=== PATIENT | female | born 1965 | race Caucasian/White ===

== ENCOUNTER 2018-02-28 08:43 | Observation (INO) | payer OTHER, MEDICAID, SELFPAY ==
[2018-02-28] VITALS (19 sets, daily range): BP systolic 86–137; BP diastolic 50–89; PULSE 59–81; RESP 13–24; TEMP 36.2–37.2; O2SAT 94–100; BMI 29.5
--- NOTE | 2018-02-28 | PATH_ITS ---
[facility] Accession Number: [id number] . 01 Material submitted: . BILATERAL FALLOPIAN TUBES AND OVARIES . 02 Diagnosis: Bilateral Fallopian Tubes And Ovaries: Cellular fibrothecoma involving one ovary, benign. Multiple serous cysts involving opposite ovary. Fallopian tubes unremarkable. I/03/07/2018 . 02 Comment: This case is reviewed by Drs. Danielle and Antonino, who agree with the diagnosis. . 02 Electronically signed: . Colin Pozo MD, Pathologist NPI- [id number] . 01 Gross description: . Received in formalin, labeled bilateral fallopian tubes + ovaries, are multiple pieces of apparent ovarian tissue (11.2 x 7.5 x 2.0 cm in aggregate) and two fimbriae (fimbria #1-1.3 x 1.2 x 0.3 cm; fimbria #2-2.5 x 1.5 x 0.4 cm). The ovarian tissue has denny-yellow shiny bosselated and focally flat and cystic (0.1 cm-1.0 cm) serosa. The parenchyma is denny-yellow and red-brown solid and firm. The fimbriae are denny and unremarkable. Double [employer]er ovarian tissue is submitted in cassettes A1 and A2. The fimbriae are bisected and entirely submitted in cassettes A3 and A4. ([id number]) /[facility] . 02 Microscopic: . Sections of the ovarian tissue reveal a tumor which apparently is involving one of the ovaries. The tumor is characterized by a solid proliferation of spindle-shaped cells consistent with ovarian stroma. The cells are arranged in a fascicular and somewhat storiform pattern, and there are nests of small lut einized cells scattered throughout. Mitotic figures are present and are enumerated to be as many as 4 per 10 high-powered field. There is no evidence of necrosis. There is no cellular atypia. The histology is felt to be quite consistent with a cellular fibrothecoma, and in spite of the mitotic activity is considered to be clinically benign. In order to confirm this impression, immunohistochemistry is performed. . IMMUNOHISTOCHEMISTRY RESULTS: Inhibin: Cells negative Calretinin: Scattered positive tumor cells EMILIO: Tumor cells negative Smooth muscle actin: Tumor cells negative, blood vessels stain positive Desmin: Tumor cells negative WT-1: Tumor cells strongly positive CD56: Tumor cells strongly positive Ki-67: Less than 5% cells stain positive . INTERPRETATION: This immunophenotype appears to support the light microscopic impression of a cellular fibrothecoma. The sections apparently from the other opposite ovary reveal multiple benign serous cysts, but negative for any evidence of the stromal tumor previously described. The fallopian tubes are essentially unremarkable. . 02 Pathologist provided ICD-10: D27.9 . 02 CPT . 798320, [id number], [id number] Performed at: 01 [facility] [address] [id number] MD Barron Snell MD Phone: [phone] Performed at: 02 [facility] [place] [address] [place], [place] [id number] MD Jaxon Panda MD Phone: [phone]
--- NOTE | 2018-02-28 09:50 | DI.CT.S_ITS ---
PROCEDURE: CT ABDOMEN PELVIS W CON INDICATIONS: severe abdominal pain, N/V TECHNIQUE: After the administration of intravenous contrast, 5 mm thick sections acquired from the diaphragm to the symphysis. 5 mm coronal and sagittal reformats were acquired. For radiation dose reduction, the following was used: automated exposure control, adjustment of mA and/or kV according to patient size. COMPARISON: None. FINDINGS: Image quality: Excellent. ABDOMEN: Lung bases: Lung bases are clear. Heart size is normal. Solid organs: Liver is normal in size and enhancement. Gallbladder appears normal. Biliary system is non dilated. Pancreas enhances normally. Spleen is normal in size and enhancement. No adrenal nodules. Kidneys demonstrate normal size and enhancement, without hydronephrosis. Peritoneum and bowel: Bowel loops demonstrate normal wall thickness and caliber. No free fluid or air. Nodes and vessels: No retroperitoneal or mesenteric adenopathy by size criteria. Aorta and inferior vena cava are normal in size. Miscellaneous: No ventral hernias. At the right lower quadrant contiguous with small bowel loops there is a small amount of free fluid near the expected position of the appendix. A rounded calcification measuring approximately 4 mm in this area also is present posteriorly, and the finding was discussed with the emergency room physician. Reportedly the patient has had their appendix removed previously. There also is adjacent sigmoid diverticulosis and the appearance might represent acute sigmoid diverticulitis similar to the right of midline. PELVIS: Genitourinary: Bladder wall thickness is normal. At the superior left adnexal area there is a solid-appearing masslike structure, measuring up to 6.5 cm AP, 5.7 cm transverse and 5.2 cm craniocaudad. The etiology is uncertain, but there is a potential of both left ovarian torsion or a left ovarian malignancy as cause of this appearance. At the upper border of this structure is a rounded cysts, measuring up to 3.4 cm. Miscellaneous: No inguinal hernias or adenopathy. Sigmoid diverticulosis is present, the sigmoid colon swings rightward within the lower pelvis. Bones: No suspicious bony lesions. No vertebral body compression fractures. IMPRESSION: 1. There is a complex constellation of findings and the exact etiology for the reported severe recurrent abdominal pain is not definitively established by this CT scanning. The left adnexal masslike structure is considered more likely malignancy than ovarian torsion, by appearance. Torsion remains a potential cause of this appearance. This structure at the left adnexa is shifted cephalad away from the usual position of the left ovary, and it may not be effectively assessed by transvaginal pelvic ultrasound. Pelvic ultrasound may be warranted, however, to provide additional assessment of vascularity and appearance of the left adnexal mass utilizing both transabdominal and transvaginal scanning. 2. At the right lower quadrant in the expected region of the appendix there is what appears to be inflammatory free fluid. However, on discussing this case with the emergency room physician the appendix has reportedly been removed and the fluid is not directly contiguous with the inferior tip of the cecum. It is, however, contiguous with a rightward extension of the sigmoid colon where significant diverticulosis is present. Acute diverticulitis may explain this finding. Note: The findings were discussed in detail with the emergency room physician caring for the patient. Surgical consultation is anticipated. Dictated by: Mikey Nath M.D. on 02/28/2018 at 11:24 Approved by: Mikey Nath M.D. on 02/28/2018 at 11:39
--- NOTE | 2018-02-28 09:54 | ED.ABDPAIN ---
HPI - Abdominal Pain General Chief Complaint: Abdominal Pain Stated Complaint: SEVERE ABD PAIN LEFT SIDE Time Seen by Provider: 02/28/18 08:54 Source: patient and family Mode of arrival: ambulatory Limitations: no limitations History of Present Illness HPI narrative: 52-year-old female presents with her in the chief complaint of severe abdominal pain. She states her symptoms have been worsening for the past 10 days and initiated on the right side of her lower abdomen event since spread throughout her belly though it seems to be most focused in her left lower quadrant right now. She has a terrible appetite and lost 7 lb. She admits to nausea but denies vomiting. Her pain is worse with any motion. She denies any radiation of her symptoms. She has improvement with rest. She denies fever or chills. MD complaint: abdominal pain Onset (ago): day(s) Pain Consistency: constant Location: diffuse Severity: severe Severity scale (1-10): 10 Quality: cramping Radiation: none Migration to: no migration Relieving factors: rest Exacerbating factors: movement Associated symptoms: nausea Related Data Home Medications Medication Instructions Recorded Confirmed No Known Home Medications 02/28/18 02/28/18 Allergies Allergy/AdvReac Type Severity Reaction Status Date / Time No Known Drug Allergies Allergy Verified 02/28/18 09:54 Review of Systems Review of Systems All systems reviewed & are unremarkable except as noted in HPI and below Constitutional Denies chills, Denies fever(s), Denies lethargy and Denies weakness Eyes Denies change in vision, Denies eye discharge, Denies irritation and Denies loss of vision ENT Ears, Nose, Mouth, and Throat: Denies change in voice, Denies neck pain and Denies sore throat Cardiovascular Denies chest pain, Denies irregular heart rhythm, Denies lightheadedness, Denies palpitations, Denies dyspnea, Denies dyspnea on exertion and Denies orthopnea Respiratory Denies cough, Denies dyspnea, Denies dyspnea on exertion and Denies wheezing Gastrointestinal Gastrointestinal: Reports abdominal pain, Denies change in bowel habits, Denies diarrhea, Reports nausea and Denies vomiting Genitourinary Denies hematuria, Denies flank pain, Denies urinary incontinence and Denies urinary urgency Musculoskeletal Denies neck pain Integumentary/Breasts Denies pruritus, Denies erythema, Denies rash and Denies wounds Neurologic Denies confusion, Denies loss of vision and Denies weakness Psychiatric Denies anxiety, Denies confusion, Denies depression, Denies homicidal ideation and Denies suicidal ideation Endocrine Denies palpitations Hematologic/Lymphatic Denies easy bruising Allergic/Immunologic Denies wheezing [facility] Surgical History Hx of appendectomy (Acute) Hx of tubal ligation (Acute) Previous section (Acute) Social History household members: spouse Smoking Status: Never smoker Exam Narrative Exam Narrative: 52-year-old female in obvious distress, in tears, clutching her lower abdomen Initial Vital Signs Initial Vital Signs: Vital Signs Temperature 98.4 F 02/28/18 09:16 Pulse Rate 70 02/28/18 09:16 Respiratory Rate 18 02/28/18 09:16 Blood Pressure 113/60 02/28/18 09:16 Pulse Oximetry 100 02/28/18 09:16 Const General: cooperative, well developed and acute distress Nutritional Appearance: well nourished Orientation: alert, awake, oriented x3 and not confused HENUT Head: normocephalic and atraumatic Ears: external ears normal and TM's normal bilaterally Nose: external nose normal and No nasal discharge Face and sinus: sinuses nontender, face symmetric, no sinus tenderness and No dry mucous membranes Mouth: oral mucosae normal and moist mucous membranes Teeth and gingiva: dentition normal Throat: tonsils normal and uvula midline Chest Chest: normal inspection of the chest Resp Effort & Inspection: normal respiratory effort, able to speak in complete sentences, no respiratory distress and no use of accessory muscles Auscultation: clear to auscultation bilaterally, no rales, no rhonchi and no wheezes GI Inspection: distended Palpation: firm, guarding and tender (Severe tenderness throughout, positive heel tap and so as) Auscultation: normal bowel sounds Course Orders Ordered: Lactated Ringer's (Lactated Ringers) 1,000 mls @ 100 mls/hr IV CONT BRANDEE Stop: 03/01/18 04:38 Last Admin: 02/28/18 18:51 Dose: 100 mls/hr Ketorolac Tromethamine (Toradol) 30 mg IV Q6HR PRN PRN Reason: Pain, Moderate (4-6) Stop: 03/05/18 18:07 Ondansetron HCl (Zofran) 4 mg IV Q6HR PRN PRN Reason: Nausea And Vomiting Oxycodone/Acetaminophen (Percocet 5/325) 2 tab PO Q4HR PRN PRN Reason: Pain, Severe (7-10) Discontinued Medications Benzocaine (Cepacol Lozenge) 1 each PO PRN PRN PRN Reason: Sore Throat Bupivacaine HCl/Epinephrine Bitart (Sensorcaine 0.5% W/ Epi (Pf)) 30 ml INJ NOW ONE Stop: 02/28/18 17:28 Last Admin: 02/28/18 17:27 Dose: 13 ml Fentanyl (Sublimaze) 100 mcg IV Q5MIN PRN PRN Reason: Pain, Severe (7-10) Hydromorphone HCl (Dilaudid) 1 mg IV Q15M BRANDEE Stop: 02/28/18 10:01 Last Admin: 02/28/18 12:04 Dose: 1 mg Admin: 02/28/18 10:17 Dose: 1 mg Sodium Chloride (Normal Saline 0.9%) 1,000 mls @ 150 mls/hr IV CONT BRANDEE Last Infusion: 02/28/18 12:05 Dose: 0 mls/hr Admin: 02/28/18 10:16 Dose: 150 mls/hr Cefazolin Sodium/Dextrose (Ancef) 2 gm in 100 mls @ 200 mls/hr IV NOW ONE Stop: 02/28/18 16:42 Last Infusion: 02/28/18 16:59 Dose: 0 mls/hr Admin: 02/28/18 16:50 Dose: 200 mls/hr Lactated Ringer's (Lactated Ringers) 1,000 mls @ 100 mls/hr IV CONT BRANDEE Last Infusion: 02/28/18 16:12 Dose: 100 mls/hr Admin: 02/28/18 15:55 Dose: 100 mls/hr Lactated Ringer's (Lactated Ringers) 1,000 mls @ 42 mls/hr IV CONT BRANDEE Last Infusion: 02/28/18 18:47 Dose: 0 mls/hr Admin: 02/28/18 16:15 Dose: 42 mls/hr Meperidine HCl (Demerol) 25 mg IV Q5MIN PRN PRN Reason: Pain or shivering Morphine Sulfate (Morphine) 2 mg IV Q5M PRN PRN Reason: Pain, Moderate (4-6) Morphine Sulfate (Morphine) 1 mg IV Q5M PRN PRN Reason: Pain, Mild (1-3) Ondansetron HCl (Zofran) 4 mg IV NOW ONE Stop: 02/28/18 09:41 Last Admin: 02/28/18 10:16 Dose: 4 mg Ondansetron HCl (Zofran) 4 mg IV NOW PRN PRN Reason: Nausea And Vomiting Consultations Consultation #1: Has her abdominal exam was considered quite impressive and concerning I called Dr. Monzon from General surgery nearly immediately upon completion of my exam. He has evaluated the patient at the bedside and requests abdominal CT before further recommendations can be made Consultation #2: Upon receipt of CT scan, and notice of ovarian involvement I placed a call to Dr. Morris who was happy see the patient at the bedside. She decides to take patient to OR Vital Signs - 8 hr 02/28/18 12:13 02/28/18 13:10 02/28/18 14:07 Temperature 99.0 F Pulse Rate 81 76 73 Respiratory Rate 17 24 16 Blood Pressure 126/89 H Blood Pressure [Left Arm] 107/60 132/74 H Pulse Oximetry 98 96 02/28/18 15:30 02/28/18 16:09 02/28/18 18:01 Temperature 97.1 F L 97.5 F L 97.1 F L Pulse Rate 66 72 60 Respiratory Rate 17 20 17 Blood Pressure 125/78 H 135/79 H 86/50 L Blood Pressure [Left Arm] Pulse Oximetry 96 94 02/28/18 18:06 02/28/18 18:11 02/28/18 18:16 Temperature Pulse Rate 60 59 L 71 Respiratory Rate 13 13 19 Blood Pressure 89/51 L 94/54 L 101/58 L Blood Pressure [Left Arm] Pulse Oximetry 94 94 96 02/28/18 18:22 02/28/18 18:31 02/28/18 18:35 Temperature 97.3 F L Pulse Rate 70 67 62 Respiratory Rate 16 18 16 Blood Pressure 110/67 113/67 108/71 Blood Pressure [Left Arm] Pulse Oximetry 95 96 02/28/18 19:05 Temperature 97.9 F Pulse Rate 67 Respiratory Rate 16 Blood Pressure 123/72 H Blood Pressure [Left Arm] Pulse Oximetry 94 MDM - Abdominal Pain Lab Data Result diagrams: 02/28/18 10:12 02/28/18 10:12 Lab Results 02/28/18 02/28/18 02/28/18 Range/Units 10:12 10:12 10:12 WBC 7.7 (4.5-11.0) X10^3/uL RBC 4.53 (4.0-5.2) X10^6/uL Hgb 13.6 (12.0-16.0) g/dL Hct 39.8 (36-46) % MCV 87.7 (80-100) fL MCH 30.1 (26-34) PG MCHC 34.3 (30-36) % RDW 12.9 (11.6-14.8) % Plt Count 239 (150-400) X10^3/uL Neut % (Auto) 67.5 (50-75) % Lymph % (Auto) 18.1 L (25-40) % [place] % (Auto) 13.6 (3-14) % Eos % (Auto) 0.4 L (2-4) % Baso % (Auto) 0.4 (0-2) % Neut # (Auto) 5200 (5839-0675) /uL Sodium 141 (137-145) mmol/L Potassium 3.9 (3.4-5.1) mmol/L Chloride 102 (98-107) mmol/L Carbon Dioxide 25 (22-32) mmol/L BUN 11 (7-17) mg/dL Creatinine 0.60 (0.52-1.04) mg/dL Estimated GFR > 60.0 (>60) mL/min BUN/Creatinine Ratio 18.3 (6-22) Glucose 103 H (70-100) mg/dL Lactate 1.3 (0.7-2.1) mmol/L Calcium 9.5 (8.4-10.2) mg/dL Total Bilirubin 0.8 (0.2-1.3) mg/dL AST 26 (14-36) IU/L ALT 34 (9-52) IU/L Alkaline Phosphatase 68 (38-126) U/L Total Protein 8.0 (6.3-8.2) g/dL Albumin 4.6 (3.5-5.0) g/dL Globulin 3.4 (1.7-4.1) g/dL Albumin/Globulin Ratio 1.4 (1.0-2.8) Lipase 148 (23-300) U/L Discharge Plan Departure Patient Disposition: Admitted As Inpatient Clinical Impression: Mass of left ovary, Pelvic pain Discharge Date/Time: 02/28/18 13:37 Interventions: ED Discharge Assessment Last Done: 02/28/18 13:26 Admit Date/Time: 02/28/18 13:12 Admit Provider: Lisa Morris
[2018-02-28] MEDS: ONDANSETRON 4 MG/2 ML INJ IV (10:16)
[2018-02-28] MEDS: SODIUM CHLORIDE 0.9% 1,000 ML 150 ML IV (10:16)
[2018-02-28] MEDS: HYDROMORPHONE 1 MG INJ IV ×2 (10:17→12:04)
[2018-02-28 10:26] LABS: Add Manual Diff / Slide Review NO; Basophils Percent Auto 0.4 % (0-2); Eosinophils Percent Auto 0.4 % (2-4); Hematocrit 39.8 % (36-46); Hemoglobin 13.6 g/dL (12.0-16.0); Lymphocytes Percent Auto 18.1 % (25-40); Mean Corpuscular HGB Conc 34.3 % (30-36); Mean Corpuscular Hemoglobin 30.1 PG (26-34); Mean Corpuscular Volume 87.7 fL (80-100); Monocytes Percent Auto 13.6 % (3-14); Neutrophils Absolute Auto 5200 /uL (3000-5900); Neutrophils Percent Auto 67.5 % (50-75); Platelet Count 239 X10^3/uL (150-400); Red Blood Cell Count 4.53 X10^6/uL (4.0-5.2); Red Cell Distribution Width 12.9 % (11.6-14.8); White Blood Cell Count 7.7 X10^3/uL (4.5-11.0)
[2018-02-28 10:33] LABS: Lactate (Lactic Acid) 1.3 mmol/L (0.7-2.1)
[2018-02-28 10:34] LABS: Alanine Aminotransferase 34 IU/L (9-52); Albumin 4.6 g/dL (3.5-5.0); Albumin Globulin Ratio 1.4 (1.0-2.8); Alkaline Phosphatase 68 U/L (38-126); Aspartate Aminotransferase 26 IU/L (14-36); BUN Creatinine Ratio 18.3 (6-22); Bilirubin Total 0.8 mg/dL (0.2-1.3); Blood Urea Nitrogen 11 mg/dL (7-17); Calcium 9.5 mg/dL (8.4-10.2); Carbon Dioxide 25 mmol/L (22-32); Chloride 102 mmol/L (98-107); Estimated Glomerular Filt Rate > 60.0 mL/min (>60); Globulin 3.4 g/dL (1.7-4.1); Glucose 103 mg/dL (70-100); HEMOLYSIS 23 (0-50); Lipase 148 U/L (23-300); Potassium 3.9 mmol/L (3.4-5.1); Sodium 141 mmol/L (137-145)
--- NOTE | 2018-02-28 14:12 | P.HPOB_ITS ---
History of Present Illness Reason for admission: pelvic mass Narrative: ENDER HERNANDEZ is a 52 year old female who presented to the emergency room with severe lower quadrant pain. Patient states she has been having intermittent lower quadrant pain for months. The pain would last for about 3 days. This time the pain came and did not resolve and has been over 10 days. She feels like she can't eat very much. She denies any diarrhea or constipation. Pain originally started a right lower quadrant now is centered more in the left lower quadrant. She states she feels very bloated. She denies any fevers. She denies any urinary tract infection symptoms. She denies any vaginal bleeding. She is postmenopausal. Patient has a 6.5 x 5.7 x 5.2 cm mass in the left adnexal area with some free fluid. Probability ovarian nature per the radiologist. [facility] Surgical History Hx of appendectomy (Acute) Hx of tubal ligation (Acute) Previous section (Acute) Social History household members: spouse Smoking Status: Never smoker Meds Home Medications Medication Instructions Recorded Confirmed Type No Known Home Medications 02/28/18 02/28/18 History Allergies Allergy/AdvReac Type Severity Reaction Status Date / Time No Known Drug Allergies Allergy Verified 02/28/18 09:54 Review of Systems Review of Systems All systems reviewed & are unremarkable except as noted in HPI and below Exam Vital Signs (past 8 hours): - 02/28/18 09:16 02/28/18 10:15 02/28/18 11:15 Temperature 98.4 F Pulse Rate 70 71 72 Respiratory Rate 18 19 15 Blood Pressure 113/60 Blood Pressure [Left Arm] 111/65 103/62 Pulse Oximetry 100 100 100 02/28/18 12:13 02/28/18 13:10 02/28/18 14:07 Temperature 99.0 F Pulse Rate 81 76 73 Respiratory Rate 17 24 16 Blood Pressure 126/89 H Blood Pressure [Left Arm] 107/60 132/74 H Pulse Oximetry 98 96 Oxygen Delivery Method Room Air Narrative Exam Narrative: HEENT exam within normal limits. No thyromegaly. Lungs are clear to auscultation percussion. Heart is regular rate and rhythm no S3-S4 or murmurs. Abdomen is distended with tenderness throughout. Difficult to determine if she has rebound. Pelvic exam was not performed. Extremities without edema and nontender Objective Labs Result Diagrams: 02/28/18 10:12 02/28/18 10:12 Labs: Laboratory Results - last 24 hr 02/28/18 02/28/18 02/28/18 10:12 10:12 10:12 WBC 7.7 RBC 4.53 Hgb 13.6 Hct 39.8 MCV 87.7 MCH 30.1 MCHC 34.3 RDW 12.9 Plt Count 239 Neut % (Auto) 67.5 Lymph % (Auto) 18.1 L [place] % (Auto) 13.6 Eos % (Auto) 0.4 L Baso % (Auto) 0.4 Neut # (Auto) 5200 Sodium 141 Potassium 3.9 Chloride 102 Carbon Dioxide 25 BUN 11 Creatinine 0.60 Estimated GFR > 60.0 BUN/Creatinine Ratio 18.3 Glucose 103 H Lactate 1.3 Calcium 9.5 Total Bilirubin 0.8 AST 26 ALT 34 Alkaline Phosphatase 68 Total Protein 8.0 Albumin 4.6 Globulin 3.4 Albumin/Globulin Ratio 1.4 Lipase 148 Assessment & Plan (1) Mass of left ovary: Current visit: Yes Status: Acute (2) Pelvic pain: Current visit: Yes Status: Acute Plan: Assessment/Plan Narrative: Discussed with the patient possible diagnosis of this mass. It could be a ovarian tumor either benign or malignant. Could be a pedunculated myoma. Unclear if this is the cause of her pain or not. Certainly if she has torsion of the mass that could be causing her intermittent pain. Discussed if this is ovarian cancer that she would need a staging laparotomy. She would probably be best served by having this performed by a [employer] oncologist. If this is a benign process just removal of this mass is appropriate. At the time of surgery other signs of cause of the pain could be undertaken. Patient was offered to be discharged and follow up with a [employer] oncologist versus with proceeding with a laparoscopy with a possible need for a 2nd procedure. Patient wishes to proceed with laparoscopy here. Consent form was reviewed with the patient. Risk of damage to internal organs such as bowel, bladder, and ureters were discussed with the patient. Small risk of bleeding or complication from anesthesia. Discussed the small risk of infection and she will be given IV antibiotics at the time of procedure. She is agreeable to have the pathologist look at the tissue. She understands if there is something that it involving her intestines I will be asking the general surgeon to come in and look at her. She is aware she might end up with a larger abdominal incision.
--- NOTE | 2018-02-28 14:23 | PC.NURSE ---
Patient arrived to room 201, oriented to room and call light. Patient notified that UA is needed, she states she just went. specimen collection cup placed in bathroom for next void. Patient reports continuous aching to abdomen with intermittent stabbing pains to LLQ, tolerating pain at this time, as she reports pain medication given downstairs made her feel kind of spacey. Bert at bedside. Patient NPO for anticipated surgery today with Dr. Morris.
[2018-02-28] MEDS: LACTATED RINGERS 1,000 ML 100 ML IV ×2 (15:55→18:51)
[2018-02-28] MEDS: LACTATED RINGERS 1,000 ML 42 ML IV (16:15)
--- NOTE | 2018-02-28 16:22 | PC.NURSE ---
Jaquelin shift note: Patient transported to OR with Ray RN and second RN accompanied by . Patient awake and alert, calm, and pleasant. NPO x 24 hours, initiated IVF.
--- NOTE | 2018-02-28 16:45 | PM.PREOP ---
Pre-operative Note Interval Note Pre-op Check: Yes History & Physical exam performed today by Physician Changes: No
[2018-02-28] MEDS: CEFAZOLIN 2 GM/100 ML FROZ.PIGGY IV (16:50)
--- NOTE | 2018-02-28 17:14 | SUR.OPER ---
Lithotomy on padded OR bed, head on pillow, arms secured on padded arm boards at <90 degrees abduction. Legs secured in padded yellow fins stirrups.
[2018-02-28] MEDS: BUPIVACAINE 0.5% W/ EPI (PF) VIAL 30 ML INJ (17:27)
--- NOTE | 2018-02-28 18:23 | P.OP_ITS ---
Operative Date/Time/Diagnoses Date of procedure: 02/28/18 Time of procedure: 18:10 Pre-op diagnosis: Pelvic pain and adnexal mass Post-op diagnosis: same Procedure & Clinicians Procedure: Laparoscopic bilateral salpingo-oophorectomy Same procedure as scheduled: No (Right ovary had excrescences that warranted removed) Indications: Patient with severe abdominal pain and large adnexal mass Surgeon: Lisa Morris Click Yes if Unassisted: Yes Anesthesia Type: General Operative Notes Findings: Filmy adhesions between the liver and the anterior abdominal wall. Large likely torsed mass attached to the left ovary. Adhesions of the omentum to the uterus and the anterior abdominal wall as well as the right tube and ovary. Excrescences on the surface of the right ovary. Adhesions behind the uterus. Adhesions of small bowel to the posterior right broad ligament. Normal appearing uterus. Closure Type: primary Specimen(s): none sent (Bilateral tubes and ovaries, peritoneal fluid for cytology) Estimated Blood Loss (mL): 10 Blood products transfused: none Procedure in detail: Patient was brought to the operating room where she underwent general anesthesia. She was placed in low [facility] stirrups and prepped and draped in usual sterile fashion. Antibiotics were in prior to beginning of the case. Pulsatile stockings were in place and functional. Warming was with blankets. A single-tooth tenaculum was placed on the anterior lip of the cervix and the cervix dilated to #6 Hegar dilator. The Asha uterine manipulator was placed and balloon inflated with 3 mL of air. The area of the incisions were injected with half percent Marcaine with epinephrine. An incision was made in the umbilicus with a scalpel. The incision was carried down the fascial layer which was incised transversely and held with 0 Vicryl suture. The perineum was entered bluntly. The his son cannula was placed in the abdomen. The abdomen was insufflated with CO2. 2 5 mm trocar were placed under direct visualization in the right and left lower quadrant. There did not appear to be any damage with placement of the trocars. There was free blood stained fluid next to the uterus which was suctioned and sent for cytology. Adhesions of the omentum to the uterus were removed with the PK forceps. The left fallopian tube was grasped and the infundibulopelvic ligament was cauterized and cut. Staying close to the ovary continuing to cauterize and cut along the broad ligament until the utero-ovarian ligament and tube were cauterized and cut allowing the left tube and ovary with the mass to be freed. Additional dissection bluntly to allow visualization of the right tube and ovary. The right tube and ovary were also removed in the same fashion. Adequate hemostasis was noted. An Endo-Catch bag was placed through the umbilical incision and both tubes and ovaries were placed in the bag and brought up to the umbilical incision. The tubes and ovaries were removed without spillage. The abdomen was reinsufflated and adequate hemostasis was noted. Irrigation was performed. The CO2 was allowed to escape from the abdomen. The trochars were removed. The fascial layer of the umbilicus was closed with 0 Vicryl x2. Skin was closed with 4-0 Monosoft. The patient went to recovery room in good condition. Counts of instruments and sponges were correct. Complications: none Condition: stable Disposition: observation Plan for aftercare: Patient will be monitored for pain and nausea improvement. Likely home in less than 24 hrs.
--- NOTE | 2018-02-28 18:31 | SUR.PHASEI ---
Report called to Amelia
--- NOTE | 2018-02-28 18:47 | SUR.PHASEI ---
Patient transferred to the floor, VS stable. Drsg cdi x3. Anna-pad checked with Amelia. IV saline locked.
--- NOTE | 2018-02-28 18:57 | PC.NURSE ---
Jaquelin shift note: Patient return to AC from recovery with Kiet RN. Patient awake and alert, VSS and O2 sat 97% on RA. Incisions x 3 to left/right, mid abdomen, with bandaids, CDI. Abdomen round, hypoactive BS. Peripad in place, CDI. IVF initiated, no nausea or vomiting. at bedside providing supportive care, call light within reach.
[2018-03-01 00:50] VITALS: BP 131/74; PULSE 78; RESP 16; TEMP 36.9; O2SAT 94
--- NOTE | 2018-03-01 02:08 | PC.NURSE ---
Patient has 3 lap sites covered by bandaids. The center bandaid by umbilicus has old drainage with no new drainage.
[2018-03-01 05:00] VITALS: BP 148/76; PULSE 77; RESP 17; TEMP 36.6; O2SAT 99
--- NOTE | 2018-03-01 07:11 | PM.DS.1 ---
History of Present Illness Date Patient Seen: 03/01/18 Time Patient Seen: 07:16 Chief complaint: SEVERE ABD PAIN LEFT SIDE Narrative: Patient with severe abdominal pain for the last 11 days with intermittent pain prior to that time who came in finally to the emergency room. She was found to have a 6 cm solid appearing mass, likely ovary on CT scan. She was taken for laparoscopic removal. Discharge Providers Date of admission: 02/28/18 13:12 Discharge provider: Lisa Morris MD Summary Discharge Diagnosis: Left ovarian cyst likely torsion status post laparoscopic BSO with lysis of adhesions Hospital Course: Patient recovered from anesthesia and is feeling much better than prior to the surgery. She denies any nausea. She has minimal gassy pains in her abdomen. Patient denies any need for pain medicine. Status at Discharge Functional status at discharge: independent ambulation Overall status at discharge: patient is progressing back to baseline Time Spent with Patient Less than 30 minutes Exam Vital Signs (past 8 hours): - 03/01/18 00:50 03/01/18 05:00 Temperature 98.5 F 97.9 F Pulse Rate 78 77 Respiratory Rate 16 17 Blood Pressure 131/74 H 148/76 H Pulse Oximetry 94 99 Oxygen Delivery Method Room Air Oxygen Flow Rate 2 Narrative Exam Narrative: Abdomen is soft, minimally tender. Her in dressings are dry. Minimal vaginal bleeding. Extremities without edema and nontender. Objective Labs Result Diagrams: 02/28/18 10:12 02/28/18 10:12 Labs: Laboratory Results - last 24 hr 02/28/18 02/28/18 02/28/18 10:12 10:12 10:12 WBC 7.7 RBC 4.53 Hgb 13.6 Hct 39.8 MCV 87.7 MCH 30.1 MCHC 34.3 RDW 12.9 Plt Count 239 Neut % (Auto) 67.5 Lymph % (Auto) 18.1 L [place] % (Auto) 13.6 Eos % (Auto) 0.4 L Baso % (Auto) 0.4 Neut # (Auto) 5200 Sodium 141 Potassium 3.9 Chloride 102 Carbon Dioxide 25 BUN 11 Creatinine 0.60 Estimated GFR > 60.0 BUN/Creatinine Ratio 18.3 Glucose 103 H Lactate 1.3 Calcium 9.5 Total Bilirubin 0.8 AST 26 ALT 34 Alkaline Phosphatase 68 Total Protein 8.0 Albumin 4.6 Globulin 3.4 Albumin/Globulin Ratio 1.4 Lipase 148 Discharge Plan Discharge Plan Patient Disposition: Home Provider Discharge Instructions Diet: Regular Activity: as tolerated Skin/Wound/Dressing Care Report to your healthcare provider any signs of infection, such as:: chills, fever, increased pain and unusual drainage Dressing: can remove bandage after 24 hours and get steristrips wet pat dry remove in 1 week ok if they fall off prior Discharge Data Attending Provider: Lisa Morris Admit Date/Time: 02/28/18 13:12
[2018-03-01 07:57] VITALS: BP 125/75; PULSE 57; RESP 16; TEMP 37; O2SAT 99
--- NOTE | 2018-03-01 12:10 | PC.NURSE ---
discharge pt states pain is controlled without medication. up independently in room. d/c instructions provided to pt and . notified of f/u apt with MD and to contact MD if any additional questions or concerns. Rx for pain meds given to pt as ordered by MD. pt states she took all belongings with her. PIV removed prior to d/c. pt left in w/c with [employer] escort and to car.
--- NOTE | 2018-03-01 15:52 | CM.IDA ---
DCP Assessment Note: Home today w/spouse, no barriers to safe DC home. Discharge Planning/Care Management CM Discharge Assessment Start: 03/01/18 07:54 Freq: Status: Discharge Protocol: Document 03/01/18 07:54 BRYAN (Rec: 03/01/18 07:57 BRYAN [id number]) Discharge Planning Assessment Assigned Athletic Coordinator BRYAN DPOA/Assigned Designee Name Bert Yusuf Contact Information [phone] Advance Directives? No History Provided By Patient Prior Living Arrangements House Household Members spouse Type of transporation used prior to Drives own vehicle admit Independent with ADL's Yes Is patient alert and oriented? Yes Barriers to Discharge No Discharge Plan Home Transportation Arrangement Spouse Referrals Initiated None needed Additional Comment Close outpt follow up Whiteboard Updated in Patient Room with Yes name and ext. # of Athletic Coordinator
--- NOTE | 2018-03-04 | PATH_ITS ---
Note [facility] Accession Number: [id number] TESTS RESULT FLAG UNITS REF RANGE LAB Clinician Provided Cytology Information No. of containers..01 Other (Miscellaneous) 01 PERITONEAL FLUID DIAGNOSIS: 02 PERITONEAL FLUID NEGATIVE FOR MALIGNANT CELLS. Pathologist ICD10: 02 R18.8 02 Colin Pozo MD, Pathologist NPI- [id number] David Boone, Artist Agent ([facility]) 01 20 CC, PINK, CLOUDY /LCS FLAG LEGEND: L-Low Normal,H-High Normal,LL-Alert Low,HH-Alert High <-Panic Low,>-Panic High,A-Abnormal,AA-Critical Abnormal Performed at: 01 =Z [facility] [address] [place] [address] [address] [facility], [place] [address] Barron Snell MD, 02 LCLWA [facility] [address] [place] [id number] Jaxon Panda MD, Performed at: 01 [facility] [address], [place], [place] [id number] MD Barron Snell MD Phone: [phone]
== END 2018-03-01 11:10 | disposition home or self-care (01) ==
LOC: ED 13:11 → AC 13:33
PROVIDERS: Admitting Provider Specialist; Emergency Provider Emergency Medicine; Visit Provider Specialist
PROC: (CPT 49320; principal; 2018-02-28 14:00)
DX: N83.9 Noninflammatory disorder of ovary, fallopian tube and broad ligament, unspecified (principal); K66.0 Peritoneal adhesions (postprocedural) (postinfection); R18.8 Other ascites; D27.9 Benign neoplasm of unspecified ovary
CPT/HCPCS: 58661; 36591; 74177; 80053; 83605; 83690; 85025; 88307; 88341; 88342; 96361; 96374; 96375; 96376; 99283; 99285; G0378; J0330; J0690; J1100; J1170; J2250; J2405; J2704; J3010; Q9967

== ENCOUNTER → 2018-11-15 09:21 | Outpatient (CLI) | payer OTHER, MEDICAID, SELFPAY ==
[2018-02-28 13:39] VITALS: BMI 29.5
--- NOTE | 2018-11-15 | DI.US.S_ITS ---
PROCEDURE: US ABDOMEN LIMITED INDICATIONS: RIGHT SIDED SUBCUTANEOUS MASS TECHNIQUE: Real-time focused scanning was performed of the abdomen, with image documentation. COMPARISON: [facility], CT, CT ABDOMEN PELVIS W CON, 02/28/2018, 10:47. FINDINGS: 5.5 x 2.1 x 5.4 cm isoechoic lobulated soft tissue mass corresponding to the palpable abnormality. No vascularity. IMPRESSION: Possible lipoma corresponding to the palpable abnormality; however findings are nonspecific and differential diagnosis would include both benign and malignant etiologies. If indicated soft tissue MRI could be performed for further characterization. Dictated by: Gordy JAMESON Interpreted: Aileen White MD on 11/15/2018 at 15:54 Approved by: Aileen White M.D. on 11/18/2018 at 17:30
== END ==
PROVIDERS: Visit Provider Nurse Practitioner Family
DX: R22.2 Localized swelling, mass and lump, trunk (principal)
CPT/HCPCS: 76705

== ENCOUNTER → 2018-11-27 16:19 | Outpatient (CLI) | payer OTHER, MEDICAID, SELFPAY ==
[2018-02-28 13:39] VITALS: BMI 29.5
--- NOTE | 2018-11-27 | DI.MG.S_ITS ---
BILATERAL DIGITAL SCREENING MAMMOGRAM 3D/2D WITH CAD: 11/27/2018 CLINICAL: Routine screening. Baseline by default exam. No prior exams were available for comparison. The tissue of both breasts is heterogeneously dense. This may lower the sensitivity of mammography. Current study was also evaluated with a Computer Aided Detection (CAD) system. No significant masses, calcifications, or other findings are seen in either breast. IMPRESSION: NEGATIVE There is no mammographic evidence of malignancy. A 1 year screening mammogram is recommended. This exam was interpreted at Station ID: [id number]. NOTE: For mammograms, a report in lay terms will be sent to the patient. Approximately 15% of breast malignancies will not be visualized mammographically. In the management of a palpable breast mass, a negative mammogram must not discourage biopsy of a clinically suspicious lesion. Electronically Signed By: Aileen echevarria/myke:11/27/2018 18:46:10 letter sent: Normal Exam ACR BI-RADS Category 1: Negative [id number]
== END ==
PROVIDERS: Visit Provider Nurse Practitioner Family
DX: Z12.31 Encounter for screening mammogram for malignant neoplasm of breast (principal)
CPT/HCPCS: 77063; 77067

== ENCOUNTER 2019-01-15 09:41 | Inpatient (IN) | payer OTHER, MEDICAID, SELFPAY ==
[2018-02-28 13:39] VITALS: BMI 29.5
[2019-01-15] VITALS (23 sets, daily range): BP systolic 102–139; BP diastolic 60–77; PULSE 65–82; RESP 12–24; TEMP 36.1–37.1; O2SAT 91–100; BMI 30.2
--- NOTE | 2019-01-15 | PATH_ITS ---
[facility] Accession Number: [id number] . 01 Material submitted: . colon - PORTION OF SIGMOID COLON . 02 Diagnosis: Portion Of Sigmoid Colon, Resection: Segment of colon with diverticulosis, mural abscess, and serositis, consistent with clinical history of perforated diverticulitis. Negative for dysplasia or malignancy. [facility]/01/21/2019 . 02 Electronically signed: . Stewart Posey MD, PhD, Pathologist NPI- [id number] . 01 Gross description: . Received in formalin, labeled sigmoid colon portion, is an unoriented portion of colon (length-15.2 cm, resection margin #1 diameter-1.5 cm, resection margin #2 diameter-2.5 cm) with attached mesentery (up to 6.5 cm in depth). The resection margins are received stapled. The specimen is focally covered in tyson-white, smooth, shiny exudate. The mucosa is denny with compact distorted folds containing diffuse diverticula. No nodules or masses are identified. The resection margins are inked black. Section code: (A1) resection margin #1, longitudinal sales development representative; (A2) resection margin #2, sales development representative longitudinal section; (A3-A8) sales development representative serial sections submitted from resection margin #1 to #2. ([id number]) /FRR . 02 Pathologist provided ICD-10: K57.20, K65.0 . 02 CPT . 172341 Performed at: 01 [facility] [address] [id number] MD Barron Snell MD Phone: [phone] Performed at: 02 [facility] [address] [place], [place] [id number] MD Vickie Jimenez MD Phone: [phone]
--- NOTE | 2019-01-15 10:24 | ED_ITS ---
HPI - Abdominal Pain General Chief Complaint: Abdominal Pain Stated Complaint: lower abdominal pain/to back Time Seen by Provider: 01/15/19 10:11 Source: patient Mode of arrival: ambulatory Limitations: no limitations History of Present Illness HPI narrative: Patient is a 53-year-old female who presents with severe lower abdominal pain. She had a colonoscopy 5 days ago outpatient just routine. She said she was told she has severe diverticulosis. However she started having severe pain yesterday more in her mid right side. She also has some flank pain. She says every time she urinates she feels better but she denies any urinary frequency or dysuria. She has not had any blood. She denies any history of k idney stones. She sometimes feels nauseated but she has not been vomiting no fevers. MD complaint: abdominal pain Related Data Home Medications Medication Instructions Recorded Confirmed No Known Home Medications 02/28/18 01/15/19 Allergies Allergy/AdvReac Type Severity Reaction Status Date / Time No Known Drug Allergies Allergy Verified 01/15/19 15:39 Review of Systems Review of Systems ROS Unobtainable: All systems reviewed & are unremarkable except as noted in HPI and below Constitutional Denies chills, Denies fever(s), Denies lethargy and Denies weakness Eyes Denies change in vision, Denies eye discharge, Denies irritation and Denies loss of vision Cardiovascular Denies dyspnea and Denies dyspnea on exertion Respiratory Denies cough, Denies dyspnea, Denies dyspnea on exertion and Denies wheezing Gastrointestinal Gastrointestinal: Reports as per HPI Genitourinary Denies hematuria, Denies flank pain, Denies urinary incontinence and Denies uri nary urgency Musculoskeletal Denies back pain, Denies muscle weakness, Denies numbness and Denies tingling Integumentary/Breasts Denies pruritus, Denies erythema, Denies rash and Denies wounds Neurologic Denies loss of vision, Denies numbness, Denies tingling and Denies weakness Allergic/Immunologic Denies wheezing PFSH Medical History Heart murmur (Acute) Surgical History Hx of appendectomy (Acute) Hx of tubal ligation (Acute) Previous section (Acute) S/P laparoscopic procedure (Resolved ~02/28/18) Family History Mother Diabetes mellitus Social History marital status: household members: spouse occupational status: employed Smoking Status: Never smoker alcohol intake: current substance use type: does not use Family History Mother Diabetes mellitus Social History marital status: household members: spouse occupational status: employed Smoking Status: Never smoker alcohol intake: current substance use type: does not use Exam Initial Vital Signs Initial Vital Signs: Vital Signs Temperature 98.8 F 01/15/19 10:01 Pulse Rate 75 01/15/19 10:01 Respiratory Rate 20 01/15/19 10:01 Blood Pressure 137/71 01/15/19 10:01 Pulse Oximetry 100 01/15/19 10:01 Const General: cooperative and well developed Nutritional Appearance: well nourished Orientation: alert, awake, oriented x3 and not confused [facility] Head: normocephalic and atraumatic Nose: external nose normal Eyes General: appearance normal, both eyes and all related structures EOM: EOM intact bilaterally Neck Neck: normal visual inspection and full ROM Chest Chest: normal inspection of the chest Resp Effort & Inspection: normal respiratory effort Auscultation: clear to auscultation bilaterally, no rales, no rhonchi and no wheezes Cardio Rate: regular rate Rhythm: regular rhythm Heart Sounds: S1 normal and S2 normal GI Inspection: normal to inspection Palpation: soft, guarding and tender (Diffusely tender all over abdomen signifi cantly tender in the lower area.) Skin General: no rashes or lesions noted, No jaundice and No petechiae Neuro General: alert, oriented x3, gait normal and no focal motor deficits Speech: speech normal Extrem General: full ROM, no clubbing, cyanosis or edema, no pedal edema and no calf tenderness Course Orders Ordered: ED Orders 01/15/19 10:30 Complete Blood Count AUTO DIFF Stat Comprehensive Metabolic Panel Stat Lipase Stat 01/15/19 11:16 CT abdomen pelvis w con Stat 01/15/19 16:31 Wound Culture and Gram Stain Routine Fentanyl (Sublimaze) 50 mcg IV Q5MIN PRN PRN Reason: Pain, Moderate (4-6) Hydromorphone HCl (Dilaudid) 0.5 mg IV Q2H PRN PRN Reason: Pain, Severe (7-10) Hydromorphone HCl (Dilaudid) 0.5 mg IV Q5MIN PRN PRN Reason: Pain, Moderate (4-6) Last Admin: 01/15/19 17:55 Dose: 0.5 mg Admin: 01/15/19 17:50 Dose: 0.5 mg Admin: 01/15/19 17:45 Dose: 0.5 mg Admin: 01/15/19 17:40 Dose: 0.5 mg Hydroxyzine HCl (Vistaril) 25 mg IM NOW PRN PRN Reason: Pain, Mild (1-3) Sodium Chloride (Normal Saline 0.9%) 1,000 mls @ 150 mls/hr IV CONT BRANDEE Last Infusion: 01/15/19 15:10 Dose: 150 mls/hr Admin: 01/15/19 10:46 Dose: 150 mls/hr Sodium Chloride (Normal Saline 0.9%) 1,000 mls @ 125 mls/hr IV CONT BRANDEE Lactated Ringer's (Lactated Ringers) 1,000 mls @ 42 mls/hr IV CONT BRANDEE Last Infusion: 01/15/19 18:21 Dose: 0 mls/hr Admin: 01/15/19 17:10 Dose: 42 mls/hr Infusion: 01/15/19 17:10 Dose: 42 mls/hr Admin: 01/15/19 15:21 Dose: 42 mls/hr Lorazepam (Ativan) 0.25 mg IV NOW PRN PRN Reason: Anxiety Metoclopramide HCl (Reglan) 10 mg IV NOW PRN PRN Reason: Nausea And Vomiting Ondansetron HCl (Zofran) 4 mg IV NOW PRN PRN Reason: Nausea And Vomiting Discontinued Medications Sodium Chloride 1,000 ml/ (Bacitracin 50,000 unit) 0 ml IRR NOW ONE Stop: 01/15/19 16:40 Last Admin: 01/15/19 16:39 Dose: 50,000 irrig.soln Hydromorphone HCl (Dilaudid) 0.5 mg IV NOW ONE Stop: 01/15/19 10:24 Last Admin: 01/15/19 10:46 Dose: 0.5 mg Hydromorphone HCl (Dilaudid) 1 mg IV NOW ONE Stop: 01/15/19 12:28 Last Admin: 01/15/19 12:47 Dose: 1 mg Piperacillin/Tazobactam/Dextrose (Zosyn) 3.375 gm in 50 mls @ 100 mls/hr IV NOW ONE Stop: 01/15/19 12:56 Last Infusion: 01/15/19 13:17 Dose: 0 mls/hr Admin: 01/15/19 12:47 Dose: 100 mls/hr Ondansetron HCl (Zofran) 4 mg IV NOW ONE Stop: 01/15/19 10:24 Last Admin: 01/15/19 10:47 Dose: 4 mg Vital Signs - 8 hr 01/15/19 10:50 01/15/19 11:02 01/15/19 11:44 Temperature Pulse Rate 72 65 74 Respiratory Rate 24 17 17 Blood Pressure Blood Pressure [Right Arm] 131/68 116/71 119/61 Pulse Oximetry 100 96 93 01/15/19 12:00 01/15/19 12:34 01/15/19 13:21 Temperature Pulse Rate 77 75 80 Respiratory Rate 19 18 18 Blood Pressure Blood Pressure [Right Arm] 111/60 125/70 Pulse Oximetry 97 100 96 01/15/19 14:40 01/15/19 15:15 01/15/19 17:27 Temperature 98.4 F 97.1 F L Pulse Rate 74 72 70 Respiratory Rate 19 14 16 Blood Pressure 120/77 128/68 Blood Pressure [Right Arm] 123/68 Pulse Oximetry 96 97 96 01/15/19 17:32 01/15/19 17:37 01/15/19 17:45 Temperature 98 F 98.1 F 98 F Pulse Rate 69 68 69 Respiratory Rate 16 20 14 Blood Pressure 131/72 137/72 139/66 Blood Pressure [Right Arm] Pulse Oximetry 95 95 95 01/15/19 17:55 01/15/19 18:05 01/15/19 18:15 Temperature 98 F 98 F 98.4 F Pulse Rate 69 71 69 Respiratory Rate 14 15 14 Blood Pressure 121/63 117/63 112/64 Blood Pressure [Right Arm] Pulse Oximetry 96 94 95 01/15/19 18:25 07/03/19 18:40 Temperature 98.4 F 97.7 F Pulse Rate 70 66 Respiratory Rate 12 16 Blood Pressure 109/66 117/71 Blood Pressure [Right Arm] Pulse Oximetry 94 91 MDM - Abdominal Pain Lab Data Attestation: I reviewed the patient's lab results. Result diagrams: 01/15/19 10:30 01/15/19 10:30 Lab Results 01/15/19 01/15/19 Range/Units 10:30 10:30 WBC 8.3 (4.5-11.0) X10^3/uL RBC 5.01 (4.0-5.2) X10^6/uL Hgb 15.1 (12.0-16.0) g/dL Hct 44.3 (36-46) % MCV 88.5 (80-100) fL MCH 30.2 (26-34) PG MCHC 34.2 (30-36) % RDW 12.3 (11.6-14.8) % Plt Count 219 (150-400) X10^3/uL Neut % (Auto) 71.4 (50-75) % Lymph % (Auto) 17.6 L (25-40) % [place] % (Auto) 10.2 (3-14) % Eos % (Auto) 0.2 L (2-4) % Baso % (Auto) 0.6 (0-2) % Neut # (Auto) 5900 (6590-6877) /uL Lymph # (Auto) 1500 (8606-6397) /uL [place] # (Auto) 800 (0-900) /uL Eos # (Auto) 0 (0-450) /uL Baso # (Auto) 100 (0-100) /uL Sodium 141 (137-145) mmol/L Potassium 4.3 (3.4-5.1) mmol/L Chloride 103 (98-107) mmol/L Carbon Dioxide 25 (22-32) mmol/L BUN 10 (7-17) mg/dL Creatinine 0.60 (0.52-1.04) mg/dL Estimated GFR > 60.0 (>60) mL/min BUN/Creatinine Ratio 16.7 (6-22) Glucose 102 H (70-100) mg/dL Calcium 10.1 (8.4-10.2) mg/dL Total Bilirubin 1.0 (0.2-1.3) mg/dL AST 24 (14-36) IU/L ALT 35 (9-52) IU/L Alkaline Phosphatase 71 (38-126) U/L Total Protein 8.7 H (6.3-8.2) g/dL Albumin 4.9 (3.5-5.0) g/dL Globulin 3.8 (1.7-4.1) g/dL Albumin/Globulin Ratio 1.3 (1.0-2.8) Lipase 116 (23-300) U/L Point of care testing: Urine Dip Bedside Urine Glucose Negative Bedside Urine Bilirubin - Negative Bedside Urine Ketone - Negative Urine Specific [place] 1.010 Bedside Urine Occult Blood - Negative Bedside Urine pH 7 Bedside Urine Protein - Negative Bedside Urine Urobilinogen - Negative Bedside Urine Nitrite - Negative Bedside Urine Leukocytes - Negative Esterase Imaging Data CT scan - abdomen: Radiologist's impression: PROCEDURE: CT ABDOMEN PELVIS W CON INDICATIONS: severe ab pain mostly right sided colonoscopy 01/10 TECHNIQUE: After the administration of oral and intravenous contrast, 5 mm thick sections acquired from the diaphragms to the symphysis. 5 mm thick coronal and sagittal reformats were performed. For radiation dose reduction, the following was used: automated exposure control, adjustment of mA and/or kV according to patient size. COMPARISON: [facility] [place], CT, CT ABDOMEN PELVIS W CON, 02/28/2018, 10:47. FINDINGS: Image quality: Diagnostic. ABDOMEN: Lung bases: Lung bases are clear. Heart size is normal. Solid organs: The liver is hypodense when compared to the spleen. No definite liver lesions are evident no intrahepatic or extrahepatic biliary dilatation is evident. The gallbladder is grossly unremarkable. The spleen and pancreas appear unchanged. Prominence of the main pancreatic duct is similar to the prior study. No peripancreatic inflammation or fluid collection is identified. There is mild nodular enlargement of the left adrenal gland with a possible left adrenal nodule measuring up to 9 mm in diameter. This is not well characterized on CT. The kidneys are unremarkable. There is no hydronephrosis. Peritoneum and bowel: The stomach is unremarkable. The small bowel loops are nondilated. The appendix is not clearly seen. There is prominent thickening of the wall of the rectosigmoid colon with moderate edema identified within the adjacent soft tissues and a small amount of free fluid within the pelvis. No definite loculated fluid collection or free air is evident. Nodes and vessels: No retroperitoneal or mesenteric adenopathy. Aorta and inferior vena cava are normal in caliber. Bones: Mild degenerative changes of the mid spine are present. No suspicious osseous lesions or fractures are evident. PELVIS: Genitourinary: Bladder wall thickness is normal. The uterus is heterogeneous and not adequately evaluated. Miscellaneous: No inguinal hernias or adenopathy. Small amount of free fluid is seen within the pelvis. There may be a small developing loculated fluid collection along the posterior wall of the uterus, which does not represent a bowel loop and measures up to approximately 4.8 x 2.0 x 3.9 cm. Bones: No suspicious bony lesions. No acute pelvic fractures are identified. Degenerative changes of the sacroiliac joints are present. IMPRESSION: 1. Sigmoid diverticulitis. 2. Fluid collection containing air along the posterior wall of the uterus is suggestive of a perforated diverticulum and developing abscess. Clinical correlation is recommended. 3. Small amount of free fluid within the pelvis. 4. No bowel obstruction. The 5. Hepatic steatosis. 6. Left adrenal nodule. An MRI is recommended for better characterization. 6. Enlarged main pancreatic duct is similar to the prior study and of doubtful clinical significance. Dictated by: Guero Degroot M.D. on 01/15/2019 at 10:39 MDM Narrative Medical decision making narrative: Dr. rbiones, surgery has been consulted in regards to patient. Concern for acute abdomen with extreme tenderness. He is in the ED to see and evaluate patient agrees patient needs to go to OR. The patient is hemodynamically stable. No leukocytosis normal lactic acid. Waited in the ER until OR was ready. Discharge Plan Departure Patient Disposition: Admitted As Inpatient Clinical Impression: Diverticulitis Discharge Date/Time: 01/15/19 15:11 Interventions: ED Discharge Assessment Last Done: 01/15/19 15:11 Admit Date/Time: 01/15/19 13:21 Admit Provider: Poli Villafana
--- NOTE | 2019-01-15 10:38 | PC.NURSE ---
s/p colonoscopy 5 days ago, developed mid lower abdominal pain radiating to right flank. with burning with urinations. concern for kidney infections.
[2019-01-15 10:41] LABS: Add Manual Diff / Slide Review NO; Basophils Absolute Auto 100 /uL (0-100); Basophils Percent Auto 0.6 % (0-2); Eosinophils Absolute Auto 0 /uL (0-450); Eosinophils Percent Auto 0.2 % (2-4); Hematocrit 44.3 % (36-46); Hemoglobin 15.1 g/dL (12.0-16.0); Lymphocytes Absolute Auto 1500 /uL (1100-4500); Lymphocytes Percent Auto 17.6 % (25-40); Mean Corpuscular HGB Conc 34.2 % (30-36); Mean Corpuscular Hemoglobin 30.2 PG (26-34); Mean Corpuscular Volume 88.5 fL (80-100); Monocytes Absolute Auto 800 /uL (0-900); Monocytes Percent Auto 10.2 % (3-14); Neutrophils Absolute Auto 5900 /uL (1500-7000); Neutrophils Percent Auto 71.4 % (50-75); Platelet Count 219 X10^3/uL (150-400); Red Blood Cell Count 5.01 X10^6/uL (4.0-5.2); Red Cell Distribution Width 12.3 % (11.6-14.8); White Blood Cell Count 8.3 X10^3/uL (4.5-11.0)
[2019-01-15] MEDS: SODIUM CHLORIDE 0.9% 1,000 ML 150 ML IV (10:46)
[2019-01-15] MEDS: HYDROMORPHONE 1 MG INJ 0.5 MG IV (10:46)
[2019-01-15] MEDS: ONDANSETRON 4 MG/2 ML INJ IV (10:47)
[2019-01-15 11:01] LABS: Alanine Aminotransferase 35 IU/L (9-52); Albumin 4.9 g/dL (3.5-5.0); Albumin Globulin Ratio 1.3 (1.0-2.8); Alkaline Phosphatase 71 U/L (38-126); Aspartate Aminotransferase 24 IU/L (14-36); BUN Creatinine Ratio 16.7 (6-22); Blood Urea Nitrogen 10 mg/dL (7-17); Calcium 10.1 mg/dL (8.4-10.2); Carbon Dioxide 25 mmol/L (22-32); Chloride 103 mmol/L (98-107); Estimated Glomerular Filt Rate > 60.0 mL/min (>60); Globulin 3.8 g/dL (1.7-4.1); Glucose 102 mg/dL (70-100); HEMOLYSIS < 15 (0-50); Lipase 116 U/L (23-300); Potassium 4.3 mmol/L (3.4-5.1); Sodium 141 mmol/L (137-145); Total Protein 8.7 g/dL (6.3-8.2)
--- NOTE | 2019-01-15 11:16 | DI.CT.S_ITS ---
PROCEDURE: CT ABDOMEN PELVIS W CON INDICATIONS: severe ab pain mostly right sided colonoscopy 01/10 TECHNIQUE: After the administration of oral and intravenous contrast, 5 mm thick sections acquired from the diaphragms to the symphysis. 5 mm thick coronal and sagittal reformats were performed. For radiation dose reduction, the following was used: automated exposure control, adjustment of mA and/or kV according to patient size. COMPARISON: [facility], CT, CT ABDOMEN PELVIS W CON, 02/28/2018, 10:47. FINDINGS: Image quality: Diagnostic. ABDOMEN: Lung bases: Lung bases are clear. Heart size is normal. Solid organs: The liver is hypodense when compared to the spleen. No definite liver lesions are evident no intrahepatic or extrahepatic biliary dilatation is evident. The gallbladder is grossly unremarkable. The spleen and pancreas appear unchanged. Prominence of the main pancreatic duct is similar to the prior study. No peripancreatic inflammation or fluid collection is identified. There is mild nodular enlargement of the left adrenal gland with a possible left adrenal nodule measuring up to 9 mm in diameter. This is not well characterized on CT. The kidneys are unremarkable. There is no hydronephrosis. Peritoneum and bowel: The stomach is unremarkable. The small bowel loops are nondilated. The appendix is not clearly seen. There is prominent thickening of the wall of the rectosigmoid colon with moderate edema identified within the adjacent soft tissues and a small amount of free fluid within the pelvis. No definite loculated fluid collection or free air is evident. Nodes and vessels: No retroperitoneal or mesenteric adenopathy. Aorta and inferior vena cava are normal in caliber. Bones: Mild degenerative changes of the mid spine are present. No suspicious osseous lesions or fractures are evident. PELVIS: Genitourinary: Bladder wall thickness is normal. The uterus is heterogeneous and not adequately evaluated. Miscellaneous: No inguinal hernias or adenopathy. Small amount of free fluid is seen within the pelvis. There may be a small developing loculated fluid collection along the posterior wall of the uterus, which does not represent a bowel loop and measures up to approximately 4.8 x 2.0 x 3.9 cm. Bones: No suspicious bony lesions. No acute pelvic fractures are identified. Degenerative changes of the sacroiliac joints are present. IMPRESSION: 1. Sigmoid diverticulitis. 2. Fluid collection containing air along the posterior wall of the uterus is suggestive of a perforated diverticulum and developing abscess. Clinical correlation is recommended. 3. Small amount of free fluid within the pelvis. 4. No bowel obstruction. The 5. Hepatic steatosis. 6. Left adrenal nodule. An MRI is recommended for better characterization. 6. Enlarged main pancreatic duct is similar to the prior study and of doubtful clinical significance. Dictated by: Guero Degroot M.D. on 01/15/2019 at 10:39 Approved by: Guero Degroot M.D. on 01/15/2019 at 10:47
[2019-01-15] MEDS: HYDROMORPHONE 1 MG INJ IV (12:47)
[2019-01-15] MEDS: PIPERACILLIN-TAZO 3.375 GM/50 ML FROZ.PIGGY IV (12:47)
--- NOTE | 2019-01-15 13:31 | PM.HP.1 ---
History of Present Illness Date Patient Seen: 01/15/19 Time Patient Seen: 13:33 Chief complaint: lower abdominal pain/to back Narrative: 53-year-old white female patient had a colonoscopy elsewhere 5 days ago. She has felt normal up until a day and a half ago when she developed lower abdominal pain of a moderate nature which became severe last night. She came to the emergency room where she has a CT scan showing free air free fluid stranding of the sigmoid colon and marked diverticulosis of the sigmoid she was actually told after her colonoscopy that she had severe sigmoid diverticulosis. I have spent a good deal of time explaining this condition to the patient and her explaining that she has generalized peritoneal infection peritonitis and that she needs a resection of this perforated segment of colon. With the degree of infection in her peritoneal cavity and contamination then I have recommended a temporary colostomy. She understands and agrees to the procedure. she has received intravenous Zosyn in the emergency department. Patient History Medical History Heart murmur (Acute) Surgical History Hx of appendectomy (Acute) Hx of tubal ligation (Acute) Previous section (Acute) S/P laparoscopic procedure (Resolved ~02/28/18) Family History Mother Diabetes mellitus Social History marital status: household members: spouse occupational status: employed Smoking Status: Never smoker alcohol intake: current substance use type: does not use Family & Social History Family History Mother Diabetes mellitus Social History: household members spouse Safety & Behavioral: Feels Safe in Current Yes Environment Been Physically Hurt or No Threatened By a Person Tobacco & Substance use: Smoking Status Never smoker alcohol intake current alcohol intake frequency a few times a week Substance Use Type does not use Meds Home Medications Medication Instructions Recorded Confirmed Type No Known Home Medications 02/28/18 01/15/19 History Allergies Allergy/AdvReac Type Severity Reaction Status Date / Time No Known Drug Allergies Allergy Verified 12/17/18 09:49 Review of Systems Review of Systems All systems reviewed & are unremarkable except as noted in HPI and below Exam Vital Signs (past 8 hours): - 01/15/19 10:01 01/15/19 10:50 01/15/19 11:02 Temperature 98.8 F Pulse Rate 75 72 65 Respiratory Rate 20 24 17 Blood Pressure 137/71 Blood Pressure [Right Arm] 131/68 116/71 Pulse Oximetry 100 100 96 01/15/19 11:44 01/15/19 12:00 01/15/19 12:34 Temperature Pulse Rate 74 77 75 Respiratory Rate 17 19 18 Blood Pressure Blood Pressure [Right Arm] 119/61 111/60 125/70 Pulse Oximetry 93 97 100 01/15/19 13:21 Temperature Pulse Rate 80 Respiratory Rate 18 Blood Pressure Blood Pressure [Right Arm] Pulse Oximetry 96 Oxygen Delivery Method Room Air Narrative Exam Narrative: Patient is alert and oriented complaining of severe generalized abdominal pain. she has received several doses of Dilaudid and is still experiencing severe pain. Ears nose and throat are unremarkable Lungs are clear with no rales or wheezes Heart regular rhythm no murmur is audible. Abdomen is mildly distended with severe generalized tenderness in all 4 quadrants. There is rebound tenderness in all 4 quadrants. There is no mass palpable. Remaining physical is unremarkable. Objective Labs Result Diagrams: 01/15/19 10:30 01/15/19 10:30 Labs: Laboratory Results - last 24 hr 01/15/19 01/15/19 10:30 10:30 WBC 8.3 RBC 5.01 Hgb 15.1 Hct 44.3 MCV 88.5 MCH 30.2 MCHC 34.2 RDW 12.3 Plt Count 219 Neut % (Auto) 71.4 Lymph % (Auto) 17.6 L [place] % (Auto) 10.2 Eos % (Auto) 0.2 L Baso % (Auto) 0.6 Neut # (Auto) 5900 Lymph # (Auto) 1500 [place] # (Auto) 800 Eos # (Auto) 0 Baso # (Auto) 100 Sodium 141 Potassium 4.3 Chloride 103 Carbon Dioxide 25 BUN 10 Creatinine 0.60 Estimated GFR > 60.0 BUN/Creatinine Ratio 16.7 Glucose 102 H Calcium 10.1 Total Bilirubin 1.0 AST 24 ALT 35 Alkaline Phosphatase 71 Total Protein 8.7 H Albumin 4.9 Globulin 3.8 Albumin/Globulin Ratio 1.3 Lipase 116 Assessment & Plan Assessment & Plan narrative: Patient has perforated sigmoid diverticulitis with generalized peritonitis. There is free fluid and free air. Plan is a Jojo procedure sigmoid colectomy with colostomy. Patient understands this and agrees with no further questions. All questions were answered by bedside consultation.
--- NOTE | 2019-01-15 14:40 | PC.NURSE ---
conversing with spouse at bs. and pt has been on the cell phone, conversing appropriately. waiting for surgical crew.
[2019-01-15] MEDS: LACTATED RINGERS 1,000 ML 42 ML IV ×2 (15:21→17:10)
--- NOTE | 2019-01-15 16:14 | SUR.OPER ---
Supine on padded OR bed, head on pillow, arms secured on padded arm boards at <90 degrees abduction, legs uncrossed, safety belt at thigh, tape over blanket over lower legs.
[2019-01-15] MEDS: SODIUM CHLORIDE IRRIG SOLUTION 1,000 ML, BACITRACIN 50,000 UNIT IRR (16:39)
--- NOTE | 2019-01-15 17:37 | P.OP_ITS ---
Operative Date/Time/Diagnoses Date of procedure: 01/15/19 Time of procedure: 17:30 Pre-op diagnosis: Perforated sigmoid diverticulitis with generalized peritonitis Post-op diagnosis: same Procedure & Clinicians Procedure: Jojo procedure that is sigmoid resection and descending colostomy Same procedure as scheduled: Yes Indications: Perforated sigmoid diverticulitis with peritonitis Surgeon: Poli Villafana Click Yes if Unassisted: Yes Anesthesia Type: General Operative Notes Findings: Patient had easily identifiable perforation of the sigmoid colon secondary to diverticulitis. There was generalized peritonitis. Closure Type: primary Specimen(s): other (Sigmoid colon and peritoneal cultures) Applied: catheter Estimated Blood Loss (mL): 100 Blood products transfused: none Procedure in detail: The patient was properly identified during surgical pause. She was prepped and draped in a sterile fashion exposure the low abdomen. a low midline incision was made. the abdomen explored. Patient had generalized peritonitis with purulence noted throughout the peritoneal cavity. this was irrigated with copious sterile saline and finally with bacitracin saline. cultures were taken prior to the irrigation. The sigmoid colon was plastered against the uterus. It was mobilized with blunt dissection revealing a perforation on the lateral wall of the sigmoid colon. There was a good deal of purulence in the pelvis which was irrigated as well. the sigmoid was mobilized along the white line of [place] laterally in the medial mesenteric leaf peritoneum was divided from healthy sigmoid down to the rectosigmoid junction using the a thick tissue VERONICA stapler the proximal sigmoid was divided. I divided the mesocolon with clamps ligated the vessels with 2 0 Vicryl and there was excellent hemostasis. The rectosigmoid junction was divided with the VERONICA stapler and the sigmoid colon removed. the stump was secure with no leak in the rectosigmoid junction once the specimen was removed then I irrigated very thoroughly the entire abdominal cavity aspirating dry until the aspirate was clear. The mesocolon was intact there was no bleeding. the 10 mm Murali drain was brought in through the right lower quadrant and placed in the depths of the pelvis. This drain was sutured to the skin with fine nylon. his [place] of skin was removed from the left lower quadrant between the anterior superior iliac spine and umbilicus. dissection was carried down through the adipose tissue to the anterior fascia which was divided in a cruciate fashion 2 fingers were then able to be moved into the peritoneal cavity through this stomal site. the descending colon was then brought out through the stoma site for later maturation at the skin. this was tension-free and was very healthy with good blood supply. the wound was then closed by reapproximating the fascia with 1. Vicryl. the subcu was irrigated. the skin loosely stapled to allow for drainage of the wound. the wound was then covered and the colostomy was matured using 3 0 Vicryl interrupted sutures. the mucosa was very healthy. I could easily pass a finger down the colostomy beyond the fascia.. Stomal appliance was applied wound was dressed in sterile fashion she tolerated this procedure very well in a stable fashion. Complications: none Condition: stable Disposition: PACU
[2019-01-15] MEDS: HYDROMORPHONE 2 MG INJ 0.5 MG IV ×4 (17:40→17:55)
[2019-01-15] MEDS: SODIUM CHLORIDE 0.9% 1,000 ML 100 ML IV (19:49)
[2019-01-15] MEDS: GABAPENTIN 300 MG CAPSULE PO (21:16)
--- NOTE | 2019-01-15 22:30 | PC.NURSE ---
Evening Shift Note- Patient arrived to room from PACU at 1840 via bed. Patient drowsy but easily aroused. Patient A&Ox3. Patient able to make needs known to staff. Patient pleasent, calm, and cooperative. Admission questions completed, home medications reviewed, and physical assessment completed. Patient oriented to bed and bed controls, room, bathroom, lights, phone, menu, and call martinez/tv remote. bulky dressing to abdomin c/d/i. shannan drain compressed to suction. limon patent and set to gravity to drain. urine clear and yellow. No complaints of pain or discomfort. No complaints of N/V. Patient tolerating clear liquids without issue. safety measures in place. Bed alarm activated. Call martinez and phone within reach. will continue to monitor.
[2019-01-16] VITALS: O2SAT 98
[2019-01-16] MEDS: PIPERACILLIN-TAZO 3.375 GM/50 ML FROZ.PIGGY IV ×4 (00:47→17:36)
--- NOTE | 2019-01-16 01:37 | PC.NURSE ---
Assorter Note: 0030: Sleeping intermittently. Denies pain at this time. Assisted to turn and reposition. Dressing to abdomen is cdi, with AMMON intact and compressed; small amt serosanguinous drainage in bulb. Stoma is beefy red, and colostomy bag is intact; small amt serosanguinous fluid in bag. IVs in place in lt forearm (with NS infusing at 100cc/hr) and lt AC (sl). SCDs on; pt asking for them to be off: explained purpose of SCDs and pt agreed to keep them on. Vital signs stable.
[2019-01-16 04:00] VITALS: BP 144/81; PULSE 77; RESP 16; TEMP 36.8; O2SAT 97
[2019-01-16] MEDS: HYDROMORPHONE 0.5 MG INJ IV ×5 (04:22→21:29)
[2019-01-16] MEDS: SODIUM CHLORIDE 0.9% 1,000 ML 100 ML IV ×2 (05:42→18:17)
[2019-01-16 06:46] LABS: Add Manual Diff / Slide Review NO; Basophils Absolute Auto 0 /uL (0-100); Eosinophils Absolute Auto 0 /uL (0-450); Hematocrit 39.2 % (36-46); Hemoglobin 13.4 g/dL (12.0-16.0); Lymphocytes Absolute Auto 400 /uL (1100-4500); Lymphocytes Percent Auto 4.6 % (25-40); Mean Corpuscular Hemoglobin 30.4 PG (26-34); Mean Corpuscular Volume 89.3 fL (80-100); Monocytes Absolute Auto 600 /uL (0-900); Neutrophils Absolute Auto 8000 /uL (1500-7000); Neutrophils Percent Auto 88.4 % (50-75); Platelet Count 184 X10^3/uL (150-400); Red Cell Distribution Width 12.7 % (11.6-14.8)
[2019-01-16] MEDS: ONDANSETRON 4 MG/2 ML INJ IV ×3 (07:33→17:56)
[2019-01-16 07:47] VITALS: O2SAT 95
[2019-01-16] MEDS: GABAPENTIN 300 MG CAPSULE PO (08:52)
[2019-01-16 09:00] VITALS: BP 144/94; PULSE 87; RESP 16; TEMP 36.7; O2SAT 97
--- NOTE | 2019-01-16 11:08 | P.PN_ITS ---
Subjective Date Patient Seen: 01/16/19 Time Patient Seen: 11:04 Interval history: Recovering from surgery yesterday Significant amount of pain Has not yet mobilized No output yet an ostomy appliance Exam Vital Signs (past 8 hours): - 01/16/19 04:00 01/16/19 07:47 01/16/19 09:00 Temperature 98.2 F 98.1 F Pulse Rate 77 87 Respiratory Rate 16 16 Blood Pressure 144/81 H 144/94 H Pulse Oximetry 97 95 97 Oxygen Delivery Method Room Air Oxygen Flow Rate 0 Narrative Exam Narrative: Appears uncomfortable but well Breathing comfortably on room air Regular rate and rhythm strong radial pulse Abdomen is distended, dressings dry, ostomy dark pink -no areas black or purple, tympanic to percussion. Tender to palpation throughout Drain with mostly sanguinous output-low volume -milked not plugged. Periphery warm Gong in place draining clear yellow urine Objective Labs Result Diagrams: 01/16/19 06:15 01/15/19 10:30 Labs: Laboratory Results - last 24 hr 01/15/19 01/16/19 10:30 06:15 WBC 9.0 RBC 4.40 Hgb 13.4 Hct 39.2 MCV 89.3 MCH 30.4 MCHC 34.0 RDW 12.7 Plt Count 184 Neut % (Auto) 88.4 H Lymph % (Auto) 4.6 L Sumter % (Auto) 7.0 Eos % (Auto) 0.0 L Baso % (Auto) 0.0 Neut # (Auto) 8000 H Lymph # (Auto) 400 L Sumter # (Auto) 600 Eos # (Auto) 0 Baso # (Auto) 0 Sodium 141 Potassium 4.3 Chloride 103 Carbon Dioxide 25 BUN 10 Creatinine 0.60 Estimated GFR > 60.0 BUN/Creatinine Ratio 16.7 Glucose 102 H Calcium 10.1 Total Bilirubin 1.0 AST 24 ALT 35 Alkaline Phosphatase 71 Total Protein 8.7 H Albumin 4.9 Globulin 3.8 Albumin/Globulin Ratio 1.3 Lipase 116 Assessment & Plan Assessment & Plan narrative: 53-year-old woman postop day 1. Status post exploratory laparotomy and Jojo's colectomy for perforated diverticulitis - now doing reasonably well. White blood cell count this morning is 9. She continues to have significant tenderness Plan: Multi motile pain control with scheduled acetaminophen, gabapentin, methocarbamol, celecoxib, opiates for breakthrough pain Continue the pip/isak Starting probiotic Follow-up potassium and magnesium levels today Good urine output, decreasing IVF On enoxaparin for DVT prophylaxis Needs to mobilize Quality VTE Deep Vein Thrombosis/Pulmonary Embolism Present on Admission: No
[2019-01-16] MEDS: ACETAMINOPHEN 325 MG TABLET 650 MG PO ×2 (11:41→17:45)
[2019-01-16] MEDS: LACTOBACILLUS ACIDOPHILUS TABLET 1 EACH PO ×2 (11:42→17:46)
[2019-01-16] MEDS: METHOCARBAMOL 500 MG TABLET 750 MG PO ×2 (11:42→17:46)
[2019-01-16] MEDS: KETOROLAC 15 MG/ML VIAL IV ×2 (11:45→18:43)
[2019-01-16 12:56] LABS: Blood Urea Nitrogen 8 mg/dL (7-17); Calcium 9.2 mg/dL (8.4-10.2); Carbon Dioxide 24 mmol/L (22-32); Chloride 107 mmol/L (98-107); Estimated Glomerular Filt Rate > 60.0 mL/min (>60); Glucose 129 mg/dL (70-100); HEMOLYSIS 17 (0-50); Magnesium 2.1 mg/dL (1.6-2.3); Potassium 4.4 mmol/L (3.4-5.1); Sodium 140 mmol/L (137-145)
[2019-01-16 15:00] VITALS: O2SAT 96
--- NOTE | 2019-01-16 15:36 | CM.DANOTE ---
Discharge Planning/Care Management DCP: assessment: initiated. Case received this morning and discussed in Team Rounds. EMR is now reviewed. Pt is a 53 year old female who admitted yesterday with abdominal pain. Dx: perforated diverticulitus with peritonitis. Admitted to care of Surgeon: Dr. Villafana. Surgery: 01/15 1730: sigmoid resection with colostomy/temporary. IV antibiotics. P: check in with pt tomorrow for introduction of self and role. DCP team will be following as pt recovers for d/c issues and options. Anticipate the [facility] ostomy specialist/RN Rosemarie Henderson will be consulted when appropriate. CM Discharge Assessment Start: 01/16/19 15:34 Freq: Status: Active Protocol: Document 01/16/19 15:35 ITV (Rec: 01/16/19 15:36 ITV [id number]) Discharge Planning Assessment Advance Directives? No History Provided By Medical Record Prior Living Arrangements House Household Members spouse Independent with ADL's Yes Is patient alert and oriented? Yes Review Status In Process
[2019-01-16] MEDS: METOCLOPRAMIDE 10 MG/2 ML INJ 5 MG IV (19:11)
[2019-01-16] MEDS: SODIUM CHLORIDE 0.9% FLUSH 10 ML IV (21:42)
[2019-01-16 23:00] VITALS: BP 129/71; PULSE 76; RESP 16; TEMP 36.8; O2SAT 98
[2019-01-17] VITALS (9 sets, daily range): BP systolic 137–149; BP diastolic 79–97; PULSE 70–90; RESP 16; TEMP 36.4–37; O2SAT 96–98
[2019-01-17] MEDS: PIPERACILLIN-TAZO 3.375 GM/50 ML FROZ.PIGGY IV ×4 (00:21→17:23)
[2019-01-17] MEDS: HYDROMORPHONE 0.5 MG INJ IV ×4 (01:10→20:28)
[2019-01-17 06:44] LABS: BUN Creatinine Ratio 18.3 (6-22); Blood Urea Nitrogen 11 mg/dL (7-17); Carbon Dioxide 26 mmol/L (22-32); Chloride 104 mmol/L (98-107); Estimated Glomerular Filt Rate > 60.0 mL/min (>60); Glucose 110 mg/dL (70-100); HEMOLYSIS < 15 (0-50); Potassium 4.4 mmol/L (3.4-5.1); Sodium 140 mmol/L (137-145)
[2019-01-17] MEDS: SODIUM CHLORIDE 0.9% 1,000 ML 100 ML IV ×2 (08:07→18:59)
[2019-01-17] MEDS: ONDANSETRON 4 MG/2 ML INJ 8 MG IV ×2 (10:19→17:25)
[2019-01-17] MEDS: KETOROLAC 15 MG/ML VIAL IV (10:21)
[2019-01-17] MEDS: ENOXAPARIN 40 MG/0.4 ML SYRINGE SUBCUT (10:24)
[2019-01-17] MEDS: LACTOBACILLUS ACIDOPHILUS TABLET 1 EACH PO ×3 (10:25→17:22)
[2019-01-17] MEDS: METHOCARBAMOL 500 MG TABLET 750 MG PO ×4 (10:30→20:21)
[2019-01-17] MEDS: CELECOXIB 100 MG CAPSULE PO ×2 (10:30→20:20)
[2019-01-17] MEDS: POLYETHYLENE GLYCOL 3350 17 GM POWD.PACK PO ×2 (10:31→20:22)
[2019-01-17] MEDS: ACETAMINOPHEN 325 MG TABLET 650 MG PO ×2 (10:31→17:23)
[2019-01-17] MEDS: SODIUM CHLORIDE 0.9% FLUSH 10 ML IV (10:32)
--- NOTE | 2019-01-17 11:20 | P.PN_ITS ---
Subjective Date Patient Seen: 01/17/19 Time Patient Seen: 11:22 Interval history: Doing reasonably well after surgery Up to chair yesterday Pain significantly improved now on multi-modal therapy No ostomy output yet gas or stool burping, reports intermittent hiccups Exam Vital Signs (past 8 hours): - 01/17/19 05:38 01/17/19 08:00 01/17/19 08:44 Temperature 98.6 F 98.6 F Pulse Rate 76 75 Respiratory Rate 16 16 Blood Pressure 141/85 H 137/97 H Pulse Oximetry 96 96 97 Oxygen Delivery Method Room Air Oxygen Flow Rate 0 Narrative Exam Narrative: Well-appearing, no acute distress Generally comfortable Breathing comfortably on room air Regular rate and rhythm Abdomen distended, dressings removed, wounds clean dry and intact. Ostomy pain, no contents beyond minimal amount of sweat and back. AMMON drain now with serous output Objective Labs Result Diagrams: 01/16/19 06:15 01/17/19 06:08 Labs: Laboratory Results - last 24 hr 01/16/19 01/17/19 06:50 06:08 Sodium 140 140 Potassium 4.4 4.4 Chloride 107 104 Carbon Dioxide 24 26 BUN 8 11 Creatinine 0.50 L 0.60 Estimated GFR > 60.0 > 60.0 BUN/Creatinine Ratio 16.0 18.3 Glucose 129 H 110 H Calcium 9.2 9.0 Magnesium 2.1 2.0 Assessment & Plan Assessment & Plan narrative: 53-year-old woman postop day 2. Status post exploratory laparotomy and Jojo's colectomy for perforated diverticulitis - now some degree of ileus given intermittent hiccups, burping, absence of stomal output. She is not markedly uncomfortable and as a consequence will hold off on nasogastric tube. If patient however does develop persistent nausea not well treated or ongoing emesis NG tube needs to be placed. Plan: Multi motile pain control with scheduled acetaminophen, gabapentin, methocarbamol, celecoxib, opiates for breakthrough pain Continue the pip/isak and probiotic remove limon catheter On enoxaparin for DVT prophylaxis Needs to mobilize Electrolytes OK Quality VTE Deep Vein Thrombosis/Pulmonary Embolism Present on Admission: No
[2019-01-17] MEDS: GABAPENTIN 300 MG CAPSULE 900 MG PO (20:20)
[2019-01-17] MEDS: PROCHLORPERAZINE 10 MG/2 ML VIAL 5 MG IV (20:23)
[2019-01-18] VITALS (7 sets, daily range): BP systolic 130–144; BP diastolic 72–89; PULSE 75–93; RESP 16–20; TEMP 36.7–37; O2SAT 95–98
[2019-01-18] MEDS: PIPERACILLIN-TAZO 3.375 GM/50 ML FROZ.PIGGY IV ×4 (00:41→17:29)
[2019-01-18] MEDS: PROCHLORPERAZINE 10 MG/2 ML VIAL 5 MG IV (02:40)
[2019-01-18] MEDS: HYDROMORPHONE 0.5 MG INJ IV (02:40)
--- NOTE | 2019-01-18 05:33 | PC.NURSE ---
Patient has steffany MC. CDI. Using BSC. No nausea, pain better controlled.
[2019-01-18 05:38] LABS: Blood Urea Nitrogen 12 mg/dL (7-17); Calcium 8.4 mg/dL (8.4-10.2); Carbon Dioxide 24 mmol/L (22-32); Chloride 107 mmol/L (98-107); Estimated Glomerular Filt Rate > 60.0 mL/min (>60); Glucose 95 mg/dL (70-100); HEMOLYSIS < 15 (0-50); Magnesium 1.9 mg/dL (1.6-2.3); Potassium 4.1 mmol/L (3.4-5.1); Sodium 139 mmol/L (137-145)
[2019-01-18] MEDS: ACETAMINOPHEN 325 MG TABLET 650 MG PO ×3 (06:19→17:29)
--- NOTE | 2019-01-18 10:34 | P.PN_ITS ---
Subjective Date Patient Seen: 01/18/19 Time Patient Seen: 10:31 Interval history: Feeling well Pain control Up and ambulating now in hallway Gas output in the ostomy appliance Minimal belching, hiccups resolved Exam Vital Signs (past 8 hours): - 01/18/19 06:29 01/18/19 07:50 Temperature 98.6 F 98.1 F Pulse Rate 93 H 79 Respiratory Rate 16 16 Blood Pressure 136/81 131/76 Pulse Oximetry 95 96 Oxygen Delivery Method Room Air Oxygen Flow Rate 0 Narrative Exam Narrative: Well-appearing no acute distress Breathing comfortably on room air Regular rate and rhythm Abdomen is less distended, still tympanic, wounds are clean dry and intact. Drain with serous output. Ostomy pink. The ostomy appliance now has gas within it no significant fluid yet. Periphery warm well perfused Objective Labs Result Diagrams: 01/16/19 06:15 01/18/19 05:20 Labs: Laboratory Results - last 24 hr 01/18/19 05:20 Sodium 139 Potassium 4.1 Chloride 107 Carbon Dioxide 24 BUN 12 Creatinine 0.50 L Estimated GFR > 60.0 BUN/Creatinine Ratio 24.0 H Glucose 95 Calcium 8.4 Magnesium 1.9 Assessment & Plan Assessment & Plan narrative: 53F POD3 s/p exploratory laparotomy and Jojo's colectomy for perforated diverticulitis - ileus now resolving with early bowel function as evidence by less distention and gas in appliance. Plan: Ok for clears Multi motile pain control with scheduled acetaminophen, gabapentin, metho carbamol, celecoxib, opiates for breakthrough pain Continue the pip/isak and probiotic On enoxaparin for DVT prophylaxis continue to mobilize today Repleteing Mag Quality VTE Deep Vein Thrombosis/Pulmonary Embolism Present on Admission: No
[2019-01-18] MEDS: MAGNESIUM SULFATE 2 GM/50 ML PIGGYBACK IV (11:04)
[2019-01-18] MEDS: POLYETHYLENE GLYCOL 3350 17 GM POWD.PACK PO ×2 (11:05→20:57)
[2019-01-18] MEDS: ENOXAPARIN 40 MG/0.4 ML SYRINGE SUBCUT (11:05)
[2019-01-18] MEDS: LACTOBACILLUS ACIDOPHILUS TABLET 1 EACH PO ×3 (11:05→17:30)
[2019-01-18] MEDS: METHOCARBAMOL 500 MG TABLET 750 MG PO ×4 (11:05→20:56)
[2019-01-18] MEDS: SIMETHICONE 80 MG TABLET PO (11:08)
[2019-01-18] MEDS: CELECOXIB 100 MG CAPSULE PO ×2 (11:08→20:55)
[2019-01-18] MEDS: SODIUM CHLORIDE 0.9% FLUSH 10 ML IV (11:08)
--- NOTE | 2019-01-18 15:15 | CM.DPC ---
DCP Cont: Met with patient, introduced self and role. Patient alert, laying in bed, continuing on clear liquid diet. Placed name of this community planner and phone extension on white board in room. Let her know that care management is available to offer resources, such as home health. She was appreciative of information. Encouraged her to contact this child welfare caseworker with any questions. P: DCP to continue to follow closely and be available to help facilitate any resources that patient may need before discharge. Has supportive at home. Kyra Hale RN/Facsimile Operator
--- NOTE | 2019-01-18 16:18 | PC.NURSE ---
PATIENT IS UP AMBULATING IN HALLS WITH HER ,STEADY ON FEET.4X4 ADDED UNDER AMMON INSERT SITE FOR SMALL AMOUNT OF DRAINAGE
--- NOTE | 2019-01-18 16:27 | PC.NURSE ---
Started ostomy teaching, given printed material and went over how to open and close pouch. Pt is receptive to teaching, ostomy is temp and she will be back in 3 months to have it taken down (according to pt) She has been up several times amb in the hallway with spouse. No use of dilaudid on this shift, she thinks it maybe contributing to mckayla of the nausea she has. Shower taken. Cont w/poc.
[2019-01-18] MEDS: SODIUM CHLORIDE 0.9% 1,000 ML 100 ML IV (16:50)
[2019-01-18] MEDS: GABAPENTIN 300 MG CAPSULE 900 MG PO (20:55)
[2019-01-19] VITALS (11 sets, daily range): BP systolic 124–148; BP diastolic 75–98; PULSE 74–83; RESP 16–20; TEMP 36.5–37.3; O2SAT 96–100
[2019-01-19] MEDS: PIPERACILLIN-TAZO 3.375 GM/50 ML FROZ.PIGGY IV ×5 (00:19→23:37)
--- NOTE | 2019-01-19 01:02 | PC.NURSE ---
2300- Pt lying in bed w/ midline incision [employer]--she is POD#3 sigmoid resection and descending colostomy. Temp colostomy making output at this time; AMMON drain in place. Stoma looks appropriate. Pt denies pain, stable on RA, NS running as ordered. Passing flatus, on a clear diet, moving SBA to bathroom and hallway. 0000- IV Abx hung as ordered. Pt is refusing to wear her SED's through the night. 0445- Entered pt's room for check and she stated her colostomy felt full. When assessed it was too full and the adhesive aspect was coming undone. Pt was covered in 'stool' on her stomach. Colostomy bag changed, site assessed, and she is asking to shower. 0515- Pt in shower w/ nurse present in room. States she feels stable, IV covered and saline locked at this time.
[2019-01-19] MEDS: ACETAMINOPHEN 325 MG TABLET 650 MG PO ×4 (05:59→23:36)
[2019-01-19] MEDS: SODIUM CHLORIDE 0.9% 1,000 ML 100 ML IV (06:04)
[2019-01-19] MEDS: METHOCARBAMOL 500 MG TABLET 750 MG PO ×4 (10:04→22:20)
[2019-01-19] MEDS: ENOXAPARIN 40 MG/0.4 ML SYRINGE SUBCUT (10:04)
[2019-01-19] MEDS: POLYETHYLENE GLYCOL 3350 17 GM POWD.PACK PO ×2 (10:05→22:22)
[2019-01-19] MEDS: CELECOXIB 100 MG CAPSULE PO ×2 (10:05→22:21)
[2019-01-19] MEDS: LACTOBACILLUS ACIDOPHILUS TABLET 1 EACH PO ×3 (10:07→17:30)
--- NOTE | 2019-01-19 10:20 | PM.PN.1 ---
Subjective Date Patient Seen: 01/19/19 Time Patient Seen: 10:20 Interval history: well this am now with output from colostomy Feeling well with minimal pain Showering, ambulating. Exam Vital Signs (past 8 hours): - 01/19/19 05:00 01/19/19 08:00 Temperature 99.2 F 99.2 F Pulse Rate 83 75 Respiratory Rate 16 16 Blood Pressure 138/81 124/77 Pulse Oximetry 97 98 Oxygen Delivery Method Room Air Oxygen Flow Rate 0 Narrative Exam Narrative: well appering On RA breathing comfortably RRR abd with reduced distention wound CDI Drain serrous Ostomy pink with stool and gas in appliance Objective Labs Result Diagrams: 01/16/19 06:15 01/18/19 05:20 Assessment & Plan Assessment & Plan narrative: 53F POD4 s/p exploratory laparotomy and Jojo's colectomy for perforated diverticulitis - now with good bowel function, good pain control, nearing discharge. Plan: Advance to low res diet Multi motile pain control with scheduled acetaminophen, gabapentin, methocarbamol, celecoxib, opiates for breakthrough pain Continue the pip/isak and probiotic On enoxaparin for DVT prophylaxis continue to mobilize today Needs ostomy consult sunday Likely discharge home sunday Quality VTE Deep Vein Thrombosis/Pulmonary Embolism Present on Admission: No
[2019-01-19] MEDS: SODIUM CHLORIDE 0.9% FLUSH 10 ML IV ×2 (10:24→22:20)
--- NOTE | 2019-01-19 15:29 | PC.NURSE ---
MOLDER HAND/OSTOMY NOTE: THIS RN WAS ASKED TO COME ASSESS PATIENT'S OSTOMY APPLIANCE, WHICH WAS LEAKING DISTALLY. PATIENT HAS DARK BROWN EFFLUENT TO COLLECTION BAG, AND THE DISTAL END IS WET AND NO LONGER ADHERED PROPERLY. REMOVED OLD APPLIANCE WITH UNISOLVE, CLEANSED THOROUGHLY WITH WATER AND WASHCLOTH. STOMA IS BEEFY RED, SUTURES INTACT. NO ERYTHEMA OR SKIN BREAKDOWN. ABD DISTENDED. APPLIED SKIN PREP, ALLOWED TO DRY. APPLIED STOMA PASTE TO WAFER DISTAL EDGE. APPLIED WAFER AND TEACHING ABOUT MOLD AND HOLD TECHNIQUE FOR AT LEAST 5-10 MIN. PATIENT ABLE TO DO THIS. AND NEW APPLIANCE IS CDI.
[2019-01-19] MEDS: GABAPENTIN 300 MG CAPSULE 900 MG PO (22:21)
[2019-01-20 04:30] VITALS: BP 131/77; PULSE 77; RESP 16; TEMP 37; O2SAT 98
[2019-01-20] MEDS: ACETAMINOPHEN 325 MG TABLET 650 MG PO ×3 (06:15→16:39)
[2019-01-20] MEDS: PIPERACILLIN-TAZO 3.375 GM/50 ML FROZ.PIGGY IV ×2 (06:15→11:24)
[2019-01-20 07:25] VITALS: BP 140/76; PULSE 70; RESP 15; TEMP 37.1; O2SAT 98
[2019-01-20 08:03] VITALS: O2SAT 97
[2019-01-20] MEDS: LACTOBACILLUS ACIDOPHILUS TABLET 1 EACH PO ×3 (08:59→16:39)
[2019-01-20] MEDS: CELECOXIB 100 MG CAPSULE PO (09:01)
[2019-01-20] MEDS: POLYETHYLENE GLYCOL 3350 17 GM POWD.PACK PO (09:01)
[2019-01-20] MEDS: METHOCARBAMOL 500 MG TABLET 750 MG PO ×3 (09:01→16:38)
[2019-01-20] MEDS: SODIUM CHLORIDE 0.9% FLUSH 10 ML IV (09:07)
[2019-01-20 11:05] VITALS: BP 124/71; PULSE 79; RESP 16; TEMP 37.2; O2SAT 97
--- NOTE | 2019-01-20 13:48 | PM.DS.1 ---
History of Present Illness Date Patient Seen: 01/20/19 Time Patient Seen: 13:48 Chief complaint: lower abdominal pain/to back Narrative: 53-year-old white female patient had a colonoscopy elsewhere 5 days ago. She has felt normal up until a day and a half ago when she developed lower abdominal pain of a moderate nature which became severe last night. She came to the emergency room where she has a CT scan showing free air free fluid stranding of the sigmoid colon and marked diverticulosis of the sigmoid she was actually told after her colonoscopy that she had severe sigmoid diverticulosis. I have spent a good deal of time explaining this condition to the patient and her explaining that she has generalized peritoneal infection peritonitis and that she needs a resection of this perforated segment of colon. With the degree of infection in her peritoneal cavity and contamination then I have recommended a temporary colostomy. She understands and agrees to the procedure. she has received intravenous Zosyn in the emergency department. Discharge Providers Date of admission: 01/15/19 13:21 Discharge Date: 01/20/19 Primary care physician: CRISTIANE Reyna Consults: 01/15/19 18:50 Consult to Discharge Planning Routine Comment: colostomy care and teaching 01/19/19 10:24 Consult to Ostomy Specialist Routine Comment: New temporary end colostomy after hartmans Consulting Provider: Discharge provider: Jared Carolina Summary Discharge Diagnosis: Perforated diverticulitis with purulent peritonitis Ileus after surgery Hospital Course: 53-year-old female presents with perforated diverticulitis and generalized peritonitis she was taken to the operating room and underwent emergent Jojo's colectomy with temporary end colostomy on the left side. Postoperatively she did reasonably well. She developed a postoperative ileus but did not require NG tube placement -she was managed by NPO an antiemetics. She slowly regained bowel function on multimodal therapy for pain control and overall did well. Her ostomy had no resume all output. Her AMMON drain turned serous without any purulence. By postoperative day 5 she was ambulating independently without difficulty, her pain was well managed without IV medications, she was tolerating a general diet though eating small portion, there is plan is for later today to work with ostomy to connector with supplies and further education. She can discharge after this occurs Status at Discharge Cognitive/behavioral status at discharge: oriented Functional status at discharge: independent ambulation Overall status at discharge: patient is progressing back to baseline Time Spent with Patient Less than 30 minutes Exam Vital Signs (past 8 hours): - 01/20/19 07:25 01/20/19 08:03 01/20/19 11:05 Temperature 98.8 F 98.9 F Pulse Rate 70 79 Respiratory Rate 15 16 Blood Pressure 140/76 124/71 Pulse Oximetry 98 97 97 Oxygen Delivery Method Room Air Oxygen Flow Rate 0 Objective Labs Result Diagrams: 01/16/19 06:15 01/18/19 05:20 Discharge Plan Discharge Plan Patient Disposition: Home Discharge Med Rec/Prescriptions Prescriptions: New methocarbamol 500 mg Tablet 750 mg PO QID Qty: 20 RF: 0 acetaminophen 325 mg Tablet 650 mg PO Q6HR Qty: 35 RF: 0 polyethylene glycol 3350 17 gram Powder In Packet 17 gm PO DAILY Qty: 20 RF: 0 gabapentin [Neurontin] 300 mg Capsule 900 mg PO BEDTIME Qty: 10 RF: 0 Bacid (L. acidophilus) 1 billion cell- 250 mg Tablet 1 ea PO TIDWM Qty: 60 RF: 0 amoxicillin-pot clavulanate 500-125 mg tablet 1 tab PO TID Qty: 6 RF: 0 oxycodone 5 mg tablet 5 mg PO Q4-6H PRN (Reason: pain) Qty: 7 RF: 0 Follow up/Referrals: Ophelia Mckee ARNP [Primary Care Provider] - Jared Carolina MD [Physician] - (call for follow up appt in about 10 days) Provider Discharge Instructions Diet: Diet as Tolerated Activity: General activity Okay, okay to shower tomorrow morning. No lifting over 15 lb for 6 weeks. No bathing -i.e. putting her wound underwater for an additional 10 days Skin/Wound/Dressing Care Report to your healthcare provider any signs of infection, such as:: chills, fever and increased pain Visit Report/Discharge Packet Instructions: Colectomy -- Open Surgery, DI for Colectomy, Colostomy / Ileostomy Discharge Data Primary Care Provider: Ophelia Mckee Attending Provider: Poli Villafana Admit Date/Time: 01/15/19 13:21 Quality VTE Deep Vein Thrombosis/Pulmonary Embolism Present on Admission: No
--- NOTE | 2019-01-20 14:45 | CM.DPC ---
Addendum entered by Asia Koch LPN 01/21/19 14:41: Followed up as planned with pt this morning after review of Rosemarie Henderson' Nurse Note: 01/21 1832 which outlines plan for pt to follow at the wound clinic and with Rosemarie to discuss need for referral to the wound care center. Pt noted that she was having some trouble with the ostomy appliance leaking and she was expecting a call from Rosemarie today to let her know the plan for followup. Left message at Wound Care clinic with Olimpia re this and she planned to alert Rosemarie to same. Original Note: DCP: continued: case received and discussed in Team Rounds. RN coordinator Roro Nassar noted that the ostomy nurse Rosemarie Gaffneyas from Wound Care clinic was expected to see pt sometime today. EMR review of Pt Notes showed that Rosemarie had not yet seen pt during her stay thus far. Called the [facility]ound Care Clinic and spoke with Olimpia. She stated that Dr. Carolina had just called the clinic about 20 minutes ago to request the consultation and that Rosemarie had a full caseload at clinic today but would be over later after clinic hours. She agreed to let Rosemarie know that this DCPlanner would look at her notes tomorrow and would followup on anything pt might need for followup. Met then with pt to discuss the d/c order and plan. Pt noted that she knew that the surgeon had ok'd her for home today and wondered when to expect Rosemarie. She stated that she can hardly see the ostomy as her abdomen is still so swollen and my will no be of help. He has to leave the room everytime the nurse takes care of the ostomy. She says I have had a couple of huge blowouts as the covering does not seem to fit very well yet. She does say she is eager to meet with Rosemarie. She has no idea what supplies will be needed, how to get them and how to use them at this point. Explained that sometimes Rosemarie has HH RN partner with pt and with her on the teaching and the supplies, other times she advises that the patient follow up directly with the wound care center. Agreed to check in tomorrow morning and follow up with her after review of Rosemarie's plan. If pt does go home this evening will plan to call her tomorrow to follow up. Discussed all this with TO Nassar and then with TO Yu. Stanislaw notes that if pt is not ready to d/c home after this initial teach the rocio RN can followup to get the d/c cancelled. P: follow up as per above. Pt to go home when a safe and appropriate d/c plan is in place which will include her ability to manage her new ostomy care.
[2019-01-20 16:00] VITALS: BP 143/79; PULSE 69; RESP 18; TEMP 37.3; O2SAT 99
--- NOTE | 2019-01-20 16:48 | PC.NURSE ---
Addendum entered by Carmina Singh R.N. 01/20/19 19:07: Rosemarie labor crew supervisor in room to do ostomy teaching. In room for approx 1 hour, patient reports that she is ready to go home. She emptied own colostomy bag independently, then got dressed. All belongings and DC paperwork gathered, she got into wheelchair, I then wheeled her down to ER entrance where her S.O. met us, patient left hospital in private van, all belongings & DC paperwork sent with her. Original Note: DC note: Berta dozing, arouses to voice, Ox3 and situation. Appears in good spirits. All DC paperwork, instructions & RX's reviewed with her. All RX hard copies given to patient, patient given rx list with last doses written on form. Nurse DC teaching complete, we are now waiting for Nurse from [facility] to see patient and do further ostomy teaching, bring supplies for home, etc. Patient has no IV access as they were DC'd previously today. Berta denies any pain, abdomen soft. Ostomy/colostomy site CDI, passing liquid stool.
--- NOTE | 2019-01-20 18:32 | PC.NURSE ---
Wound Ostomy Nurse Consult Note Berta in bed with her at her side. She is ready to go home. I gave her the [facility] New Patient Guide and [facility] appliance guide which we reviewed. I changed her appliance. Her stoma is beefy red, moist and measures 38mm oval with sutures present. It is budded about .5cm above her abdomen. There is a slight cease on the right side and the previous appliance leaked but did not damage her skin. Berta and her watched me change the appliance and asked appropriate questions as I explained everything I was doing. I then had Berta practice applying an appliance to the model which she did well. I reviewed the crusting technique with then as well as the accessory products. I would like to have Berta come to the W[facility] Care Center for further teaching and observation of her stoma as I feel her stoma may end up retracting a bit and I want to make sure we prevent effluent leakage. I will speak to the surgical team for a referral.
== END 2019-01-20 19:00 | disposition home or self-care (01) | DRG 221 ==
LOC: ED 12:36 → AC 13:22
PROVIDERS: Surgery; Admitting Provider Surgery; Emergency Provider Emergency Medicine; PCP Nurse Practitioner Family; Visit Provider Surgery
PROC: 0DTN0ZZ Resection of Sigmoid Colon, Open Approach (ICD-10-PCS; CPT 44140; principal; 2019-01-15 15:45)
DX: K57.20 Diverticulitis of large intestine with perforation and abscess without bleeding (principal); K56.7 Ileus, unspecified
CPT/HCPCS: 36415; 36591; 44143; 74177; 80048; 80053; 81003; 82962; 83690; 83735; 85025; 87070; 87075; 87077; 87186; 87205; 94762; 96361; 96365; 96375; 96376; 99222; 99284; 99285; J0330; J0780; J1100; J1170; J1650; J1885; J2250; J2405; J2543; J2704; J2765; J3010; Q9967

== ENCOUNTER → 2019-02-07 11:57 | Outpatient (CLI) | payer OTHER, MEDICAID, SELFPAY ==
[2019-01-15 13:32] VITALS: BMI 30.2
== END ==
PROVIDERS: PCP Nurse Practitioner Family; Visit Provider Family Medicine
DX: Z46.89 Encounter for fitting and adjustment of other specified devices (principal)
CPT/HCPCS: 99213

== ENCOUNTER → 2019-02-20 13:05 | Outpatient (CLI) | payer OTHER, MEDICAID, SELFPAY ==
[2019-01-15 13:32] VITALS: BMI 30.2
== END ==
PROVIDERS: PCP Nurse Practitioner Family; Visit Provider Family Medicine
DX: Z43.4 Encounter for attention to other artificial openings of digestive tract (principal)
CPT/HCPCS: 99212

== ENCOUNTER → 2019-03-06 15:02 | Outpatient (CLI) | payer OTHER, MEDICAID, SELFPAY ==
[2019-01-15 13:32] VITALS: BMI 30.2
== END ==
PROVIDERS: PCP Nurse Practitioner Family; Visit Provider Family Medicine
DX: Z43.3 Encounter for attention to colostomy (principal)
CPT/HCPCS: 99212

== ENCOUNTER → 2019-03-27 15:12 | Outpatient (CLI) | payer OTHER, MEDICAID, SELFPAY ==
[2019-01-15 13:32] VITALS: BMI 30.2
== END ==
PROVIDERS: PCP Nurse Practitioner Family; Visit Provider Family Medicine
DX: Z43.4 Encounter for attention to other artificial openings of digestive tract (principal)
CPT/HCPCS: 99212

== ENCOUNTER 2019-04-23 08:07 | Inpatient (IN) | payer OTHER, MEDICAID, SELFPAY ==
[2019-01-15 13:32] VITALS: BMI 30.2
[2019-04-09 09:57] VITALS: BMI 28.3
[2019-04-23] VITALS (24 sets, daily range): BP systolic 100–164; BP diastolic 42–88; PULSE 67–91; RESP 11–18; TEMP 36.1–37.4; O2SAT 91–99; BMI 28.3
--- NOTE | 2019-04-23 | PATH_ITS ---
[facility] Accession Number: [id number] . 01 Material submitted: . colon - LEFT DESCENDING SIGMOID COLON . 02 Diagnosis: Left Descending Sigmoid Colon, Colostomy Closure with Colorectal Anastomosis: Consistent with stoma. No evidence of neoplasm. MRV 04/28/2019 1326 Local . 02 Electronically signed: . Stewart Posey MD, PhD, Pathologist NPI- [id number] . 01 Gross description: . Received in formalin, labeled left descending sigmoid colon, is an unoriented segment of colon (length-2.0 cm, distal diameter-2.2 cm) connected to a stoma with a tyson-denny smooth shiny rim of skin (up to 1.3 cm in depth). The proximal resection margin is received stapled. The mucosa is denny smooth shiny with normal folds. No nodules, masses or lesions are identified. The resection margins are inked black. Soccer Referee longitudinal sections with margins are submitted in cassettes A1-A3. ([id number]) /MRV 04/25/2019 1438 Local . 02 Pathologist provided ICD-10: Z43.3, Z93.3 . 02 CPT . 753391 Performed at: 01 [facility] [address], [place], [place] [id number] MD Barron Snell MD Phone: [phone] Performed at: [address] [facility] [address] [place], [place] [id number] MD Vickie Jimenez MD Phone: [phone]
[2019-04-23] MEDS: LACTATED RINGERS 1,000 ML 42 ML IV (08:59)
--- NOTE | 2019-04-23 09:00 | PM.HP.1 ---
History of Present Illness History of Present Illness Date Patient Seen: 04/23/19 Time Patient Seen: 09:01 Chief complaint: [id number] Narrative: 53-year-old white female patient who I 1st met on January 15, 2019. At that time she was in the emergency room with a perforated sigmoid colon secondary to acute diverticulitis. She had generalized peritonitis. She was taken to the operating room underwent sigmoid resection Jojo procedure with an end descending colostomy. She has done well. She is now in for takedown of the colostomy with a colo colonic anastomosis or colorectal anastomosis. She understands the nature of the procedure very well. She is not had any abdominal pain or signs of sepsis since January. She has had a bowel prep including erythromycin neomycin with some rectal enemas as well. Prior abdominal surgery includes a section and appendectomy. Patient History Medical History Colostomy in place (Acute 01/15/19) Diverticulosis (Acute) Heart murmur (Acute) Surgical History Hx of appendectomy (Acute ~1979) Hx of tubal ligation (Acute ~2002) Previous section (Acute ~1982) S/P laparoscopic procedure (Resolved ~02/28/18) Family History Mother Diabetes mellitus Social History marital status: household members: spouse occupational status: employed Smoking Status: Never smoker alcohol intake: current substance use type: does not use Family & Social History Family History Mother Diabetes mellitus Social History: household members spouse Prior Living Arrangements House Safety & Behavioral: Feels Safe in Current Yes Environment Been Physically Hurt or No Threatened By a Person Suicidal Ideation Description None Suicide Plan Description No Plan Tobacco & Substance use: Smoking Status Never smoker alcohol intake current alcohol intake frequency holiday/special occasion Substance Use Type does not use Meds Home Medications and Allergies Home Medications Medication Instructions Recorded Confirmed Type L.acidoph-L.bulg-B.bif-S.therm 1 ea PO TIDWM #60 tab 01/20/19 04/09/19 Rx [Bacid (L. acidophilus)] multivitamin 1 cap PO DAILY 04/09/19 04/09/19 History Allergies Allergy/AdvReac Type Severity Reaction Status Date / Time No Known Drug Allergies Allergy Verified 02/04/19 11:02 Review of Systems Review of Systems ROS Unobtainable: All systems reviewed & are unremarkable except as noted in HPI and below Exam Vital Signs (past 8 hours): - 04/23/19 08:20 Temperature 98.4 F Pulse Rate 90 Respiratory Rate 18 Blood Pressure 132/83 Pulse Oximetry 99 Oxygen Delivery Method Room Air Narrative Exam Narrative: Patient is alert and oriented has no complaints. Ears nose and throat are normal. Neck no adenopathy. Lungs are clear with no rales or wheezes Heart regular rhythm patient has a history of murmur I do not hear a murmur. Abdomen is soft nontender left lower quadrant and descending colostomy is healthy. Lower extremities reveal numerous flea bites which are not infected. Neurologic is normal. Remaining physical unremarkable. Assessment & Plan Assessment & Plan narrative: Patient is here for takedown of her colostomy which was done for perforated sigmoid diverticulitis 3 months ago. She understands the nature of the procedure agrees and has no unanswered questions.
[2019-04-23] MEDS: CEFTRIAXONE 2 GM/50 ML FROZ.PIGGY IV (10:35)
--- NOTE | 2019-04-23 10:54 | SUR.OPER ---
Supine on padded OR bed, head on pillow, arms secured on padded arm boards at <90 degrees abduction, legs uncrossed, safety belt at thigh, tape over blanket over lower legs.
[2019-04-23] MEDS: SODIUM CHLORIDE IRRIG SOLUTION 1,000 ML, BACITRACIN 50,000 UNIT IRR (11:18)
--- NOTE | 2019-04-23 12:29 | SUR.OPER ---
antibiotic ointment used in dressing
[2019-04-23] MEDS: HYDROMORPHONE 2 MG INJ 0.5 MG IV ×8 (12:41→13:50)
--- NOTE | 2019-04-23 12:44 | PM.OP.1 ---
Operative Date/Time/Diagnoses Date of procedure: 04/23/19 Time of procedure: 12:44
--- NOTE | 2019-04-23 12:46 | PM.OP.1 ---
Operative Date/Time/Diagnoses Date of procedure: 04/23/19 Time of procedure: 12:46 Pre-op diagnosis: History of perforated sigmoid diverticulitis status post Jojo procedure. Post-op diagnosis: same Procedure & Clinicians Procedure: Exploratory laparotomy closure of colostomy with a colorectal anastomosis Same procedure as scheduled: Yes Indications: History of Jojo procedure closure of colostomy Surgeon: Poli Muñoz Yes if Unassisted: Yes Anesthesia Type: General Operative Notes Closure Type: primary Specimen(s): other (Segment of sigmoid colon) Applied: catheter Estimated Blood Loss (mL): 100 Blood products transfused: none Procedure in detail: The patient was properly identified during surgical pause. She was given a general endotracheal anesthetic prepped and draped in a sterile fashion exposure of the abdomen. the colostomy itself was covered with Vi-Drape. Midline incision was made excising with that the cutaneous scar from prior laparotomy. Abdomen explored. There were only moderate pelvic adhesions which were easily lysed. This exposed the rectum at the pelvic brim. I mobilized the rectum incising the peritoneum and then bluntly elevating the rectum to facilitate the anastomosis. using an elliptical incision I incised the skin around the colostomy and using sharp and blunt dissection delivered the colostomy stoma into the peritoneal cavity. the distal few inches of sigmoid colon were resected over a VERONICA staple line. there was good hemostasis. gentle mobilization of the descending colon then allowed for a tension-free pelvic anastomosis to be created. this was a side to side functional end to end colorectal anastomosis. the colon and rectum were joined with several silk sutures side to side and then enterotomies made in the rectum and side of the colon and using a VERONICA stapler a [id number] anastomosis was created. this is a Lovell anastomosis. the anastomosis was reinforced with several interrupted silks at either end. The enterotomies required for the insertion of the stapler were closed with a TA 60 staple line which was also reinforced with interrupted silks. This was a patulous anastomosis and there was no sign of bleeding. pelvis is irrigated with 2 L of bacitracin containing saline aspirated dry. There was no sign of any bleeding. the stoma site fascia was closed from the inside with running 1. Vicryl. then the anterior abdominal wall was closed at the stoma site with 0 Vicryl in subcu find Vicryl and finally stapled the stoma site was irrigated with copious saline prior to closure. the midline fascia was closed with 1. PDS. The subcu was irrigated the skin was stapled. Procedures very well tolerated.
--- NOTE | 2019-04-23 12:56 | SUR.PHASEI ---
Report given to Caryn ARIZA
[2019-04-23] MEDS: LORazepam 2 MG/ML INJ 0.25 MG IV ×2 (13:05→13:23)
--- NOTE | 2019-04-23 13:08 | SUR.PHASEI ---
IV meds given. Pt rated pain 8/10, resting quietly w/griimace and hands clenched. Abd dressing remains CDI.
[2019-04-23] MEDS: hydrOXYzine 50 MG/ML INJ 25 MG IM (13:32)
--- NOTE | 2019-04-23 13:33 | SUR.PHASEI ---
Hand off to Alyssa Nath RN
--- NOTE | 2019-04-23 14:13 | SUR.PHASEI ---
patient states she feels much better and resting comfortable. States her pain is about a 3. pt in SR and blood pressure is stable. dressing to abdomen is dry and intact.
[2019-04-23] MEDS: SODIUM CHLORIDE 0.9% 1,000 ML 100 ML IV (14:43)
[2019-04-23] MEDS: KETOROLAC 30 MG/ML VIAL IV ×2 (15:33→21:59)
--- NOTE | 2019-04-23 15:35 | PC.NURSE ---
Day Shift- Report rec'd from TO Mccloud in PACU at 1319. Pt had just rec'd pain meds again and plan on bringing pt up to unit around 1400. Pt arrived on unit into room 227 at 1426 via bed. VSS, afenrile, O2 sat 98% on 2L NC. Pt drowsy and arousable with verbal and light touch. Pt's Bert at bedside. Oriented to call light, post op routines. Pt reports 1/10 dull aching to abd, abd bulky gauze dressing CDI. BT are hypoactive X4 quadrants. Denies nausea. Pt given ice chips, instructed to intake slowly. HOB elevated.
--- NOTE | 2019-04-23 22:04 | PC.NURSE ---
A&OX3. 94%RA. pt tolerated clear liquid diet. denied n/v. pt got out bed once, 1PA. BTX4 hypo. abdominal dressing cdi. low urine output 175cc, cloudy meghna color. call light in reach. bed alarm active.
--- NOTE | 2019-04-23 22:13 | PC.NURSE ---
A&OX3. 94%RA. pt tolerated liquid diet. btx4 hypo. pt got out bed once, 1PA. abdominal dressing cdi. limon 300cc out, cloudy and meghan color. call light in reach. bed alarm active.
[2019-04-24] VITALS (8 sets, daily range): BP systolic 94–124; BP diastolic 46–72; PULSE 63–75; RESP 16; TEMP 36.6–37.7; O2SAT 98–100
[2019-04-24] MEDS: SODIUM CHLORIDE 0.9% 1,000 ML 100 ML IV (00:31)
--- NOTE | 2019-04-24 00:39 | PC.NURSE ---
Addendum entered by Sandra Pascual R.N. 04/24/19 06:06: Slept most of shift. States pain this morning is 5/10 and feels like a pressure. Medicated with scheduled Toradol and reinforced that also has Dilaudid ordered if Toradol not effective. UOP 750cc. BP low at 94/46 but is asymptomatic. Original Note: Patient is alert and oriented. Breath sounds CTA with RA sat of 98%. HRR. Denies nausea. BT present but patient denies flatus as yet. Abdomen mildly distended and tender. Indwelling catheter is patent; urine is clear meghan. Able to turn self in bed. Denies pain. Dangled on evening shift but has not yet been up walking. Wearing bilateral calf SCD's. Low grade temp at 99.8; discussed importance of CDB. Fall risk score is low.
[2019-04-24] MEDS: KETOROLAC 30 MG/ML VIAL IV ×3 (05:26→21:33)
[2019-04-24] MEDS: ENOXAPARIN 40 MG/0.4 ML SYRINGE SUBCUT (08:49)
--- NOTE | 2019-04-24 09:09 | PM.PN.1 ---
Subjective Subjective Date Patient Seen: 04/24/19 Time Patient Seen: 09:11 Interval history: Patient is 1 day postop colo rectal anastomosis for revision of a Jojo procedure. Subjectively she has minimal discomfort no nausea vomiting. She is tolerating a clear liquid diet. Exam Vital Signs (past 8 hours): - 04/24/19 05:37 04/24/19 07:30 04/24/19 08:00 Temperature 98.5 F 98.3 F Pulse Rate 71 63 Respiratory Rate 16 16 Blood Pressure 94/46 L 105/58 L Pulse Oximetry 98 98 98 Oxygen Delivery Method Room Air Oxygen Flow Rate 0 Narrative Exam Narrative: Patient is afebrile with minimal discomfort sitting up in bed. Abdomen is not distended is fairly soft with expected amount of incisional discomfort. Dressings are dry and intact. Assessment & Plan Assessment & Plan narrative: Plan is discontinue her Gong catheter today. Advance her diet to full liquids. She is ambulating. She is on Lovenox for DVT prophylaxis. Changed her IV from saline to dextrose half-normal saline with small amount of potassium. Started Zantac simethicone Neurontin. Quality VTE Deep Vein Thrombosis/Pulmonary Embolism Present on Admission: No
[2019-04-24] MEDS: DEXTROSE 5%-0.45NS W/KCL 20MEQ 1,000 ML 84 MEQ IV ×2 (09:49→21:50)
[2019-04-24] MEDS: GABAPENTIN 300 MG CAPSULE PO ×2 (09:53→21:33)
[2019-04-24] MEDS: SIMETHICONE 80 MG TABLET PO ×2 (12:37→21:32)
--- NOTE | 2019-04-24 14:08 | CM.DANOTE ---
Discharge Planning/Care Management DCP: assessment: case received, EMR reviewed. Met now with pt and introduced self and role. Am familiar with pt from her last admission to January 2019. Pt is a 53 year old female who admitted yesterday for a planned surgical procedure that included a take-down of the colostomy that was part of the operation pt had in January. Surgeon: Dr. Villafana. Payer: [facility]/Medicaid PCP: Ophelia Mckee Pt is found in bed, groggy on post op day one. She has orders to advance today from clears to full liquids and is encouraged to ambulate. P: at this point anticipate pt will d/c to home setting when stable for same and with return of her GI function. DCP team will be following prn for any d/c needs that may arise. CM Discharge Assessment Start: 04/24/19 14:06 Freq: Status: Active Protocol: Document 04/24/19 14:07 ITV (Rec: 04/24/19 14:08 ITV [id number]) Discharge Planning Assessment Advance Directives? No History Provided By Patient,Medical Record Has Patient been admitted in last 30 No days? Prior Living Arrangements House Household Members spouse Independent with ADL's Yes Is patient alert and oriented? Yes Whiteboard Updated in Patient Room with Yes name and ext. # of Pipe Cleaner Review Status In Process Pre-Anesthesia Assessment Start: 04/09/19 09:57 Freq: Status: Complete Protocol: Document 04/09/19 09:57 CAB (Rec: 04/09/19 10:12 CAB [id number]) Pre-Anesthesia Assessment Patient Also Known As [place] (AKA) Patient Information Reviewed Via Phone Assessment Assessment Completed With Patient Primary Care Provider Ophelia Mckee Seen Specialist in Last 12 Months Yes Specialist Seen Emergency,General surgeon Primary Language Singaporean Preferred Language Singaporean Director Of Parks And Recreation Required No Height 152.4 cm Weight 65.771 kg Body Mass Index (BMI) 28.3 Hearing Ability Normal Visual Impairment No Limitations Visual Assist None Dentition Type Teeth, Natural Present Other Aids No Hx Anesthesia Reactions No Hx Family Anesthesia Reaction No Hx Malignant Hyperthermia No Hx Blood Transfusions No Hx Blood Transfusion Reaction No Anesthesia Review Requested No Regrinder Operator No alcohol intake current alcohol intake frequency holidays/special occasions only Smoking Status Never smoker Substance Use Type does not use Pain Present Pain Reported Musculoskeletal Symptoms Joint Pain History of Falling (Recent or History of No ) Patient is completely paralyzed or No completely immobile Mental Status Oriented to own ability Is patient on oxygen? No Does patient have DESHPANDE/SOB No Hx Sleep Apnea No CPAP/BIPAP use not prescribed Currently Taking a Beta Divya No Can You Climb a Flight of Stairs Without Yes SOB Hx Chest Pain No Hx SOB No Hx Syncope or Dizziness No Anti-Coagulant Therapy No Has a Signal Maintenance Technician No Cardiac Testing No Hx Pacemaker/ICD No Pacemaker Rep Required? No Cardiac Clearance Received Not Applicable Diet Type At Home Regular,Other dysphagia No Comment Avoiding skins, seeds Urinary Catheter Present No Hx Urinary Self Catheterization No Diabetes No Patient No Lactating No Hx Drug Resistant Organism No Presence of External or Internal Medical No Devices Have you traveled outside the [facility] in the last 30 days? Marital Status Lives With spouse Prior Living Arrangements House Number of Floors (Floors) One Floor Support System Spouse Does the Patient Have Assistance After Yes Surgery Patient Discharge Plan Description Return Home Comment Pt advised 3 day length of stay per surgeon Feels Safe in Current Environment Yes Been Physically Hurt or Threatened By a No Person in Current Environment Do you have thoughts of harming yourself None or others? Are you currently considering suicide? No Do you have a plan to hurt yourself or No Plan others? Do You Have Any Spiritual Beliefs That No May Affect Your HC Choices? Do You Have Any Cultural Practices That No May Affect Your HC Choices? Spiritual Referral Orthodoxy clergy/[employer] support employee visit Comment Orthodoxy Who Can We Speak to About Patient's Care Family, friends Identifying Code for Release of Patient Declines to issue Information Health Care Proxy/Next of Kin Bert () Health Care Proxy Emergency Contact Name Bert () Emergency Contact Advance Directives? No: Declines further information Power of Electrologist No PAC Instructions Medications to take/avoid,No ETOH/petroleum product on skin DOS,NPO,Post-op transportation,Pre-surgical wash,Sturdy shoes/comfortable clothes,Do not bring valuables and remove jewelry Comment Bowel prep per Surgeon
--- NOTE | 2019-04-24 15:24 | PC.NURSE ---
Day Shift- Pt ambulated OOB X2 with SBA, pt using walker. Pt ambulated for 1 lap then 2nd time walking was 2 laps around [facility], [place], operated by [facility]. Pt passed 1 small amount of flatus this afternoon. Abd slightly distended and pt states feeling slightly bloated, Abd tender at times. BSX4, denies nausea.
[2019-04-25] VITALS (9 sets, daily range): BP systolic 118–156; BP diastolic 69–82; PULSE 67–77; RESP 16–19; TEMP 36.2–37.4; O2SAT 96–100
--- NOTE | 2019-04-25 00:47 | PC.NURSE ---
Addendum entered by Sandra Pascual R.N. 04/25/19 05:47: Up to bathroom this morning and used walker with SBA. Had 250cc brown liquid stool; guaiac negative. Afebrile this morning. States pain minimal at 2/10; medicated with scheduled Toradol. Original Note: Patient is alert and oriented. Breath sounds diminished but CTA with RA sat of 97% and temp is 99.4. Discussed importance of CDB and use of incentive spirometry to prevent post op complications; verbalizes understanding and is using pillow to splint with coughing. Denies nausea. BT present and states she is passing flatus; reportedly had loose, bloody stools on previous shift. Denies dysuria, frequency or urgency with urination since catheter removed yesterday. Noted to have pinpoint scabbed spots bilateral LE; patient states they are flea bites. Had SCD's off but now agreeable to having them put back on. Denies pain at present time. Fall risk score is low.
[2019-04-25] MEDS: KETOROLAC 30 MG/ML VIAL IV ×3 (05:40→21:12)
--- NOTE | 2019-04-25 08:09 | PC.NURSE ---
Addendum entered by Jovita Carrero R.N. 04/25/19 11:42: Pt tolerating full liquid diet for breakfast. Changed to general diet starting at lunch. Encouraged to go slowly with intake. Flame Hardener in to see pt around 1140. Pt had soft loose BM around 1130, voiding qs. Original Note: Day Shift- Pt states 1/10 soreness across abd, bloating, tender intermittently, reminded of abd splinting with DB&C. IS use volume to 1000, enc frequent use and plan to ambulate in halls goal of 4 times today. AE diminished to bases bilaterally, denies shortness of breath. Abd bulky gauze dressing CDI. BSX4, passing flatus, pt had small loose brown BM this AM at shift change. Pt refused calf SCD's, reminded of ankle pump exercises and ambulation to prevent blood clots. Pt also refused daily Enoxaparin injection, also explained importance of medication, encouraged above also. Pt ambulating in room indep without issue, low fall risk, may ambulate in halls with her .
[2019-04-25 08:14] LABS: Add Manual Diff / Slide Review NO; Basophils Absolute Auto 0 /uL (0-100); Basophils Percent Auto 0.6 % (0-2); Eosinophils Absolute Auto 100 /uL (0-450); Eosinophils Percent Auto 1.6 % (2-4); Hematocrit 33.6 % (36-46); Hemoglobin 11.3 g/dL (12.0-16.0); Lymphocytes Absolute Auto 1500 /uL (1100-4500); Lymphocytes Percent Auto 23.2 % (25-40); Mean Corpuscular HGB Conc 33.4 % (30-36); Mean Corpuscular Hemoglobin 30.1 PG (26-34); Mean Corpuscular Volume 89.9 fL (80-100); Monocytes Absolute Auto 700 /uL (0-900); Monocytes Percent Auto 10.2 % (3-14); Neutrophils Absolute Auto 4200 /uL (1500-7000); Neutrophils Percent Auto 64.4 % (50-75); Platelet Count 142 X10^3/uL (150-400); Red Blood Cell Count 3.74 X10^6/uL (4.0-5.2); Red Cell Distribution Width 13.6 % (11.6-14.8); White Blood Cell Count 6.5 X10^3/uL (4.5-11.0)
[2019-04-25 08:31] LABS: Blood Urea Nitrogen 6 mg/dL (7-17); Calcium 8.6 mg/dL (8.4-10.2); Carbon Dioxide 26 mmol/L (22-32); Chloride 110 mmol/L (98-107); Estimated Glomerular Filt Rate > 60.0 mL/min (>60); Glucose 95 mg/dL (70-100); HEMOLYSIS < 15 (0-50); Potassium 3.9 mmol/L (3.4-5.1); Sodium 140 mmol/L (137-145)
[2019-04-25] MEDS: GABAPENTIN 300 MG CAPSULE PO ×2 (08:37→21:11)
[2019-04-25] MEDS: SIMETHICONE 80 MG TABLET PO ×4 (08:38→21:11)
--- NOTE | 2019-04-25 09:47 | P.PN_ITS ---
Subjective Subjective Date Patient Seen: 04/25/19 Time Patient Seen: 09:47 Interval history: Patient is now 2 days postop colorectal anastomosis closure of a colostomy done for a Jojo procedure reversal. Subjectively she feels very well with minimal abdominal pain no nausea vomiting she has had 3 bowel movements and is passing flatus. Exam Vital Signs (past 8 hours): - 04/25/19 05:00 04/25/19 08:00 04/25/19 08:37 Temperature 97.2 F L 97.3 F L Pulse Rate 76 67 Respiratory Rate 16 16 Blood Pressure 147/80 H 130/74 Pulse Oximetry 96 100 100 Oxygen Delivery Method Room Air Oxygen Flow Rate 0 Narrative Exam Narrative: Patient is afebrile abdomen mildly distended incision is healing well with no sign of infection in either the stoma site or midline incision. M inimal abdominal tenderness. Objective Labs Result Diagrams: 04/25/19 07:50 04/25/19 07:50 Labs: Laboratory Results - last 24 hr 04/25/19 04/25/19 07:50 07:50 WBC 6.5 RBC 3.74 L Hgb 11.3 L Hct 33.6 L MCV 89.9 MCH 30.1 MCHC 33.4 RDW 13.6 Plt Count 142 L Neut % (Auto) 64.4 Lymph % (Auto) 23.2 L [place] % (Auto) 10.2 Eos % (Auto) 1.6 L Baso % (Auto) 0.6 Neut # (Auto) 4200 Lymph # (Auto) 1500 [place] # (Auto) 700 Eos # (Auto) 100 Baso # (Auto) 0 Sodium 140 Potassium 3.9 Chloride 110 H Carbon Dioxide 26 BUN 6 L Creatinine 0.50 L Estimated GFR > 60.0 BUN/Creatinine Ratio 12.0 Glucose 95 Calcium 8.6 Assessment & Plan Assessment & Plan narrative: Patient is recovering very well following a colorectal anastomosis takedown of her colostomy. She I will advance her diet to solid food today since she is having bowel movements and passing flatus and tolerating a full liquid diet with no nausea or vomiting. She is out of bed walking she will shower today she is still getting Lovenox for DVT prophylaxis. Quality VTE Deep Vein Thrombosis/Pulmonary Embolism Present on Admission: No
--- NOTE | 2019-04-25 11:59 | DIET.PN ---
Dietary Progress Note Assessment: 53y F s/p colostomy reversal 3mo after perforated sigmoid colon secondary to acute diverticulitis. HT: 152.4cm WT: 69.4kg BMI: 29.[address] met c pt and spouse to answer any questions on nutrition per d/c. Pt has made positive diet changes since January, learned spouse at risk for DM2 so reducing amount of processed foods, reducing total CHO, sugar, heavy foods, and drinking more water. Pt likes to cook Ecuadorean food. Pt was up, ambulating and looked well. Reinforced pt to go slow c food intake, lilia fiber for the next week or so, advancing as tolerated.
[2019-04-25] MEDS: SODIUM CHLORIDE 0.9% FLUSH 10 ML IV ×2 (13:13→21:12)
[2019-04-26] VITALS (9 sets, daily range): BP systolic 112–137; BP diastolic 63–83; PULSE 67–75; RESP 16–20; TEMP 36.4–37.4; O2SAT 95–100
[2019-04-26] MEDS: GABAPENTIN 300 MG CAPSULE PO ×2 (09:05→20:29)
[2019-04-26] MEDS: SIMETHICONE 80 MG TABLET PO ×4 (09:06→20:29)
[2019-04-26] MEDS: SODIUM CHLORIDE 0.9% FLUSH 10 ML IV ×2 (09:06→20:29)
--- NOTE | 2019-04-26 09:48 | PC.NURSE ---
Addendum entered by Ella Dozier R.N. 04/26/19 13:25: PAIN/MS - after ambul hallway, states pain 4 on scale 0/10, did sanjana lunch, soup, crackers, yogurt, given 600mg po ibuprofen. Addendum entered by Ella Dozier R.N. 04/26/19 12:37: PAIN - discussed pain mgt and given 650mg po tylenol for abd discomfort 4 on scale 0/10. Original Note: AM NOTE - pt is up to chair prior to breakfast, states abd discomfort, tenderness 3-4/10, declined earlier toradol and declines narcotic at this time, bt are active, passing flatus and has had a bm, abd slightly distended, barrier dsg cdi, declines lovenox, rationale explained, pt states she is freq mobilizing, using IS to 1500.
--- NOTE | 2019-04-26 10:22 | PM.PN.1 ---
Subjective Subjective Date Patient Seen: 04/26/19 Time Patient Seen: 10:22 Interval history: Day 3 postop colorectal anastomosis for takedown of a Jojo procedure. Patient is experiencing liquid stools and flatus. No nausea vomiting. Tolerating a solid diet. Ambulating well. Exam Vital Signs (past 8 hours): - 04/26/19 05:30 04/26/19 08:00 04/26/19 09:00 Temperature 98.1 F 97.5 F L Pulse Rate 69 69 Respiratory Rate 18 16 Blood Pressure 136/83 131/78 Pulse Oximetry 100 95 99 Oxygen Delivery Method Room Air Oxygen Flow Rate 0 Narrative Exam Narrative: Abdomen is less distended. Minimal abdominal tenderness. She has remained afebrile. Incisions are healing without sign of infection. Objective Labs Result Diagrams: 04/25/19 07:50 04/25/19 07:50 Assessment & Plan Assessment & Plan narrative: Patient is recovering nicely following and colorectal anastomosis takedown of her colostomy. She has return of GI function. I will observe for 1 more day planned discharge tomorrow. Quality VTE Deep Vein Thrombosis/Pulmonary Embolism Present on Admission: No
[2019-04-26] MEDS: ACETAMINOPHEN 325 MG TABLET 650 MG PO (11:40)
--- NOTE | 2019-04-26 12:20 | CM.DPC ---
DCP Cont: Met with patient and spouse in room. Introduced self and role. Patient was sitting up in bed, had just eaten. Confirmed that she resides here in [place] with her , Bert. She is anxious to go home. Patient is to be here another day to ensure that she can tolerate food before discharge. P: DCP to continue to follow. She could be discharged home tomorrow if deemed medically stable. Kyra Hale RN/Foamite Mixer
[2019-04-26] MEDS: IBUPROFEN 600 MG TABLET PO (13:23)
[2019-04-27 00:19] VITALS: BP 136/76; PULSE 70; RESP 16; TEMP 36.4; O2SAT 99
[2019-04-27] MEDS: ACETAMINOPHEN 325 MG TABLET 650 MG PO (07:42)
[2019-04-27] MEDS: SIMETHICONE 80 MG TABLET PO (07:43)
[2019-04-27] MEDS: GABAPENTIN 300 MG CAPSULE PO (07:43)
[2019-04-27] MEDS: SODIUM CHLORIDE 0.9% FLUSH 10 ML IV (07:44)
--- NOTE | 2019-04-27 07:49 | PM.DS.1 ---
History of Present Illness History of Present Illness Chief complaint: [id number] Narrative: 53-year-old white female patient who I 1st met on January 15, 2019. At that time she was in the emergency room with a perforated sigmoid colon secondary to acute diverticulitis. She had generalized peritonitis. She was taken to the operating room underwent sigmoid resection Jojo procedure with an end descending colostomy. She has done well. She is now in for takedown of the colostomy with a colo colonic anastomosis or colorectal anastomosis. She understands the nature of the procedure very well. She is not had any abdominal pain or signs of sepsis since January. She has had a bowel prep including erythromycin neomycin with some rectal enemas as well. Prior abdominal surgery includes a section and appendectomy. Discharge Providers Provider Date of admission: 04/23/19 08:07 Discharge Date: 04/27/19 Primary care physician: CRISTIANE Reyna Discharge provider: Poli Villafana MD Summary Hospital Course Discharge Diagnosis: Status post Jojo procedure closure of colostomy with a colorectal anastomosis Hospital Course: Patient is entering postop day 4 following takedown of her colostomy 3 months ago. She underwent segmental resection of just the stoma and a colorectal anastomosis on this admission 4 days ago. She feels well is requiring no narcotics no nausea vomiting is having normal bowel movements incisions are healing beautifully with no sign of infection. She is discharged on a regular diet she will return next week in the clinic for staple removal. No heavy lifting 6 weeks normal bathing. Status at Discharge Cognitive/behavioral status at discharge: oriented Functional status at discharge: independent ambulation Overall status at discharge: patient is back to baseline Time Spent with Patient Time spent: Less than 30 minutes Exam Vital Signs (past 8 hours): - 04/26/19 23:50 04/27/19 00:19 Temperature 97.5 F L Pulse Rate 70 Respiratory Rate 16 Blood Pressure 136/76 Pulse Oximetry 99 99 Oxygen Delivery Method Room Air Oxygen Flow Rate 0 Objective Labs Result Diagrams: 04/25/19 07:50 04/25/19 07:50 Discharge Plan Discharge Plan Patient Disposition: Home Discharge Med Rec/Prescriptions Prescriptions: Continued Bacid 1 billion cell- 250 mg Tablet 1 ea PO TIDWM Qty: 60 RF: 0 multivitamin Capsule 1 cap PO DAILY RF: 0 Follow up/Referrals: Ophelia Mckee ARNP [Primary Care Provider] - Provider Discharge Instructions Diet: Diet as Tolerated Activity: no heavy lifting 6 weeks Skin/Wound/Dressing Care Skin care: bathe normally Report to your healthcare provider any signs of infection, such as:: chills, fever, night sweats, increased pain, unusual drainage and unusual redness Dressing: as needed Visit Report/Discharge Packet Instructions: How to Prevent Falls, DI for Postoperative Pain, DI for Colostomy or Ileostomy Reversal, [facility]: Wound Care Discharge Data Primary Care Provider: Ophelia Mckee VTE Deep Vein Thrombosis/Pulmonary Embolism Present on Admission: No
[2019-04-27 08:00] VITALS: BP 134/74; PULSE 65; RESP 16; TEMP 36.5; O2SAT 100; O2SAT 95
[2019-04-27] MEDS: IBUPROFEN 600 MG TABLET PO (08:43)
--- NOTE | 2019-04-27 09:54 | PC.NURSE ---
Addendum entered by Ella Dozier R.N. 04/27/19 11:11: DC - when spouse arrived, reviewed dc instructions, no scripts, saline lock dc'd, belongings gathered, including cell phone, head charger, glasses, clothing, black bag, given telfa and paper tape to change dsg prn. Tsf to wc and escorted to car by campaign coordinator. Original Note: AM NOTE - pt is alert, states abd incisional discomfort 4 on scale 0/10, given 650mg po tylenol before breakfast and after sanjana meal, given 400mg po ibuprofen, Dr. Villafana in this am and barrier dsg was removed, midline stapled incision intact, l mid quadrant steffany intact, no redness or drainage, replaced with telfa, pt will dc home today, after medication, ambulation hallway independently, gait steady.
== END 2019-04-27 11:21 | disposition home or self-care (01) | DRG 221 ==
PROVIDERS: Admitting Provider Surgery; PCP Nurse Practitioner Family; Visit Provider Surgery
PROC: 0DBN0ZZ Excision of Sigmoid Colon, Open Approach (ICD-10-PCS; CPT 44140; principal; 2019-04-23 09:45)
DX: Z43.3 Encounter for attention to colostomy (principal); K57.32 Diverticulitis of large intestine without perforation or abscess without bleeding
CPT/HCPCS: 36415; 80048; 85025; 94762; J0696; J1100; J1170; J1650; J1885; J2060; J2250; J2405; J2704; J3010; J3410

== ENCOUNTER → 2019-09-24 10:39 | Outpatient (ROUT) | payer OTHER, MEDICAID, SELFPAY ==
[2019-04-23 14:44] VITALS: BMI 28.3
[2019-09-24 11:12] LABS: Influenza A - CEPHEID Flu A POSITIVE (NEGATIVE); Influenza B - CEPHEID Flu B NEGATIVE (NEGATIVE)
== END ==
PROVIDERS: PCP Nurse Practitioner Family; Visit Provider Internal Medicine
DX: R05 Cough (principal)
CPT/HCPCS: 87502

== ENCOUNTER → 2019-12-26 09:59 | Outpatient (CLI) | payer OTHER, MEDICAID, SELFPAY ==
[2019-04-23 14:44] VITALS: BMI 28.3
[2019-12-26 11:09] LABS: Alanine Aminotransferase 96 IU/L (<35); Albumin 4.6 g/dL (3.5-5.0); Albumin Globulin Ratio 1.3 (1.0-2.8); Alkaline Phosphatase 58 U/L (38-126); Aspartate Aminotransferase 73 IU/L (14-36); BUN Creatinine Ratio 22.6 (6-22); Bilirubin Total 0.5 mg/dL (0.2-1.3); Blood Urea Nitrogen 12 mg/dL (7-17); Calcium 9.5 mg/dL (8.4-10.2); Carbon Dioxide 27 mmol/L (22-32); Chloride 106 mmol/L (98-107); Cholesterol 253 mg/dL (140-199); Estimated Glomerular Filt Rate > 60.0 mL/min (>60); Globulin 3.5 g/dL (1.7-4.1); Glucose 102 mg/dL (70-100); HDL Cholesterol 43 mg/dL (40-60); HEMOLYSIS < 15 (0-50); LDL Cholesterol Calculated 168 mg/dL (<100); Potassium 4.3 mmol/L (3.4-5.1); Sodium 141 mmol/L (137-145); Total Protein 8.1 g/dL (6.3-8.2); Triglycerides 210 mg/dL (35-150)
== END ==
PROVIDERS: PCP Nurse Practitioner Family; Referring Provider Internal Medicine; Visit Provider Internal Medicine
DX: E78.2 Mixed hyperlipidemia (principal)
CPT/HCPCS: 36415; 80053; 80061

== ENCOUNTER → 2020-03-26 08:35 | Outpatient (CLI) | payer OTHER, MEDICAID, SELFPAY ==
[2019-04-23 14:44] VITALS: BMI 28.3
--- NOTE | 2020-03-26 08:38 | DI.CT.S_ITS ---
PROCEDURE: CT ABDOMEN PELVIS WO CON INDICATIONS: complex ventral hernia; need for surgical planning TECHNIQUE: Noncontrast 5 mm thick sections acquired from the diaphragms to the symphysis. 5 mm coronal and sagittal reformats were then performed. For radiation dose reduction, the following was used: automated exposure control, adjustment of mA and/or kV according to patient size. COMPARISON: [facility], US, US ABDOMEN LIMITED, 11/15/2018, 10:09. [facility], CT, CT ABDOMEN PELVIS W CON, 02/28/2018, 10:47. [facility], CT, CT ABDOMEN PELVIS W CON, 01/15/2019, 11:19. FINDINGS: Image quality: Excellent. ABDOMEN: Lung bases: Lung bases are clear. Heart size is normal. Solid organs: Liver is normal in size. Focal fatty infiltration involves the left attic lobe, both the medial and lateral segments Gallbladder appears normal. Pancreas is normal in contours. Spleen is normal in size. No adrenal nodules. Kidneys are normal in size, without hydronephrosis or nephrolithiasis. Peritoneum and bowel: Unenhanced bowel loops demonstrate normal wall thickness and caliber. No free fluid or air. Nodes and vessels: No retroperitoneal or mesenteric adenopathy by size criteria. Aorta and inferior vena cava are normal in caliber. Miscellaneous: Note is made of a ventral hernia located j immediately adjacent to the umbilicus, containing colon. There is no sign of incarceration or strangulation. This is best seen centered on series 2, image 44. . PELVIS: Genitourinary: Bladder wall thickness is normal. Miscellaneous: No inguinal hernias or adenopathy. Prior partial sigmoid colectomy. This was performed in the area of prior acute diverticulitis. No operative complication seen at the operative bed. Bones: No suspicious bony lesions. No vertebral body compression fractures. IMPRESSION: Colon containing ventral periumbilical hernia, without evidence of incarceration or strangulation. Expected postsurgical change at the operative bed after partial sigmoidectomy in this patient with prior acute sigmoid diverticulitis. Dictated by: Mikey Nath M.D. on 03/26/2020 at 10:42 Approved by: Mikey Nath M.D. on 03/26/2020 at 10:51
== END ==
PROVIDERS: PCP Internal Medicine; Referring Provider Internal Medicine; Visit Provider Surgery
DX: K43.9 Ventral hernia without obstruction or gangrene (principal); Z90.49 Acquired absence of other specified parts of digestive tract
CPT/HCPCS: 74176

== ENCOUNTER → 2020-04-02 15:44 | Outpatient (CLI) | payer OTHER, MEDICAID, SELFPAY ==
[2019-04-23 14:44] VITALS: BMI 28.3
--- NOTE | 2020-04-02 | DI.MG.S_ITS ---
BILATERAL DIGITAL SCREENING MAMMOGRAM 3D/2D WITH CAD: 04/02/2020 CLINICAL: Routine screening. Comparison is made to exam dated: 11/27/2018 [facility]. The tissue of both breasts is heterogeneously dense. This may lower the sensitivity of mammography. Current study was also evaluated with a Computer Aided Detection (CAD) system. No significant masses, calcifications, or other findings are seen in either breast. There has been no significant interval change. IMPRESSION: NEGATIVE There is no mammographic evidence of malignancy. A 1 year screening mammogram is recommended. This exam was interpreted at Station ID: [id number]. NOTE: For mammograms, a report in lay terms will be sent to the patient. Approximately 15% of breast malignancies will not be visualized mammographically. In the management of a palpable breast mass, a negative mammogram must not discourage biopsy of a clinically suspicious lesion. Electronically Signed By: Aileen echevarria/myke:04/02/2020 17:04:23 letter sent: Normal Exam ACR BI-RADS Category 1: Negative 3341F
== END ==
PROVIDERS: PCP Internal Medicine; Referring Provider Internal Medicine; Visit Provider Internal Medicine
DX: Z12.31 Encounter for screening mammogram for malignant neoplasm of breast (principal)
CPT/HCPCS: 77063; 77067

== ENCOUNTER → 2020-04-04 09:15 | Outpatient (CLI) | payer OTHER, MEDICAID, SELFPAY ==
[2019-04-23 14:44] VITALS: BMI 28.3
[2020-04-05 14:20] LABS: COVID19 Sendout Not Detected (Not Detect)
== END ==
PROVIDERS: PCP Internal Medicine; Visit Provider Physician Assistant
DX: Z11.59 Encounter for screening for other viral diseases (principal)
CPT/HCPCS: 87635

== ENCOUNTER 2020-04-07 06:25 | Day surgery (SDC) | payer OTHER, MEDICAID, SELFPAY ==
[2019-04-23 14:44] VITALS: BMI 28.3
[2020-04-06 09:03] VITALS: BMI 30.2
[2020-04-07] VITALS (8 sets, daily range): BP systolic 109–131; BP diastolic 7–75; PULSE 74–92; RESP 12–20; TEMP 36.6–37.6; O2SAT 89–98; BMI 30.2
[2020-04-07] MEDS: LACTATED RINGERS 1,000 ML 100 ML IV ×2 (07:16→10:25)
--- NOTE | 2020-04-07 07:42 | PM.PREOP ---
Pre-operative Note COVID-19 COVID-19 status: Negative Result date/Date tested (Pos, Neg/Pending): 04/04/20 Interval Note History & Physical reviewed/Exam performed by Physician: Yes Changes to H&P: No
[2020-04-07] MEDS: CEFAZOLIN 2 GM/100 ML FROZ.PIGGY IV (07:45)
--- NOTE | 2020-04-07 08:09 | SUR.OPER ---
Supine on padded OR bed, head on pillow, arms secured on padded arm boards at <90 degrees abduction, legs uncrossed, safety belt at thigh, tape over blanket over lower legs.
[2020-04-07] MEDS: BUPIVACAINE 0.25% W/ EPI 30 ML VIAL INJ (08:15)
[2020-04-07] MEDS: BUPIVACAINE LIPOSOME 266 MG/20 ML VIAL INJ (08:16)
--- NOTE | 2020-04-07 10:57 | P.OP_ITS ---
Operative Date/Time/Diagnoses Date of procedure: 04/07/20 Time of procedure: 10:57 Pre-op diagnosis: ventral hernia Post-op diagnosis: other (ventral hernia with three defects) Procedure & Clinicians Procedure: Repair of incarcerated ventral hernia with retro rectus placement of mesh Same procedure as scheduled: Yes Indications: Ventral hernia with incarcerated colon Surgeon: Kalpana Romeo Click Yes if Unassisted: Yes Anesthesia Type: General Operative Notes Findings: 3 x 5cm defect with three additional defects (cuban cheese defect) superior to the main defect Specimen(s): none sent Prosthetic devices, grafts, tissues, transplants, or devices: BARD soft mesh 10 x 15cm Estimated Blood Loss (mL): 1 Procedure in detail: The patient was brought into the OR, placed supine on the OR table, and appropriate preoperative antibiotics were given. Sequential compression devices were placed on both legs and turned on. General anesthesia was induced and the patient was intubated with an LMA by the anesthesiologist. The abdomen was prepped and draped in sterile fashion. A surgical time out was conducted. Local anesthetic was infiltrated into the skin and a 15 blade was used to make a 15cm vertical midline incision. Dissection was carried down t hrough the dermis and subcutaneous fat using cautery. A large hernia sac and fascial defect was found in the supra umbilical midline, with three additional smaller 1cm defects superior to it along the midline. The fascial bands between the defects were taken down, creating one central hernia defect of 5cm x 7cm. The posterior fascia was opened and dissected free from the rectus muscle bilaterally to the semilunar line. I pulled together the posterior fascia at midline and it was under tension at the upper aspect of the incision. I made 2cm relaxing incisions bilaterally about 20cm lateral to the midline incision. I was then able to closed the midline fascia without tension, using 3-0 Vicryl suture taking 5mm bites. Local anesthetic was injected into the posterior and anterior fascia using 45mL of 0.25% Marcaine with epi as well as 20 mL of Exparel. The relaxing incisions were patched and reinforced with 4.3cm Ventralex patches, secured in four corners with 2-0 PDS. A 10cm x 15cm polypropelene macroporous mesh was then placed and secured with 2-0 PDS. The rectus muscles and anterior fascia were then closed over the mesh using 0 Vicryl in the anterior fascia with good approximation of the rectus muscles. The subcutaneous fat and fascia were approximated with 3-0 Vicryl after injection of local anesthetic. A total of 60mL of 0.25% Marcaine with Epi, as well as 20mL E xparel was used for the case. The skin was closed with 4-0 Monocryl and the skin edges were sealed with Dermabond. A stack of gauze as a pressure dressing was placed over the surgical site and secured with an abdominal binder. The patient was awakened from anesthesia and extubated. She tolerated the procedure well. Needle, sponge and instrument counts were correct x 2. The patient was transferred to PACU in stable condition. Complications: none Post-operative Condition: stable Disposition: PACU
[2020-04-07] MEDS: ONDANSETRON 4 MG/2 ML INJ IV (11:23)
== END 2020-04-07 12:00 | disposition home or self-care (01) ==
PROVIDERS: PCP Internal Medicine; Referring Provider Internal Medicine; Visit Provider Surgery
PROC: (CPT 49561; principal; 2020-04-07 07:45)
DX: K43.0 Incisional hernia with obstruction, without gangrene (principal); Z98.890 Other specified postprocedural states
CPT/HCPCS: 49561; 49568; C1781; C9290; J0690; J1100; J1885; J2250; J2405; J2704; J3010

== ENCOUNTER → 2020-11-18 10:41 | Outpatient (CLI) | payer OTHER, MEDICAID, SELFPAY ==
[2019-04-23 14:44] VITALS: BMI 28.3
[2020-11-18] MEDS: COVID-19 VACC #1, MRNA(MOD) 100 MCG/0.5 ML VIAL IM (10:51)
== END ==
PROVIDERS: PCP Internal Medicine; Visit Provider Internal Medicine
DX: Z23 Encounter for immunization (principal)
CPT/HCPCS: 0011A; 91301

== ENCOUNTER → 2021-04-19 16:31 | Outpatient (CLI) | payer OTHER, MEDICAID, SELFPAY ==
[2019-04-23 14:44] VITALS: BMI 28.3
--- NOTE | 2021-04-19 | DI.MG.S_ITS ---
BILATERAL DIGITAL SCREENING MAMMOGRAM 3D/2D WITH CAD: 04/19/2021 CLINICAL: Routine screening. Comparison is made to exams dated: 04/02/2020 mammogram and 11/27/2018 mammogram - [facility]. The tissue of both breasts is heterogeneously dense. This may lower the sensitivity of mammography. Current study was also evaluated with a Computer Aided Detection (CAD) system. No significant masses, calcifications, or other findings are seen in either breast. There has been no significant interval change. IMPRESSION: NEGATIVE There is no mammographic evidence of malignancy. A 1 year screening mammogram is recommended. This exam was interpreted at Station ID: [id number]. NOTE: For mammograms, a report in lay terms will be sent to the patient. Approximately 15% of breast malignancies will not be visualized mammographically. In the management of a palpable breast mass, a negative mammogram must not discourage biopsy of a clinically suspicious lesion. Electronically Signed By: Barron bustos/myke:04/20/2021 08:31:05 letter sent: Normal Exam ACR BI-RADS Category 1: Negative 3341F
== END ==
PROVIDERS: PCP Internal Medicine; Referring Provider Internal Medicine; Visit Provider Internal Medicine
DX: Z12.31 Encounter for screening mammogram for malignant neoplasm of breast (principal)
CPT/HCPCS: 77063; 77067

== ENCOUNTER 2021-10-07 09:05 | Emergency (ER) | payer OTHER, MEDICAID, SELFPAY ==
[2019-04-23 14:44] VITALS: BMI 28.3
[2021-10-07 09:20] VITALS: BP 160/73; PULSE 74; RESP 17; TEMP 36.6; O2SAT 99; BMI 30.8
--- NOTE | 2021-10-07 09:53 | ED_ITS ---
HPI - Wound/Laceration General Chief Complaint: Wound/Laceration Stated Complaint: dog bite left hand last night Time Seen by Provider: 10/07/21 09:40 Source: patient and family Mode of arrival: Ambulatory History of Present Illness HPI narrative: The patient's dog is a Siberian Husky. The dog has skin issues. She was sending to her dog last night, the dog snapped and bit her left thumb. She has lacerations to the volar and dorsal left thumb. There is no active bleeding. The thumb is stiff, with limited range of motion. She has no numbness in thumb. She is right-hand dominant. There are no other injuries. Her last tetanus is unknown. Related Data Home Medications Medication Instructions Recorded Confirmed multivitamin 1 cap PO DAILY 04/09/19 04/22/20 Previous Rx's Medication Instructions Recorded L.acidophilus-L.bulgar-B.bifid-S.thermoph 1 ea PO TIDWM #60 tab 01/20/19 1 billion cell-250 mg tablet (Bacid) docusate sodium 100 mg capsule 100 mg PO BID #20 cap 04/05/20 oxycodone 5 mg tablet 5 mg PO Q4-6H PRN #30 tab 04/05/20 amoxicillin 875 mg-potassium 1 tab PO BID #14 tab 10/07/21 clavulanate 125 mg tablet Allergies Allergy/AdvReac Type Severity Reaction Status Date / Time No Known Drug Allergies Allergy Verified 04/22/20 13:20 Review of Systems Constitutional Constitutional: Denies chills, Denies fever(s) and Denies weakness Integumentary/Breasts Comments: Left thumb/left hand injuries as noted HPI. Neurologic Neurologic: Denies sensory deficit and Denies weakness Hematologic/Lymphatic On Anticoagulants: No Patient History Medical History (Updated 10/07/21 @ 11:05 by Rufus Arevalo MD) Colostomy in place (01/15/19) Diverticulosis Heart murmur Surgical History Hx of appendectomy (~1979) Hx of tubal ligation (~2002) Previous section (~1982) S/P colostomy takedown (04/23/19) S/P laparoscopic procedure (~02/28/18) Family History Mother Diabetes mellitus Social History marital status: household members: spouse occupational status: employed Smoking Status: Never smoker alcohol intake: current substance use type: does not use Smoking Status: Never smoker alcohol intake frequency: holidays/special occasions only Substance Use Type: does not use Exam Initial Vital Signs Initial Vital Signs: Vital Signs Temperature 98 F 10/07/21 09:20 Pulse Rate 74 10/07/21 09:20 Respiratory Rate 17 10/07/21 09:20 Blood Pressure 160/73 H 10/07/21 09:20 Pulse Oximetry 99 10/07/21 09:20 Const General: cooperative and healthy appearing Skin Other: Left thumb lacerations. Details to follow-up Neuro General: patient alert, patient oriented x3 and no focal motor deficits Sensory Exam: no sensory deficits noted Extrem Other: 2 cm laceration on the proximal volar left thumb, 2 cm laceration on the dorsal left thumb. There is no active bleeding. There is no foreign body. Eschar formation is underway. There is a superficial abrasion extending from the dorsal left thumb, up to the proximal metacarpal region. She has decreased ra nge of motion at the MCP and IP joints. There is no laxity. Tendons are intact. Capillary refill to the left thumb is normal there is edema and erythema around the wound sites. Course Course Course Narrative: The wound was soaked and cleansed by the patient's nurse. The Steri-Strips were loosely applied. A nonadhesive bandage was applied. The patient was given an initial dose of Augmentin. Orders Ordered: Discontinued Medications Amoxicillin/Clavulanate Potassium (Amoxicillin/Clav 875/125 Mg) 1 tab PO NOW ONE Stop: 10/07/21 10:32 Last Admin: 10/07/21 10:46 Dose: 1 tab Documented by: ELIOT Diphtheria/Tetanus/Acell Pertussis (Tet,Diph,Pertuss(Acell),Vac/Pf 0.5 Ml Syringe) 0.5 ml IM .ONCE ONE Stop: 10/07/21 09:55 Last Admin: 10/07/21 10:45 Dose: 0.5 ml Documented by: ELIOT Ibuprofen (Ibuprofen 400 Mg Tablet) 800 mg PO NOW ONE Stop: 10/07/21 10:55 Last Admin: 10/07/21 10:56 Dose: 800 mg Documented by: ELIOT Vital Signs Vital signs: Vital Signs - 8 hr 10/07/21 09:20 Temperature 98 F Pulse Rate 74 Respiratory Rate 17 Blood Pressure 160/73 H Pulse Oximetry 99 MDM - Wound/Laceration Imaging Data Left hand x-ray:: Radiologist's Impression: No acute bony injury. Discharge Plan Departure Patient Disposition: Home Clinical Impression: Dog bite of left thumb Instructions: DI for Puncture Wound Activity Restrictions/Additional Instructions: Keep the bandage in place for 48 hours. Augmentin 2 times daily as prescribed. After 24 hours, remove the bandage. Clean the site with soap and water. Cover the site if physically active, leave the site uncovered if at rest. The Steri-Strips will peel off in about 1 week. Return here as needed. Prescriptions: New amoxicillin-pot clavulanate 875-125 mg tablet 1 tab PO BID Qty: 14 0RF No Action oxycodone 5 mg tablet 5 mg PO Q4-6H PRN (Reason: post operative pain) Qty: 30 0RF docusate sodium 100 mg capsule 100 mg PO BID Qty: 20 0RF Bacid 1 billion cell- 250 mg Tablet 1 ea PO TIDWM Qty: 60 0RF multivitamin Capsule 1 cap PO DAILY 0RF Referrals: Taya Ribeiro ARNP [Primary Care Provider] -
--- NOTE | 2021-10-07 09:54 | DI.RAD.S_ITS ---
PROCEDURE: XR FINGER LT MIN 2V INDICATIONS: Left thumb dog bite TECHNIQUE: AP hand, 2 views of the 1st finger(s) acquired. COMPARISON: None. FINDINGS: Bones: No fractures or dislocations. No suspicious bony lesions. Soft tissues: No suspicious soft tissue calcifications. Soft tissue swelling noted in the thenar. IMPRESSION: No acute osseous abnormalities. Dictated by: Liz Fiore M.D. on 10/07/2021 at 10:14 Approved by: Liz Fiore M.D. on 10/07/2021 at 10:15
[2021-10-07] MEDS: TET,DIPH,PERTUSS(ACELL),VAC/PF 0.5 ML SYRINGE IM (10:45)
[2021-10-07] MEDS: AMOXICILLIN/CLAV 875/125 MG 1 TAB PO (10:46)
[2021-10-07] MEDS: IBUPROFEN 400 MG TABLET 800 MG PO (10:56)
[2021-10-07 11:00] VITALS: BP 150/60; PULSE 80; RESP 18; O2SAT 98
--- NOTE | 2021-10-07 11:05 | PC.NURSE ---
wound cleansed by irrigating with sterile ns. irrigated with 200 ml saline. wound dsg 2 steristrips to thumb, then xeroform abx gauze x 1 strip and [address] secured dsg with roll gauze and tape. md and rn reviewed instructions. regarding wound care. keeping clean and dry with dsg in place x 2 days. clean with gentle soap and water only, do not use any peroxide in wound. after 2 days keep open to air unless needing to do chores or other things and keep coverd to keep cleand and dry. allow scab to form and do not pick off scab.
== END 2021-10-07 11:18 | disposition home or self-care (01) ==
PROVIDERS: Emergency Provider Emergency Medicine; PCP Internal Medicine
DX: S61.052A Open bite of left thumb without damage to nail, initial encounter (principal); W54.0XXA Bitten by dog, initial encounter; Z23 Encounter for immunization
CPT/HCPCS: 73140; 90471; 99283; 99284; 90715

== ENCOUNTER → 2022-04-24 16:25 | Outpatient (CLI) | payer OTHER, MEDICAID, SELFPAY ==
[2019-04-23 14:44] VITALS: BMI 28.3
--- NOTE | 2022-04-24 16:26 | DI.MG.S_ITS ---
BILATERAL DIGITAL SCREENING MAMMOGRAM 3D/2D WITH CAD: 04/24/2022 CLINICAL: Routine screening. Comparison is made to exams dated: 04/19/2021 mammogram, 04/02/2020 mammogram, and 11/27/2018 mammogram - [facility]. Both breasts are heterogeneously dense, which may obscure small masses (category c / 51-75% glandular tissue). Current study was also evaluated with a Computer Aided Detection (CAD) system. No significant masses, calcifications, or other findings are seen in either breast. There has been no significant interval change. IMPRESSION: NEGATIVE There is no mammographic evidence of malignancy. A 1 year screening mammogram is recommended. Based on the Tyrer Cuzick model (a risk assessment model) the patient's lifetime risk is 8.0% and her 10 year risk is 2.9%. According to the ACR, ACS, and NCCN guidelines, an annual breast MRI exam along with mammogram is recommended if the patient's lifetime risk is 20% or greater. This exam was interpreted at Station ID: [id number]. NOTE: For mammograms, a report in lay terms will be sent to the patient. Approximately 15% of breast malignancies will not be visualized mammographically. In the management of a palpable breast mass, a negative mammogram must not discourage biopsy of a clinically suspicious lesion. Electronically Signed By: Brennen renteria/myke:04/25/2022 08:10:15 letter sent: Normal Exam ACR BI-RADS Category 1: Negative 3341F
== END ==
PROVIDERS: PCP Internal Medicine; Referring Provider Internal Medicine; Visit Provider Internal Medicine
DX: Z12.31 Encounter for screening mammogram for malignant neoplasm of breast (principal)
CPT/HCPCS: 77063; 77067

== ENCOUNTER → 2022-05-23 14:15 | Outpatient (CLI) | payer OTHER, MEDICAID, SELFPAY ==
[2019-04-23 14:44] VITALS: BMI 28.3
--- NOTE | 2022-05-23 14:17 | DI.RAD.S_ITS ---
PROCEDURE: XR KNEE RT 3V INDICATIONS: BILATERAL KNEE PAIN TECHNIQUE: 3 views of the right knee were acquired. COMPARISON: None. FINDINGS: Bones: No fractures or dislocations. No suspicious bony lesions. Moderate medial and patellofemoral compartment right knee osteoarthritis. Mild lateral compartment right knee osteoarthritis. Soft tissues: No joint effusion. No suspicious soft tissue calcifications. IMPRESSION: Right knee tricompartmental osteoarthritis as described above. Dictated by: Althea Santos MD, PhD on 05/23/2022 at 15:33 Approved by: Althea Santos MD, PhD on 05/23/2022 at 15:33
--- NOTE | 2022-05-23 14:17 | DI.RAD.S_ITS ---
PROCEDURE: XR KNEE LT 3V INDICATIONS: BILATERAL KNEE PAIN TECHNIQUE: 3 views of the left knee were acquired. COMPARISON: None. FINDINGS: Bones: No fractures or dislocations. No suspicious bony lesions. Moderate left knee medial and patellofemoral compartment osteoarthritis. Mild left knee lateral compartment osteoarthritis. Soft tissues: No joint effusion. No suspicious soft tissue calcifications. IMPRESSION: Left knee tricompartmental osteoarthritis as described above. Dictated by: Althea Santos MD, PhD on 05/23/2022 at 15:34 Approved by: Althea Santos MD, PhD on 05/23/2022 at 15:34
== END ==
PROVIDERS: PCP Internal Medicine; Referring Provider Internal Medicine; Visit Provider Internal Medicine
DX: M25.561 Pain in right knee (principal); M25.562 Pain in left knee; M17.0 Bilateral primary osteoarthritis of knee
CPT/HCPCS: 73562

== ENCOUNTER 2022-05-25 18:30 | Observation (INO) | payer OTHER, MEDICAID, SELFPAY ==
[2019-04-23 14:44] VITALS: BMI 28.3
[2022-05-25 18:41] VITALS: BP 224/98; PULSE 78; RESP 20; TEMP 36; O2SAT 98; BMI 30.7
--- NOTE | 2022-05-25 18:45 | DI.CT.S_ITS ---
PROCEDURE: CT HEAD/BRAIN WO CON INDICATIONS: sudden headache TECHNIQUE: Noncontrast 4.5 mm thick angled axial sections acquired from the foramen magnum to the vertex, with coronal and sagittal reformats. For radiation dose reduction, the following was used: automated exposure control, adjustment of mA and/or kV according to patient size. COMPARISON: None. FINDINGS: Image quality: Excellent. CSF spaces: Basal cisterns are patent. No extra-axial fluid collections. The ventricles are symmetric in size and shape. Brain: No acute intracranial hemorrhage or mass effect. There is mild cerebral volume loss for age, with resultant ventricular and sulcal prominence. There are mild periventricular and deep white matter chronic small vessel ischemic changes. There is intracranial internal carotid artery atherosclerosis. Skull and face: Calvarium and visualized facial bones appear intact, without suspicious lesions. Sinuses: Visualized sinuses and mastoids are clear. IMPRESSION: No acute intracranial abnormality. Approved by: Rey Khoury M.D. on 05/25/2022 at 19:43
[2022-05-25 20:15] VITALS: BP 178/77
--- NOTE | 2022-05-25 23:41 | DI.RAD.S_ITS ---
PROCEDURE: XR CHEST 1V INDICATIONS: chest pain TECHNIQUE: One view of the chest was acquired. COMPARISON: None. FINDINGS: Surgical changes and devices: None. Lungs and pleura: Lungs are clear. No pleural effusions or pneumothorax. Mediastinum: Mediastinal contours appear normal. Heart size is normal. Bones and chest wall: No suspicious bony lesions. Overlying soft tissues appear unremarkable. IMPRESSION: 1. No acute cardiopulmonary disease. Dictated by: Barron Inman M.D. on 05/26/2022 at 1:12 Approved by: Barron Inman M.D. on 05/26/2022 at 1:13
[2022-05-25 23:53] LABS: Add Manual Diff / Slide Review NO; Basophils Absolute Auto 0 /uL (0-100); Basophils Percent Auto 0.6 % (0-2); Eosinophils Absolute Auto 0 /uL (0-450); Eosinophils Percent Auto 0.4 % (2-4); Hematocrit 44.8 % (36-46); Lymphocytes Absolute Auto 1100 /uL (1100-4500); Lymphocytes Percent Auto 14.8 % (25-40); Mean Corpuscular HGB Conc 33.6 % (30-36); Mean Corpuscular Hemoglobin 30.2 PG (26-34); Mean Corpuscular Volume 89.8 fL (80-100); Monocytes Absolute Auto 500 /uL (0-900); Monocytes Percent Auto 7.4 % (3-14); Neutrophils Absolute Auto 5600 /uL (1500-7000); Neutrophils Percent Auto 76.8 % (50-75); Platelet Count 209 X10^3/uL (150-400); Red Blood Cell Count 4.99 X10^6/uL (4.0-5.2); Red Cell Distribution Width 13.2 % (11.6-14.8); White Blood Cell Count 7.3 X10^3/uL (4.5-11.0)
[2022-05-26] VITALS (15 sets, daily range): BP systolic 109–187; BP diastolic 64–97; PULSE 60–77; RESP 14–18; TEMP 36.3–36.8; O2SAT 95–98; BMI 30.7
[2022-05-26 00:13] LABS: Alanine Aminotransferase 107 IU/L (<35); Albumin 5.1 g/dL (3.5-5.0); Albumin Globulin Ratio 1.3 (1.0-2.8); Alkaline Phosphatase 64 U/L (38-126); Aspartate Aminotransferase 64 IU/L (14-36); BUN Creatinine Ratio 21.1 (6-22); Bilirubin Total 0.5 mg/dL (0.2-1.3); Blood Urea Nitrogen 12 mg/dL (7-17); Carbon Dioxide 26 mmol/L (22-32); Chloride 100 mmol/L (98-107); Creatine Kinase 97 U/L (30-135); Estimated Glomerular Filt Rate > 60 mL/min (>60); Globulin 3.9 g/dL (1.7-4.1); Glucose 119 mg/dL (70-100); HEMOLYSIS < 15 (0-50); Lipase 155 U/L (23-300); Magnesium 1.9 mg/dL (1.6-2.3); Potassium 4.3 mmol/L (3.4-5.1); Sodium 138 mmol/L (137-145)
[2022-05-26 00:24] LABS: Troponin I 0.026 ng/mL (0.01-0.034)
[2022-05-26 00:44] LABS: Troponin I 0.057 ng/mL (0.01-0.034)
--- NOTE | 2022-05-26 01:02 | ED_ITS ---
HPI - Headache General Chief Complaint: Headache Stated Complaint: 203/117 BP, Headache Time Seen by Provider: 05/26/22 00:50 Mode of arrival: Ambulatory History of Present Illness HPI Narrative: Patient here with . Complains of headache and elevated blood pressure. Denies any chest pain no syncope. No slurred speech or facial droop or numbness tingling or weakness or dizziness. Patient seen by her primary care office a couple weeks ago and blood pressure was 140/80. Today she had her 1st appointment for physical therapy for knees. While on the cycling bike, she felt headache but no chest pain or dyspnea or syncope. Related Data Home Medications Medication Instructions Recorded Confirmed multivitamin 1 cap PO DAILY 04/09/19 04/22/20 Previous Rx's Medication Instructions Recorded L.acidophilus-L.bulgar-B.bifid-S.thermoph 1 ea PO TIDWM #60 tabs 01/20/19 1 billion cell-250 mg tablet (Bacid) docusate sodium 100 mg capsule 100 mg PO BID prevent constipation 04/05/20 from pain meds #20 caps oxycodone 5 mg tablet 5 mg PO Q4-6H PRN post operative 04/05/20 pain #30 tabs amoxicillin 875 mg-potassium 1 tab PO BID #14 tabs 10/07/21 clavulanate 125 mg tablet Allergies Allergy/AdvReac Type Severity Reaction Status Date / Time No Known Drug Allergies Allergy Verified 04/22/20 13:20 Review of Systems Review of Systems Narrative: GENERAL: Denies chills, fatigue, malaise, fever, sweats. 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) Diverticulosis Heart murmur Surgical History Hx of appendectomy (~1979) Hx of tubal ligation (~2002) Previous section (~1982) S/P colostomy takedown (04/23/19) S/P laparoscopic procedure (~02/28/18) Family History Mother Diabetes mellitus Social History marital status: household members: spouse occupational status: employed Smoking Status: Never smoker alcohol intake: current substance use type: does not use Smoking Status: Never smoker alcohol intake frequency: holidays/special occasions only Substance Use Type: does not use Exam Narrative Exam Narrative: GENERAL: in no distress, not toxic not dyspneic HEAD: Normocephalic. EYES: Pupils equal round No scleral icterus. ENT: Mucous membranes moist. NECK: Trachea midline. CARDIOVASCULAR: Regular rate and rhythm without murmurs RESPIRATORY: Clear to auscultation. Breath sounds equal bilaterally. No wheezes, rales, or rhonchi. GASTROINTESTINAL: Abdomen soft, non-tender EXTREMITIES: No gross deformities. BACK: No flank tenderness. NEURO: AOx4. 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 Negative pronator drift SKIN: Warm and dry PSYCH: Not anxious, is cooperative Initial Vital Signs Initial Vital Signs: Vital Signs Temperature 96.8 F L 05/25/22 18:41 Pulse Rate 78 05/25/22 18:41 Respiratory Rate 20 05/25/22 18:41 Blood Pressure 224/98 H 05/25/22 18:41 Pulse Oximetry 98 05/25/22 18:41 Oxygen Delivery Method 05/25/22 18:41 Course Course Course Narrative: No new issues during course of stay Decision to Admit Date: 05/26/22 Decision to Admit time: 01:06 Orders Ordered: ED Orders 05/25/22 23:41 XR chest 1V Stat 05/26/22 00:15 Lipid Panel Urgent NT-proBNP (BNP-Adult 18+) Urgent 05/26/22 00:22 Troponin I Stat 05/26/22 01:24 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) Stat 05/26/22 01:26 COVID19 -Nasal RAPID/Pre-Proc Stat 05/26/22 01:59 Education, smoking cessation ONGOING 05/26/22 02:10 Consult to Dietitian, Adult Routine 05/26/22 02:11 EC echo doppler complete Urgent 05/26/22 04:55 Partial Thromboplastin Time Routine Prothrombin Time INR Routine TSH w/ Reflex to FT4 Stat Troponin I Routine Acetaminophen (Acetaminophen 325 Mg Tablet) 650 mg PO Q6H PRN PRN Reason: Fever/Mild Pain (1-3) Last Admin: 05/26/22 04:26 Dose: 650 mg Documented By: Hydrocodone Bitart/Acetaminophen (Hydrocodone/Acet 5/325 Tablet) 1 tab PO Q4H PRN PRN Reason: Pain, Moderate (4-10) Enoxaparin Sodium (Enoxaparin 40 Mg/0.4 Ml Syringe) 40 mg SUBCUT DAILY [facility] Metoprolol Succinate (Metoprolol Er 25 Mg Tablet) 25 mg PO NOW ONE Stop: 05/26/22 09:01 Morphine Sulfate (Morphine 2 Mg/Ml Inj) 2 mg IV Q5MIN PRN PRN Reason: Chest Pain Naloxone HCl (Naloxone 0.4 Mg/Ml Vial) 0.2 mg IV Q2MIN PRN PRN Reason: Opiate Reversal Nitroglycerin (Nitroglycerin 0.4 Mg Sl Tab) 0.4 mg SL [id number] PRN PRN Reason: Chest Pain Ondansetron HCl (Ondansetron 4 Mg/2 Ml Inj) 4 mg IV Q8HR PRN PRN Reason: Nausea And Vomiting Sodium Chloride (Sodium Chloride 0.9% Flush) 10 ml IV BID BRANDEE Discontinued Medications Hydrocodone Bitart/Acetaminophen (Hydrocodone/Acet 5/325 Tablet) 1 tab PO NOW ONE Stop: 05/26/22 01:02 Last Admin: 05/26/22 01:10 Dose: 1 tab Documented By: ZEYAD Metoprolol Succinate (Metoprolol Er 25 Mg Tablet) 25 mg PO NOW ONE Stop: 05/26/22 01:02 Last Admin: 05/26/22 01:10 Dose: 25 mg Documented By: ZEYAD Morphine Sulfate (Morphine 4 Mg/Ml Inj) 4 mg IV NOW ONE Stop: 05/26/22 02:15 Last Admin: 05/26/22 02:18 Dose: 4 mg Documented By: MAXIMUS Ondansetron HCl (Ondansetron 4 Mg/2 Ml Inj) 4 mg IV NOW ONE Stop: 05/26/22 01:02 Last Admin: 05/26/22 01:10 Dose: 4 mg Documented By: RL Reevaluation(s) Reevaluation #1: Reviewed results with patient. She understands may need admission for blood pressure control. Time: 01:08 Consultations Consultation #1: s/w cardiology, dr gardner, troponin likely due cardiac demand from high blood pressure. Do not start heparin or Plavix or aspirin. We continued to do serial enzymes and possible echocardiogram in the morning Time: 01:05 Consultation #2: Spoke with hospitalist, Cony Jordan, will admit Time: 01:47 Vital Signs Vital signs: Vital Signs - 8 hr 05/26/22 00:14 05/26/22 00:14 05/26/22 00:16 Pulse Rate 77 77 Respiratory Rate Blood Pressure 181/97 H Pulse Oximetry 98 98 05/26/22 00:16 05/26/22 00:30 05/26/22 00:30 Pulse Rate 76 Respiratory Rate Blood Pressure 187/88 H 173/79 H Pulse Oximetry 95 05/26/22 00:45 05/26/22 00:45 05/26/22 01:00 Pulse Rate 74 Respiratory Rate Blood Pressure 158/79 H 179/84 H Pulse Oximetry 97 05/26/22 01:00 05/26/22 01:15 05/26/22 01:15 Pulse Rate 72 73 Respiratory Rate Blood Pressure 182/90 H Pulse Oximetry 98 97 05/26/22 01:27 05/26/22 01:27 05/26/22 01:30 Pulse Rate 71 Respiratory Rate 15 Blood Pressure 165/79 H 171/83 H Pulse Oximetry 95 05/26/22 01:30 05/26/22 01:45 05/26/22 01:45 Pulse Rate 64 66 Respiratory Rate 17 18 Blood Pressure 163/74 H Pulse Oximetry 98 97 05/26/22 02:00 05/26/22 02:00 05/26/22 03:14 Pulse Rate 70 68 Respiratory Rate 17 Blood Pressure 167/81 H 131/75 Pulse Oximetry 96 MDM - Headache Differential Diagnosis Differential diagnosis: Likely migraine, tension headache, subarachnoid hemorrhage, headache and other (Hypertensive urgency) Lab Data Result diagrams: 05/25/22 20:00 05/25/22 20:00 Labs: Lab Results 05/25/22 05/25/22 05/26/22 Range/Units 20:00 20:00 00:15 WBC 7.3 (4.5-11.0) X10^3/uL RBC 4.99 (4.0-5.2) X10^6/uL Hgb 15.0 (12.0-16.0) g/dL Hct 44.8 (36-46) % MCV 89.8 (80-100) fL MCH 30.2 (26-34) PG MCHC 33.6 (30-36) % RDW 13.2 (11.6-14.8) % Plt Count 209 (150-400) X10^3/uL Neut % (Auto) 76.8 H (50-75) % Lymph % (Auto) 14.8 L (25-40) % [place] % (Auto) 7.4 (3-14) % Eos % (Auto) 0.4 L (2-4) % Baso % (Auto) 0.6 (0-2) % Neut # (Auto) 5600 (9179-4557) /uL Lymph # (Auto) 1100 (2445-5062) /uL [place] # (Auto) 500 (0-900) /uL Eos # (Auto) 0 (0-450) /uL Baso # (Auto) 0 (0-100) /uL Sodium 138 (137-145) mmol/L Potassium 4.3 (3.4-5.1) mmol/L Chloride 100 (98-107) mmol/L Carbon Dioxide 26 (22-32) mmol/L BUN 12 (7-17) mg/dL Creatinine 0.57 (0.52-1.04) mg/dL Estimated GFR > 60 (>60) mL/min BUN/Creatinine Ratio 21.1 (6-22) Glucose 119 H (70-100) mg/dL Calcium 10.0 (8.4-10.2) mg/dL Magnesium 1.9 (1.6-2.3) mg/dL Total Bilirubin 0.5 (0.2-1.3) mg/dL AST 64 H (14-36) IU/L ALT 107 H (<35) IU/L Alkaline Phosphatase 64 (38-126) U/L Total Creatine Kinase 97 (30-135) U/L CK-MB (CK-2) TNP CK-MB (CK-2) Rel Index TNP Troponin I 0.026 (0.01-0.034) ng/mL NT-Pro-B Natriuret Pep 130 H (<125) pg/mL Total Protein 9.0 H (6.3-8.2) g/dL Albumin 5.1 H (3.5-5.0) g/dL Globulin 3.9 (1.7-4.1) g/dL Albumin/Globulin Ratio 1.3 (1.0-2.8) Triglycerides (35-150) mg/dL Cholesterol (140-199) mg/dL LDL Cholesterol, Calc (<100) mg/dL HDL Cholesterol (40-60) mg/dL Lipase 155 (23-300) U/L SARS-CoV-2 (PCR) (Negative) 05/26/22 05/26/22 05/26/22 Range/Units 00:15 00:22 01:26 WBC (4.5-11.0) X10^3/uL RBC (4.0-5.2) X10^6/uL Hgb (12.0-16.0) g/dL Hct (36-46) % MCV (80-100) fL MCH (26-34) PG MCHC (30-36) % RDW (11.6-14.8) % Plt Count (150-400) X10^3/uL Neut % (Auto) (50-75) % Lymph % (Auto) (25-40) % [place] % (Auto) (3-14) % Eos % (Auto) (2-4) % Baso % (Auto) (0-2) % Neut # (Auto) (2790-4040) /uL Lymph # (Auto) (1356-5358) /uL [place] # (Auto) (0-900) /uL Eos # (Auto) (0-450) /uL Baso # (Auto) (0-100) /uL Sodium (137-145) mmol/L Potassium (3.4-5.1) mmol/L Chloride (98-107) mmol/L Carbon Dioxide (22-32) mmol/L BUN (7-17) mg/dL Creatinine (0.52-1.04) mg/dL Estimated GFR (>60) mL/min BUN/Creatinine Ratio (6-22) Glucose (70-100) mg/dL Calcium (8.4-10.2) mg/dL Magnesium (1.6-2.3) mg/dL Total Bilirubin (0.2-1.3) mg/dL AST (14-36) IU/L ALT (<35) IU/L Alkaline Phosphatase (38-126) U/L Total Creatine Kinase (30-135) U/L CK-MB (CK-2) CK-MB (CK-2) Rel Index Troponin I 0.057 H (0.01-0.034) ng/mL NT-Pro-B Natriuret Pep (<125) pg/mL Total Protein (6.3-8.2) g/dL Albumin (3.5-5.0) g/dL Globulin (1.7-4.1) g/dL Albumin/Globulin Ratio (1.0-2.8) Triglycerides 111 (35-150) mg/dL Cholesterol 269 H (140-199) mg/dL LDL Cholesterol, Calc 185 H (<100) mg/dL HDL Cholesterol 62 H (40-60) mg/dL Lipase (23-300) U/L SARS-CoV-2 (PCR) Negative (Negative) Imaging Data CT scan - head: Radiologist's Impression: [place] [address] CT Scan Report Signed Patient: Berta Yusuf MR#: [id number] : 1965 Acct:[id number] Age/Sex: 56 / F Date of Service: 05/25/22 Loc: ED Accession Number: [id number] ?? Procedure: CT head/brain wo con Ordering Provider: Bert Oakley MD PROCEDURE:? CT HEAD/BRAIN WO CON ? INDICATIONS:? sudden headache ? TECHNIQUE:? Noncontrast 4.5 mm thick angled axial sections acquired from the foramen magnum to the vertex, with coronal and sagittal reformats.? For radiation dose reduction, the following was used:? automated exposure control, adjustment of mA and/or kV according to patient size.? ? COMPARISON:? None. ? FINDINGS:? Image quality:? Excellent.? ? CSF spaces:? Basal cisterns are patent.? No extra-axial fluid collections.? The ventricles are symmetric in size and shape.? ? Brain:? No acute intracranial hemorrhage or mass effect.? There is mild cerebral volume loss for age, with resultant ventricular and sulcal prominence.? There are mild periventricular and deep white matter chronic small vessel ischemic changes.? There is intracranial internal carotid artery atherosclerosis.? ? Skull and face:? Calvarium and visualized facial bones appear intact, without suspicious lesions.? ? Sinuses:? Visualized sinuses and mastoids are clear.? ? IMPRESSION:? No acute intracranial abnormality. ? ? ? Approved by: Rey Khoury M.D. on 05/25/2022 at 19:43? Chest x-ray: Radiologist's Impression: [address] [address] XRay Report Signed Patient: Berta Yusuf MR#: [id number] : 1965 Acct:[id number] Age/Sex: 56 / F Date of Service: 05/25/22 Loc: ED Accession Number: [id number] ?? Procedure: XR chest 1V Ordering Provider: Bert Oakley MD PROCEDURE:? XR CHEST 1V ? INDICATIONS:? chest pain ? TECHNIQUE:? One view of the chest was acquired.? ? COMPARISON:? None. ? FINDINGS:? ? Surgical changes and devices:? None.? ? Lungs and pleura:? Lungs are clear.? No pleural effusions or pneumothorax.? ? Mediastinum:? Mediastinal contours appear normal.? Heart size is normal.? ? Bones and chest wall:? No suspicious bony lesions.? Overlying soft tissues appear unremarkable.? ? IMPRESSION:? ? 1.? No acute cardiopulmonary disease. ? ? ? Dictated by: Barron Inman M.D. on 05/26/2022 at 1:12 ? ? Approved by: Barron Inman M.D. on 05/26/2022 at 1:13 ? ECG Data Interpretation: Normal sinus rhythm normal EKG rate [address] elevation or depression MDM Narrative Medical decision making narrative: Appropriate for admission for hypertensive urgency and needing echocardiogram. Troponin likely due to blood pressure such cardiac demand, I did review with athletic scout. Patient agrees for admission. Spoke with hospitalist and agrees for admit Discharge Plan Departure Patient Disposition: Admitted as Observation Clinical Impression: Hypertensive urgency Admit Date/Time: 05/26/22 03:22 Admit Provider: Cony Jordan
[2022-05-26] MEDS: METOPROLOL ER 25 MG TABLET PO (01:10)
[2022-05-26] MEDS: HYDROCODONE/ACET 5/325 TABLET 1 TAB PO (01:10)
[2022-05-26] MEDS: ONDANSETRON 4 MG/2 ML INJ IV (01:10)
[2022-05-26 02:00] LABS: COVID19 -Nasal RAPID Negative (Negative)
--- NOTE | 2022-05-26 02:11 | DI.ECHO.S_ITS ---
[place] [facility]---------+ [facility] +---------+ : : [address] : : : : [id number] : : : : Phone: [phone] Echocardiogram Report + + :Name: ENDER HERNANDEZ Study Date: 05/26/2022 Height: 60 in : :[facility] ReadingLocation: Weight: 157 lb : : Gender: Female BSA: 1.7 m2 : :: 1965 Age: 56 yrs BP: 109/65 mmHg: :Reason For Study: Hypertension : :Ordering Physician: SANDRO, : :JOAQUINA Performed By: Arthur Baez : :Referring: JOAQUINA JO : + + Interpretation Summary Normal sinus rhythm. Normal LV size, wall thickness, wall motion and LV systolic function. EF is 65-70% Normal chamber sizes. No valvular abnormalities. No prior study available for comparison. Procedure: A two-dimensional transthoracic echocardiogram with color flow and Doppler was performed. The study quality was technically adequate. There is no prior echocardiogram noted for this patient. The patient was in normal sinus rhythm during the exam. Left Ventricle: The left ventricle is normal in size and wall thickness. Left ventricular systolic function is normal. The ejection fraction is estimated to be 65-70%. There are no focal wall motion abnormalities. Diastolic function could not be accurately assessed due to unobtainable data. Right Ventricle: The right ventricle is normal in size and function. Atria: Both atria are normal in size. The interatrial septum grossly appears intact with no obvious evidence for an atrial septal defect. Mitral Valve: The mitral valve is normal in structure and function. There is mild mitral regurgitation. Aortic Valve: The aortic valve is normal in structure and function. No aortic regurgitation is present. Tricuspid Valve: The tricuspid valve is normal in structure and function. There is a trace or physiologic amount of tricuspid regurgitation. Pulmonary artery pressures cannot be estimated because of the lack of a measurable TR jet velocity. Pulmonic Valve: The pulmonic valve is normal in structure and function. There is a trace or physiologic amount of pulmonic regurgitation. Great Vessels: The aortic root is normal size. The dimensions of the ascending aorta are normal. The IVC is of normal diameter and collapses greater than 50% with a sniff. This suggests a low right atrial pressure of 3 mm Hg. Pericardium/ Pleura There is no pericardial effusion. There is no pleural effusion. MMode/2D Measurements & Calculations LVIDd: 4.3 cm LVOT diam: 2.0 cm LVIDs: 2.7 cm Ao root diam: 2.9 cm FS: 37.6 % asc Aorta Diam: 3.1 cm IVSd: 0.90 cm LVPWd: 0.69 cm LV paz. diameter/BSA (cm/m^2): 2.6 LV sys. diameter/BSA (cm/m^2): 1.6 LA A2 area: 14.1 cm2 RA long axis: 4.8 cm LA A4 area: 16.8 cm2 RA area: 13.8 cm2 LA length (vol): 6.0 cm RA vol: 33.9 ml LA vol: 33.4 ml RA : 20.1 ml/m2 LA vol index: 19.8 ml/m2 TAPSE: 1.8 cm Doppler Measurements & Calculations Ao V2 max: 134.0 cm/sec LVOT Max Diallo: 110.9 cm/sec Ao V2 mean: 92.8 cm/sec LV V1 max P.9 mmHg Ao max P.2 mmHg LV V1 VTI: 22.5 cm Ao mean P.8 mmHg GUTIERREZ(I,D): 2.5 cm2 Ao V2 VTI: 27.4 cm GUTIERREZ(V,D): 2.5 cm2 sev ratio: 0.82 GUTIERREZ indexed to BSA (cm^2/m^2): 1.5 MV E max diallo: 89.5 cm/sec SV(LVOT): 68.3 ml MV A max diallo: 82.9 cm/sec MV E/A: 1.1 Med Peak E' Diallo: 6.9 cm/sec E/E' med: 13.0 Lat Peak E' Diallo: 9.2 cm/sec E/E' lat: 9.7 E/e' average: 11.3 MV dec time: 0.27 sec Electronically signed by: Iram Cochran M.D. on Reading Physician:05/26/2022 11:29 AM
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
[2022-05-26] MEDS: MORPHINE 4 MG/ML INJ IV (02:18)
[2022-05-26 02:30] LABS: Cholesterol 269 mg/dL (140-199); HDL Cholesterol 62 mg/dL (40-60); LDL Cholesterol Calculated 185 mg/dL (<100); Triglycerides 111 mg/dL (35-150)
[2022-05-26 02:38] LABS: NT-proBNP (BNP-Adult 18+) 130 pg/mL (<125)
[2022-05-26] MEDS: ACETAMINOPHEN 325 MG TABLET 650 MG PO ×2 (04:26→10:10)
[2022-05-26 05:20] LABS: INR 1.1 (0.9-1.3); Prothrombin Time 12.7 SECONDS (10.1-12.7)
[2022-05-26 05:23] LABS: PTT Partial Thromboplastin Tim 28 SECONDS (26-36)
[2022-05-26 05:37] LABS: Troponin I 0.065 ng/mL (0.01-0.034)
[2022-05-26 05:55] LABS: TSH w/ Reflex to FT4 0.76 uIU/mL (0.47-4.68)
--- NOTE | 2022-05-26 06:35 | DI.CT.S_ITS ---
PROCEDURE: CT ABDOMEN PELVIS WO CON INDICATIONS: abd pain , acute HTN urgency without HTN, hx abd surgw/mesh TECHNIQUE: Noncontrast 5 mm thick sections acquired from the diaphragms to the symphysis. 5 mm coronal and sagittal reformats were then performed. For radiation dose reduction, the following was used: automated exposure control, adjustment of mA and/or kV according to patient size. COMPARISON: [facility], CT, CT ABDOMEN PELVIS WO CON, 03/26/2020, 8:37. FINDINGS: Image quality: Excellent. ABDOMEN: Lung bases: Lung bases are clear. Heart size is normal. Solid organs: Diffusely hypodense liver with relative sparing in the periphery and in the gallbladder fossa. No discrete lesions. Normal gallbladder without calcified stones. Biliary system is nondilated. Calcifications in the pancreatic tail appear to be vascular. Pancreas is otherwise normal. Spleen is normal size. Kidneys are unremarkable. No stones or hydronephrosis no perinephric inflammation. Ureters are normal caliber. No ureteral stone. Peritoneum and bowel: Unenhanced bowel loops demonstrate normal wall thickness and caliber. There is an intact colorectal anastomosis. No free fluid or air. Nodes and vessels: No retroperitoneal or mesenteric adenopathy by size criteria. Aorta and inferior vena cava are normal in caliber. Miscellaneous: No ventral hernias. PELVIS: Genitourinary: Bladder wall thickness is normal. Uterus and residual ovarian tissue is normal. Miscellaneous: No inguinal hernias or adenopathy. Bones: No suspicious bony lesions. No vertebral body compression fractures. IMPRESSION: 1. No acute process. 2. Moderate hepatic steatosis. 3. No evidence of ventral abdominal hernia. Dictated by: Aileen White M.D. on 05/26/2022 at 11:03 Approved by: Aileen White M.D. on 05/26/2022 at 11:08
--- NOTE | 2022-05-26 08:48 | P.DS_ITS ---
History of Present Illness History of Present Illness Chief complaint: 203/117 BP, Headache Narrative: Berta Yusuf is a 56-year-old female with a medical history of Jojo's procedure for perforated diverticula following colonoscopy, diverticulosis, and heart murmur, who takes no medications.? Who presented to the ED this evening after attending physical therapy during the day was exercising on the bike for approximately 5 minutes when she developed an acute significant headache without neurological symptoms and was found to have elevated blood pressure without the diagnosis of hypertension.? Patient was then advised to come to the ED. patient's blood pressures in ED 203/117, 179/79, 173/79.? Patient does advise that she has been having increasing abdominal firmness and discomfort that has impaired her movement inability on and, it is noted that she has had significant amount of abdominal surgery and has mesh in place.? She had been scheduled to get an abdominal CT for evaluation, due to concerns of issues regarding mesh or scar tissue.? Patient denies chest pain, shortness of breath, changes in vision, numbness, tingling, weakness, difficulty with ambulation, fever, body aches, chills, cough, sore throat, nasal congestion, ear or eye discomfort, nausea, vomiting, diarrhea, constipation, urinary increased frequency, urgency, dysuria, skin wounds or infection, exposure to illness, recreational substances, daily alcohol intake, recent illness injury or trauma.? Patient was given 25 mg me toprolol extended-release p.o. in ED. Upon admit temp 96.8?, BP 167/81, HR 70, RR 17, O2 saturation 96% on room air, BMI 30.7.? Patient's hematology and chemistry panels are unremarkable, only noted AST 64 ALT of 107, total protein 9.0.? Patient does have a slightly elevating troponin 0.026, 0.057.? EKG NSR at a rate of [address] or T-wave changes. Ed Dr. Oakley Consult:s/w cardiology, dr gardner, troponin likely due cardiac demand from high blood pressure.? Do not start heparin or Plavix or aspirin.?Continue to do serial enzymes and echocardiogram in the morning chest x-ray is negative for any acute cardiopulmonary process, head CT is negative for any acute intracranial process.? Patient is admitted for hypertensive urgency without the prior diagnosis of hypertension. Discharge Providers Provider Date of admission: 05/26/22 03:22 Discharge Date: 05/26/22 Primary care physician: CRISTIANE Sterling Consults: 05/26/22 02:10 Consult to Dietitian, Adult Routine Comment: Reason For Exam: HTN, BMI 30.7 Discharge provider: Stewart Thornton DO Summary Hospital Course Discharge Diagnosis: 1. Hypertensive urgency without the diagnosis of hypertension, acute, present admission 2. Elevated troponins x2, myocardial injury, acute, present on admission 3. Overweight, acute on chronic, present on admission -dietary consult ordered regarding nutritional education and information for dietary, lifestyle, exercise, and weight changes. -the patient is at much higher risk for medical and surgical complications due to being overweight as it increases the risk of developing chronic illnesses:, and adversely affecting acute illness/HTN urgency.? The patient being over weight increases the difficulty and complexity of medical and/or surgical interventions, management and increases the chances of poor outcome such as morbidity and mortality. 4. History of perforated diverticula following colonoscopy/diverticulosis resulting in colostomy (temporary), chronic, abdominal pain, acute, present on admission -newer onset diffuse abdominal discomfort firmness and impaired mobility, mesh in place in abd. -abdominal CT ordered and was negative Hospital Course: Admitted for headache and severe elevated BP of 203/117. No known history of HTN. Patient was working out and suddenly developed a headache and flushing associated with the high BP. Diagnosed with hypertensive urgency/emergency as elevated troponin present. BP quickly improved with metoprolol XL to 170's systolic then to 132/64 the next day. Recommended she start a daily BP medicati ons but patient not interested. Spoke about other potential causes of HTN urg to include pheochromocytoma, however quite unlikely given rarity of this. She will f/u with her PCP to have her BP monitored. Echo came back completely normal. Head CT showed no ICH. Patient also had some abd pain but CT abd showed only fatty liver and no source of the pain. Pain was mainly positional and sounded more like abd muscle cramps so patient was reassured of this. Time Spent with Patient Time spent: Greater than 30 minutes Exam Vital Signs (past 8 hours): - 05/26/22 01:00 05/26/22 01:00 05/26/22 01:15 Temperature Pulse Rate 72 Respiratory Rate Blood Pressure 179/84 H 182/90 H Pulse Oximetry 98 Oxygen Flow Rate 05/26/22 01:15 05/26/22 01:27 05/26/22 01:27 Temperature Pulse Rate 73 71 Respiratory Rate 15 Blood Pressure 165/79 H Pulse Oximetry 97 95 Oxygen Flow Rate 05/26/22 01:30 05/26/22 01:30 05/26/22 01:45 Temperature Pulse Rate 64 Respiratory Rate 17 Blood Pressure 171/83 H 163/74 H Pulse Oximetry 98 Oxygen Flow Rate 05/26/22 01:45 05/26/22 02:00 05/26/22 02:00 Temperature Pulse Rate 66 70 Respiratory Rate 18 17 Blood Pressure 167/81 H Pulse Oximetry 97 96 Oxygen Flow Rate 05/26/22 03:14 05/26/22 03:25 05/26/22 06:00 Temperature 97.3 F L 97.6 F Pulse Rate 68 71 60 Respiratory Rate 18 14 Blood Pressure 131/75 146/83 H 109/65 Pulse Oximetry 98 96 Oxygen Flow Rate 0 0 Oxygen Delivery Method Room Air Oxygen Flow Rate 0 Narrative Exam Narrative: General: Patient is a well-developed, well-nourished female in no distress at this time. HEENT: Normocephalic, atraumatic, extraocular muscles intact, oral pharynx is clear and mucous membranes are moist. Neck is supple and symmetric, trachea is midline, no adenopathy, no thyroid enlargement, nontender, no masses palpated. Negative for JVD Chest: Normal AP diameter and contour without kyphoscoliosis, no nasal flaring, retractions, or tachypneic labored Lungs: Auscultation of all lung kumar are clear without adventitious sounds, wheezes, rhonchi, or rales. Cardio: regular rate and rhythm without, rubs, or gallops, no carotid bruit, no cardiac pulsations present. murmur Abdomen: Soft nontender, negative for organomegaly, or masses. Bowel sounds are present in all 4 quadrants without guarding or rebound, no CVA tenderness. Musculoskeletal: Muscle strength and tone are equal within normal limits, no deformity, crepitus, effusions, cyanosis, clubbing or edema present. Full range of motion intact radial and pedal pulses are normal. Skin: Warm dry and intact without rashes, ulcerations or petechiae. Neuro: Alert and orientated x3, strength is +5/5 in all extremities, sensation to touch intact, no gross deficits noted of cranial nerves. Psych: Patient has a well-kept appearance, appropriate affect, mental status attitude thought context and judgment are appropriate for age. Objective Labs Result Diagrams: 05/25/22 20:00 05/25/22 20:00 Labs: Laboratory Results - last 24 hr 05/25/22 05/25/22 05/26/22 20:00 20:00 00:15 WBC 7.3 RBC 4.99 Hgb 15.0 Hct 44.8 MCV 89.8 MCH 30.2 MCHC 33.6 RDW 13.2 Plt Count 209 Neut % (Auto) 76.8 H Lymph % (Auto) 14.8 L Ida % (Auto) 7.4 Eos % (Auto) 0.4 L Baso % (Auto) 0.6 Neut # (Auto) 5600 Lymph # (Auto) 1100 Ida # (Auto) 500 Eos # (Auto) 0 Baso # (Auto) 0 PT INR APTT Sodium 138 Potassium 4.3 Chloride 100 Carbon Dioxide 26 BUN 12 Creatinine 0.57 Estimated GFR > 60 BUN/Creatinine Ratio 21.1 Glucose 119 H Calcium 10.0 Magnesium 1.9 Total Bilirubin 0.5 AST 64 H ALT 107 H Alkaline Phosphatase 64 Total Creatine Kinase 97 CK-MB (CK-2) TNP CK-MB (CK-2) Rel Index TNP Troponin I 0.026 NT-Pro-B Natriuret Pep 130 H Total Protein 9.0 H Albumin 5.1 H Globulin 3.9 Albumin/Globulin Ratio 1.3 Triglycerides Cholesterol LDL Cholesterol, Calc HDL Cholesterol Lipase 155 TSH SARS-CoV-2 (PCR) 05/26/22 05/26/22 05/26/22 00:15 00:22 01:26 WBC RBC Hgb Hct MCV MCH MCHC RDW Plt Count Neut % (Auto) Lymph % (Auto) Ida % (Auto) Eos % (Auto) Baso % (Auto) Neut # (Auto) Lymph # (Auto) Ida # (Auto) Eos # (Auto) Baso # (Auto) PT INR APTT Sodium Potassium Chloride Carbon Dioxide BUN Creatinine Estimated GFR BUN/Creatinine Ratio Glucose Calcium Magnesium Total Bilirubin AST ALT Alkaline Phosphatase Total Creatine Kinase CK-MB (CK-2) CK-MB (CK-2) Rel Index Troponin I 0.057 H NT-Pro-B Natriuret Pep Total Protein Albumin Globulin Albumin/Globulin Ratio Triglycerides 111 Cholesterol 269 H LDL Cholesterol, Calc 185 H HDL Cholesterol 62 H Lipase TSH SARS-CoV-2 (PCR) Negative 05/26/22 05/26/22 05/26/22 04:55 04:55 04:55 WBC RBC Hgb Hct MCV MCH MCHC RDW Plt Count Neut % (Auto) Lymph % (Auto) Ida % (Auto) Eos % (Auto) Baso % (Auto) Neut # (Auto) Lymph # (Auto) Ida # (Auto) Eos # (Auto) Baso # (Auto) PT 12.7 INR 1.1 APTT 28 Sodium Potassium Chloride Carbon Dioxide BUN Creatinine Estimated GFR BUN/Creatinine Ratio Glucose Calcium Magnesium Total Bilirubin AST ALT Alkaline Phosphatase Total Creatine Kinase CK-MB (CK-2) CK-MB (CK-2) Rel Index Troponin I 0.065 H NT-Pro-B Natriuret Pep Total Protein Albumin Globulin Albumin/Globulin Ratio Triglycerides Cholesterol LDL Cholesterol, Calc HDL Cholesterol Lipase TSH 0.76 SARS-CoV-2 (PCR) [facility] Medical History Colostomy in place (01/15/19) Diverticulosis Heart murmur Surgical History Hx of appendectomy (~1979) Hx of tubal ligation (~2002) Previous section (~1982) S/P colostomy takedown (04/23/19) S/P laparoscopic procedure (~02/28/18) Family History Mother Diabetes mellitus Social History marital status: household members: spouse occupational status: employed Smoking Status: Never smoker alcohol intake: current substance use type: does not use Discharge Plan Discharge Plan Patient Disposition: Home Provider Discharge Comment: You were admitted for very high blood pressure. All of your workup including echo of heart and head scan were normal. We aren't too sure what may have caused this, but you likely do have some high blood pressure which may need to take meds for in the future. Discharge orders & Medications Prescriptions: Continued multivitamin Capsule 1 cap PO DAILY Follow up/Referrals: Taya Ribeiro ARNP [Primary Care Provider] - 2 Weeks Visit Report/Discharge Packet Instructions: High Blood Pressure, Pheochromocytoma, Lifestyle Habits May Lower Risk of Hypertension in Women Discharge Data Primary Care Provider: Taya Ribeiro Attending Provider: Cony Jordan VTE Deep Vein Thrombosis/Pulmonary Embolism Present on Admission: No
[2022-05-26] MEDS: SODIUM CHLORIDE 0.9% FLUSH 10 ML IV (08:49)
--- NOTE | 2022-05-26 10:31 | PC.NURSE ---
Day shift: Pt off unit for CT at approx 1030.
--- NOTE | 2022-05-26 14:14 | DIET.CONS ---
Addendum entered by Irma Saenz 05/26/22 16:39: RD agrees with student assessment Original Note: Dietary Consultation Note Admission Date: 05/26/2022 03:22 Assessment: Pt is a 56 yo F admitted for elevated BP and headache, referred to RD for HTN and BMI 30.7. Per H&P, pt reported headache during PT and was recc to go to ED. ED BP = 203/117, 179/79, 173/79. H&P noted significant abdominal surgeries including appendectomy, , tubal ligation, colostomy, and laproscopy. Jojo procedure performed r/t perforated diverticula. Labs include Chol 269 (high), LDL 185 (high). internet architect saw pt at bedside. Pt was very receptive to conversation about MNT. Pt cooks often and reports not having high sodium intake. Pt reports not adding salt to foods, not eating out often, and not using [place] or other processed condiments. Diet recall: B: 2 cups of coffee, 16 oz water with 2 Tbsp psyllium fiber L: Protein shake with spinach, cilantro, cucumbers, plain [place] yogurt, almond milk, and Orgain protein powder D: Beef enchiladas with rice and beans and mixed vegetables, meatloaf, or Ragu pasta sauce with pasta Ht: 152.4 cm Wt: 71.214 kg BMI: 30.7 Last BM: () MNA: 13 Michael Score: 20 Diet: 05/26/22 Breakfast Heart Healthy Diet Diet Modifications: Nutrition Percent Meal Consumed 75% 05/26/22 09:30 Percent Meal Consumed 1/2 sandwich 05/26/22 04:20 Labs: RBC 4.99 X10^6/uL (4.0-5.2) 05/25/22 20:00 Hgb 15.0 g/dL (12.0-16.0) 05/25/22 20:00 Hct 44.8 % (36-46) 05/25/22 20:00 Creatinine 0.57 mg/dL (0.52-1.04) 05/25/22 20:00 NT-Pro-B Natriuret Pep 130 pg/mL (<125) H 05/26/22 00:15 Nutrition Diagnosis: 1. Excessive intake of sodium r/t high intake of convenience foods aeb BP 203/117, 179/79, 173/79 and pt reported diet recall. 2. Excessive saturated fat intake r/t high intake of beef aeb Chol 269 and pt reported diet recall. Interventions: 1. To support blood pressure health, provided low sodium (2,000 mg/d) diet education. Collaborated with pt to determine common foods that may provide sodium in the diet. Discussed alternatives to purchased pasta sauce, low-sodium canned beans, marinades, and bouillon. Recommended reducing or eliminating caffeine intake. 2. To support heart health and weight management, provided heart healthy diet recommendations on low sodium, low saturated fat, and high fiber. Collaborated with pt on with alternatives to items listed in diet recall, including using lean poultry or fish in lieu of beef, reduce sodium intake, and increase fiber intake by increasing intake of vegetables, beans, and whole grains. Monitoring/Evaluations: Consult JORGE LUIS avery Electronically Signed by: Natalia Espinosa 05/26/22 14:14 Clinical Dietitian [address] [id number]
--- NOTE | 2022-05-26 15:34 | PC.NURSE ---
Day shift: Paperwork signed and all questions answered. Last BP 132/72. No c/o headache. Pt's Spouse is driving her home. No new MD scripts. Pt encouraged to f/u with PCP on Sunday morning. Also encouraged to check BP 3 times a day and write it down for her MD. She is hesitant to start any BP meds at this time. Encouraged to eat healthy and exercise also. Left unit via WC at approx 1537. TUYET Chris is taking her to the car.
[2022-05-27 07:36] LABS: HBsAg Screen Negative (Negative); Hepatitis A Antibody IgM Negative (Negative); Hepatitis B Core Antibody IgM Negative (Negative); Hepatitis C Antibody <0.1 s/co ratio (0.0-0.9)
== END 2022-05-26 15:38 | disposition home or self-care (01) ==
LOC: ED 05-26 01:09 → AC 05-26 03:24
PROVIDERS: Student in an Organized Health Care Education/Training Program; Admitting Provider Nurse Practitioner Family; Emergency Provider Emergency Medicine; PCP Internal Medicine; Referring Provider Emergency Medicine; Visit Provider Nurse Practitioner Family
DX: R51.9 Headache, unspecified (principal); R01.1 Cardiac murmur, unspecified; I16.0 Hypertensive urgency; R77.8 Other specified abnormalities of plasma proteins; E66.3 Overweight; Z20.822 Contact with and (suspected) exposure to COVID-19
CPT/HCPCS: 36415; 70450; 71045; 74176; 80053; 80061; 80074; 82550; 82553; 83690; 83735; 83880; 84443; 84484; 85025; 85610; 85730; 87635; 93005; 93010; 93306; 96374; 96375; 99285; C9803; G0378; J2270; J2405

== ENCOUNTER 2022-05-31 11:26 | Emergency (ER) | payer OTHER, MEDICAID, SELFPAY ==
[2022-05-26 04:49] VITALS: BMI 30.7
[2022-05-31] VITALS (23 sets, daily range): BP systolic 151–191; BP diastolic 77–98; PULSE 61–76; RESP 14–23; TEMP 37.1; O2SAT 94–100; BMI 30.4
--- NOTE | 2022-05-31 11:45 | DI.RAD.S_ITS ---
PROCEDURE: XR CHEST 1V INDICATIONS: chest pain TECHNIQUE: One view of the chest was acquired. COMPARISON: [facility], CR, XR CHEST 1V, 05/25/2022, 23:51. FINDINGS: Surgical changes and devices: None. Lungs and pleura: No dense consolidation or pleural effusion. Low lung volumes. Mediastinum: Heart size is at the upper limit of normal. Bones and chest wall: No suspicious bony lesions. Overlying soft tissues appear unremarkable. IMPRESSION: No acute radiographic abnormality. Low lung volumes. Dictated by: Dash Mckenzie M.D. on 05/31/2022 at 12:13 Approved by: Dash Mckenzie M.D. on 05/31/2022 at 12:13
--- NOTE | 2022-05-31 11:54 | DI.CT.S_ITS ---
PROCEDURE: CT ANGIO HEAD AND NECK INDICATIONS: worst headache of life, sudden, HTN TECHNIQUE: Pre-contrast 4.5 mm thick sections acquired from the foramen magnum to the vertex. After the administration of intravenous contrast, 1 mm thick sections acquired from the aortic arch through the [place]. Post-contrast 4.5 mm thick sections then re-acquired from the foramen magnum to the vertex. 3-dimensional bzzhkyv-dkmlsnyoz-qkgaoqdant (MIP) and/or volume rendering reformats were acquired of the central intracranial vasculature and neck separately. For radiation dose reduction, the following was used: automated exposure control, adjustment of mA and/or kV according to patient size. COMPARISON: None. FINDINGS: Image quality: Excellent CSF spaces: Basal cisterns are patent. Lateral ventricles are symmetric. Volume: Periventricular white matter hypoattenuation is commonly seen with chronic small vessel disease. Volume loss is present. These findings are mild Brain: No intracranial hemorrhage. Henry-white differentiation is grossly maintained. Craniofacial structures: No displaced fracture. Sinuses are clear. Orbits are intact. Image quality: Excellent Head angiography: Anterior circulation: ICAs: Mild bilateral cavernous carotid calcifications. ACAs: No occlusion. MCAs: No occlusion. AComm: No aneurysm Venous sinuses: patent There are some areas of narrowing, for example in the M2 branches bilaterally with distal reconstitution (10/104, 10/107). Posterior circulation: Dominance: Slight right Vertebral arteries: No stenosis or occlusion. No aneurysm. Basilar artery: Unremarkable PComms: No aneurysm chalk machine operator: Unremarkable Neck angiography: Aortic arch and subclavian arteries: Normal flow, no aneurysm. CCAs: No stenosis, occlusion, or aneurysm. ICA origins (by NASCET criteria): No hemodynamically significant narrowing. ICAs: No stenosis, occlusion or aneurysm. ECAs: Origins are patent. Vertebral arteries: Unremarkable Soft tissues: No significant mass, aneurysm, or lymphadenopathy Lung apices: No pneumothorax Bones: No acute or suspicious abnormality. IMPRESSION: Irregularity of some small intracranial branch vessels, most notably the M2 branches bilaterally as described above. These are unlikely to be thromboembolic and may represent vasospasm, for example in the setting of RCVS. Correlate with any inciting factors. No acute intracranial hemorrhage is seen. Consider MRI to further evaluate for any parenchymal abnormalities if indicated. Any quantitative measurements of stenosis were performed using NASCET criteria. Dictated by: Dash Mckenzie M.D. on 05/31/2022 at 12:39 Approved by: Dash Mckenzie M.D. on 05/31/2022 at 12:51
--- NOTE | 2022-05-31 11:54 | ED.GENADULT ---
HPI - General Adult General Chief complaint: Hypertension Stated complaint: HTN Time Seen by Provider: 05/31/22 11:54 Source: patient, family and EMS Mode of arrival: EMS History of Present Illness HPI narrative: 56-year-old female nonsmoker with recent diagnosis of elevated blood pressure and headache had a hospitalization for what was considered a hypertensive emergency and was discharged after thorough evaluation. She had presented initially with a relatively sudden severe occipital headache and was found to have blood pressure over 200. Her symptoms were controlled, she was admitted and also found to have a slight troponin leak that was thought to he would relatively insignificant in the big picture. She was discharged home without antihypertensive medications and had been in her normal state of health and woke up earlier this morning with a similar type head and neck pain that brought her in a few days ago. She denies any recent trauma or injury. She is had no fever or chills. She denies any sore throat, cough or chest pain. She denies blurred vision or trouble with speech. She has pain that starts in the muscles of her neck that feel very tight and tender and then developed a headache that spreads across to the front of her head. She has pain with any motion of her neck. She denies any numbness, tingling or weakness of her upper extremities. She has no pain in her low back, has had no fever and denies lower extremity numbness, tingling or weakness. She was at her primary care provider's office doing a follow-up and during her evaluation had severe headache and was found to have elevated blood pressure again and was referred here for evaluation. She was given morphine EN route by paramedics. Related Data Home Medications Medication Instructions Recorded Confirmed multivitamin 1 cap PO DAILY 04/09/19 05/26/22 Previous Rx's Medication Instructions Recorded diazepam 2 mg tablet (Valium) 2 mg PO BID-TID PRN muscle spasm 05/31/22 #15 tabs ketorolac 10 mg tablet 10 mg PO Q6H PRN pain #14 tabs 05/31/22 lidocaine 5 % topical patch 1 patch topical DAILY #15 ea 05/31/22 (Lidoderm) ondansetron 4 mg disintegrating 4 mg PO TID-QID PRN nausea and 05/31/22 tablet vomiting #10 tabs Allergies Allergy/AdvReac Type Severity Reaction Status Date / Time No Known Drug Allergies Allergy Verified 04/22/20 13:20 Review of Systems Review of Systems Narrative: GENERAL: Denies chills, fatigue, malaise, fever, sweats. HEENT: Denies sinus pain, ear pain, sore throat, difficulty swallowing, dizziness. RESPIRATORY: Denies dyspnea, cough, wheezing, hemoptysis, sputum. CARDIOVASCULAR: Denies chest pain, palpitations, orthopnea, edema, GASTROINTESTINAL: Denies nausea, vomiting, abdominal pain, diarrhea, constipation, melena. : Denies dysuria, frequency, incontinence, hematuria, urinary retention. MUSCULOSKELETAL: See HPI SKIN: Denies rash, skin lesions, or other NEUROLOGIC: See HPI PSYCHIATRIC: No concerning psychosocial issues. 12 point review of systems is negative except for those stated above Patient History Medical History (Updated 05/31/22 @ 16:07 by Fernando Bonilla DO) Colostomy in place (01/15/19) Diverticulosis Heart murmur Surgical History Hx of appendectomy (~1979) Hx of tubal ligation (~2002) Previous section (~1982) S/P colostomy takedown (04/23/19) S/P laparoscopic procedure (~02/28/18) Family History Mother Diabetes mellitus Social History marital status: household members: spouse occupational status: employed Smoking Status: Never smoker alcohol intake: current substance use type: does not use Smoking Status: Never smoker alcohol intake frequency: holidays/special occasions only Substance Use Type: does not use Exam Narrative Exam Narrative: GENERAL: [56] year old patient appears stated age. Well-developed patient, in mild distress. HEAD: Atraumatic. Normocephalic. EYES: Pupils equal round and reactive. Extraocular motions intact. No scleral icterus. No injection or drainage. ENT: Nose without bleeding, purulent drainage. Throat without erythema, tonsillar hypertrophy or exudate. Airway patent. NECK: Trachea midline. Non tender CARDIOVASCULAR: Regular rate and rhythm without murmurs, gallops, or rubs. RESPIRATORY: Clear to auscultation. Breath sounds equal bilaterally. No wheezes, rales, or rhonchi. GASTROINTESTINAL: Abdomen soft, non-tender, nondistended. EXTREMITIES: No edema or joint tenderness. BACK: Nontender without deformity or crepitance. No flank tenderness. NEURO: AOx3. SKIN: No rash or erythema of visible areas Initial Vital Signs Initial Vital Signs: Vital Signs Temperature 98.7 F 05/31/22 11:25 Pulse Rate 74 05/31/22 11:25 Respiratory Rate 18 05/31/22 11:25 Blood Pressure 177/98 H 05/31/22 11:25 Pulse Oximetry 100 05/31/22 11:25 Oxygen Delivery Method 05/31/22 11:25 Course Orders Ordered: ED Orders 05/31/22 11:43 EKG-12 Lead Stat 05/31/22 11:45 XR chest 1V Stat 05/31/22 11:52 Complete Blood Count AUTO DIFF Stat Comprehensive Metabolic Panel Stat Lipase Stat Magnesium Stat Troponin & CK Cardiac Panel Stat 05/31/22 11:54 CT angio head and neck Stat 05/31/22 12:01 COVID19 -Nasal RAPID/Pre-Proc Stat Discontinued Medications Diazepam (Diazepam 10 Mg/2 Ml Syringe) 2 mg IV NOW ONE Stop: 05/31/22 14:15 Last Admin: 05/31/22 14:42 Dose: 2 mg Documented By: ERNST Ketorolac Tromethamine (Ketorolac 30 Mg/Ml Vial) 15 mg IV NOW ONE Stop: 05/31/22 14:15 Last Admin: 05/31/22 14:41 Dose: 15 mg Documented By: ERNST Lidocaine (Lidocaine Patch 1 Each Adh..Patch) 1 each TOP NOW ONE Stop: 05/31/22 14:15 Last Admin: 05/31/22 14:41 Dose: 1 each Documented By: ERNST Vital Signs Vital signs: Vital Signs - 8 hr 05/31/22 11:25 05/31/22 11:52 05/31/22 11:55 Temperature 98.7 F Pulse Rate 74 63 76 Respiratory Rate 18 22 Blood Pressure 177/98 H Pulse Oximetry 100 97 Oxygen Delivery Method Room Air 05/31/22 11:55 05/31/22 12:01 05/31/22 12:15 Temperature Pulse Rate 64 74 Respiratory Rate 23 Blood Pressure 184/89 H Pulse Oximetry 98 97 Oxygen Delivery Method 05/31/22 12:15 05/31/22 12:20 05/31/22 12:18 Temperature Pulse Rate 71 71 Respiratory Rate 20 Blood Pressure 190/79 H 188/85 H Pulse Oximetry 97 97 Oxygen Delivery Method Room Air 05/31/22 12:18 05/31/22 12:25 05/31/22 12:25 Temperature Pulse Rate 70 Respiratory Rate 22 Blood Pressure 188/85 H 184/84 H Pulse Oximetry 98 Oxygen Delivery Method 05/31/22 12:30 05/31/22 12:30 05/31/22 12:45 Temperature Pulse Rate 68 67 Respiratory Rate 19 23 Blood Pressure 175/80 H Pulse Oximetry 95 96 Oxygen Delivery Method 05/31/22 12:45 05/31/22 13:00 05/31/22 13:00 Temperature Pulse Rate 72 Respiratory Rate 20 Blood Pressure 177/83 H 167/84 H Pulse Oximetry 94 Oxygen Delivery Method 05/31/22 13:15 05/31/22 13:15 05/31/22 13:30 Temperature Pulse Rate 76 Respiratory Rate 23 Blood Pressure 179/84 H 179/86 H Pulse Oximetry 97 Oxygen Delivery Method 05/31/22 13:30 05/31/22 13:45 05/31/22 13:45 Temperature Pulse Rate 66 66 Respiratory Rate 19 18 Blood Pressure 176/86 H Pulse Oximetry 94 96 Oxygen Delivery Method 05/31/22 14:00 05/31/22 14:00 05/31/22 14:16 Temperature Pulse Rate 67 65 Respiratory Rate 18 18 Blood Pressure 170/79 H Pulse Oximetry 96 99 Oxygen Delivery Method 05/31/22 14:16 05/31/22 14:30 05/31/22 14:30 Temperature Pulse Rate 61 Respiratory Rate 19 Blood Pressure 185/87 H 180/88 H Pulse Oximetry 98 Oxygen Delivery Method 05/31/22 14:45 05/31/22 14:45 05/31/22 15:00 Temperature Pulse Rate 68 Respiratory Rate 21 Blood Pressure 184/86 H 191/85 H Pulse Oximetry 98 Oxygen Delivery Method 05/31/22 15:00 Temperature Pulse Rate 69 Respiratory Rate 16 Blood Pressure Pulse Oximetry 95 Oxygen Delivery Method Medical Decision Making Lab Data Result diagrams: 05/31/22 11:52 05/31/22 11:52 Labs: Lab Results 05/31/22 05/31/22 05/31/22 Range/Units 11:52 11:52 12:01 WBC 5.1 (4.5-11.0) X10^3/uL RBC 4.85 (4.0-5.2) X10^6/uL Hgb 14.8 (12.0-16.0) g/dL Hct 43.4 (36-46) % MCV 89.4 (80-100) fL MCH 30.6 (26-34) PG MCHC 34.2 (30-36) % RDW 12.9 (11.6-14.8) % Plt Count 187 (150-400) X10^3/uL Neut % (Auto) 55.4 (50-75) % Lymph % (Auto) 32.8 (25-40) % Stewart % (Auto) 10.0 (3-14) % Eos % (Auto) 0.9 L (2-4) % Baso % (Auto) 0.9 (0-2) % Neut # (Auto) 2800 (0271-9399) /uL Lymph # (Auto) 1700 (4521-7220) /uL Stewart # (Auto) 500 (0-900) /uL Eos # (Auto) 0 (0-450) /uL Baso # (Auto) 0 (0-100) /uL Sodium 140 (137-145) mmol/L Potassium 3.8 (3.4-5.1) mmol/L Chloride 103 (98-107) mmol/L Carbon Dioxide 22 (22-32) mmol/L BUN 10 (7-17) mg/dL Creatinine 0.53 (0.52-1.04) mg/dL Estimated GFR > 60 (>60) mL/min BUN/Creatinine Ratio 18.9 (6-22) Glucose 121 H (70-100) mg/dL Calcium 9.3 (8.4-10.2) mg/dL Magnesium 1.9 (1.6-2.3) mg/dL Total Bilirubin 0.6 (0.2-1.3) mg/dL AST 68 H (14-36) IU/L ALT 109 H (<35) IU/L Alkaline Phosphatase 64 (38-126) U/L Total Creatine Kinase 74 (30-135) U/L CK-MB (CK-2) TNP CK-MB (CK-2) Rel Index TNP Troponin I < 0.012 (0.01-0.034) ng/mL Total Protein 8.2 (6.3-8.2) g/dL Albumin 4.8 (3.5-5.0) g/dL Globulin 3.4 (1.7-4.1) g/dL Albumin/Globulin Ratio 1.4 (1.0-2.8) Lipase 154 (23-300) U/L SARS-CoV-2 (PCR) Negative (Negative) Imaging Data CTA - brain/neck: Radiologist's Impression: [address] [address] [address] Scan Report Signed Patient: Berta Yusuf MR#: [id number] : 1965 Acct:[id number] Age/Sex: 56 / F Date of Service: 05/31/22 Loc: ED Accession Number: [id number] ?? Procedure: CT angio head and neck Ordering Provider: Fernando Bonilla D.O. PROCEDURE:? CT ANGIO HEAD AND NECK ? INDICATIONS:? worst headache of life, sudden, HTN ? TECHNIQUE:? Pre-contrast 4.5 mm thick sections acquired from the foramen magnum to the vertex.? After the administration of intravenous contrast, 1 mm thick sections acquired from the aortic arch through the [place] of [place].? Post-contrast 4.5 mm thick sections then re-acquired from the foramen magnum to the vertex.? 3-dimensional aggwsvv-eldsmlkjp-pisngzfnyz (MIP) and/or volume rendering reformats were acquired of the central intracranial vasculature and neck separately. For radiation dose reduction, the following was used:? automated exposure control, adjustment of mA and/or kV according to patient size.? ? COMPARISON:? None. ? FINDINGS:? Image quality: Excellent ? CSF spaces: Basal cisterns are patent. Lateral ventricles are symmetric. Volume:? Periventricular white matter hypoattenuation is commonly seen with chronic small vessel disease. Volume loss is present. These findings are mild ? Brain: No intracranial hemorrhage. Henry-white differentiation is grossly maintained. ? Craniofacial structures: No displaced fracture. Sinuses are clear. Orbits are intact. Image quality: Excellent ? Head angiography: ? Anterior circulation: ICAs:? Mild bilateral cavernous carotid calcifications. ACAs:? No occlusion. MCAs:? No occlusion. AComm: No aneurysm Venous sinuses: patent ? There are some areas of narrowing, for example in the M2 branches bilaterally with distal reconstitution (, ). ? Posterior circulation: Dominance:? Slight right Vertebral arteries: No stenosis or occlusion. No aneurysm. Basilar artery: Unremarkable PComms: No aneurysm pollution control engineer: Unremarkable ? Neck angiography: ? Aortic arch and subclavian arteries: Normal flow, no aneurysm. CCAs: No stenosis, occlusion, or aneurysm. ICA origins (by NASCET criteria): No hemodynamically significant narrowing. ICAs: No stenosis, occlusion or aneurysm. ECAs: Origins are patent. Vertebral arteries: Unremarkable ? Soft tissues: No significant mass, aneurysm, or lymphadenopathy Lung apices: No pneumothorax Bones: No acute or suspicious abnormality. ? ? IMPRESSION:? Irregularity of some small intracranial branch vessels, most notably the M2 branches bilaterally as described above.? These are unlikely to be thromboembolic and may represent vasospasm, for example in the setting of RCVS.? Correlate with any inciting factors.? No acute intracranial hemorrhage is seen.? Consider MRI to further evaluate for any parenchymal abnormalities if indicated. ? Any quantitative measurements of stenosis were performed using NASCET criteria.? ? ? Dictated by: Dash Mckenzie M.D. on 05/31/2022 at 12:39 ? ? Approved by: Dash Mckenzie M.D. on 05/31/2022 at 12:51 ? MDM Narrative Medical decision making narrative: Patient with severe neck pain followed by headache and subsequent elevated blood pressure has significant if not complete resolution of symptoms after above-stated therapies. Advanced imaging shows no subarachnoid hemorrhage or aneurysmal change, there is some irregularity in the blood vessels suggesting perhaps vasospasm. Patient has no blurred vision or trouble speech nor extremity numbness, weakness or tingling. Patient feels significant improvement, has near complete range of motion of her neck and blood pressure has improved. Other diagnoses such as meningitis considered but thought unlikely given history, physical, response to therapies. Extensive return precautions discussed and questions answered to her apparent satisfaction Headache considerations include, but not limited to: Subarachnoid hemorrhage, but unlikely as patient denies sudden onset of pain, not worst of life, or neck pain Meningitis considered, but thought unlikely given lack of Brudzinski's, Kernig's sign, altered mental status or fever Giant cell arteritis considered, but thought unlikely given lack of unilateral findings, pain in christianity, vision change HTN Emergency considered, but thought unlikely given normal vitals Other serious diagnoses considered unlikely given lack of red flag findings such as sudden onset, increasing frequency, immunocompromise, systemic signs (fever, chills, stiff neck, or rash), focal neurologic findings, trauma, blood thinners, etc. Discharge Plan Departure Patient Disposition: Home Clinical Impression: Acute tension headache, Muscle spasms of neck Instructions: DI for High Blood Pressure, DI for Headache Activity Restrictions/Additional Instructions: *You have been diagnosed with [headache and neck spasm. As we discussed it seems most likely that your elevated blood pressure is due to being in pain and not in fact a cause of your headache. Your history and physical exam are reassuring as is your response to the medications we gave, I am very pleased that your feeling so much better.] *What to do: *Please continue to take your regular medications as directed. [x ] New medication prescriptions sent to your pharmacy: [facility]] [ ] New medication written as a paper prescription [ ] No new medications given *Please follow up with your primary care provider in 2-3 days, call for an appointment. Let them know you were seen in the Emergency Department and that we ask that you be seen in follow up. We will electronically transmit a record of today's note if your PCP is in our system *If you do not have a primary care provider please contact [facility] Resource line at [phone]. They will ask some questions about your medical history and help get you set up with a doctor in the community. *Return to Emergency Department if you should have any new, worsening or concerning symptoms, such as [fever greater than 101 F, shaking chills, worsening pain, persistent vomiting or other bothersome symptoms] Prescriptions: New ketorolac 10 mg tablet 10 mg PO Q6H PRN (Reason: pain) Qty: 14 0RF diazepam [Valium] 2 mg tablet 2 mg PO BID-TID PRN (Reason: muscle spasm) Qty: 15 0RF lidocaine [Lidoderm] 5 % adhesive patch,medicated 1 patch TOP DAILY Qty: 15 0RF Rx Instructions: leave on most painful area for 12 hrs ondansetron 4 mg tablet,disintegrating 4 mg PO TID-QID PRN (Reason: nausea and vomiting) Qty: 10 0RF No Action multivitamin Capsule 1 cap PO DAILY Referrals: Taya Ribeiro ARNP [Primary Care Provider] -
[2022-05-31 12:01] LABS: Add Manual Diff / Slide Review NO; Basophils Absolute Auto 0 /uL (0-100); Basophils Percent Auto 0.9 % (0-2); Eosinophils Absolute Auto 0 /uL (0-450); Eosinophils Percent Auto 0.9 % (2-4); Hematocrit 43.4 % (36-46); Hemoglobin 14.8 g/dL (12.0-16.0); Lymphocytes Absolute Auto 1700 /uL (1100-4500); Lymphocytes Percent Auto 32.8 % (25-40); Mean Corpuscular HGB Conc 34.2 % (30-36); Mean Corpuscular Hemoglobin 30.6 PG (26-34); Mean Corpuscular Volume 89.4 fL (80-100); Monocytes Absolute Auto 500 /uL (0-900); Neutrophils Absolute Auto 2800 /uL (1500-7000); Neutrophils Percent Auto 55.4 % (50-75); Platelet Count 187 X10^3/uL (150-400); Red Blood Cell Count 4.85 X10^6/uL (4.0-5.2); Red Cell Distribution Width 12.9 % (11.6-14.8); White Blood Cell Count 5.1 X10^3/uL (4.5-11.0)
[2022-05-31 12:05] LABS: COVID19 -Nasal RAPID Negative (Negative)
[2022-05-31 12:13] LABS: Alanine Aminotransferase 109 IU/L (<35); Albumin 4.8 g/dL (3.5-5.0); Albumin Globulin Ratio 1.4 (1.0-2.8); Alkaline Phosphatase 64 U/L (38-126); Aspartate Aminotransferase 68 IU/L (14-36); BUN Creatinine Ratio 18.9 (6-22); Bilirubin Total 0.6 mg/dL (0.2-1.3); Blood Urea Nitrogen 10 mg/dL (7-17); Calcium 9.3 mg/dL (8.4-10.2); Carbon Dioxide 22 mmol/L (22-32); Chloride 103 mmol/L (98-107); Creatine Kinase 74 U/L (30-135); Estimated Glomerular Filt Rate > 60 mL/min (>60); Globulin 3.4 g/dL (1.7-4.1); Glucose 121 mg/dL (70-100); HEMOLYSIS < 15 (0-50); Lipase 154 U/L (23-300); Magnesium 1.9 mg/dL (1.6-2.3); Potassium 3.8 mmol/L (3.4-5.1); Sodium 140 mmol/L (137-145); Total Protein 8.2 g/dL (6.3-8.2)
[2022-05-31 12:24] LABS: Troponin I < 0.012 ng/mL (0.01-0.034)
--- NOTE | 2022-05-31 13:24 | PC.NURSE ---
pt does have thin lines up inside of lt arm, from bp cuff, pt has a few on the rt arm as well. pt last bp was 179 sys.
[2022-05-31] MEDS: KETOROLAC 30 MG/ML VIAL 15 MG IV (14:41)
[2022-05-31] MEDS: LIDOCAINE PATCH 1 EACH ADH..PATCH TOP (14:41)
[2022-05-31] MEDS: diazePAM 10 MG/2 ML SYRINGE 2 MG IV (14:42)
== END 2022-05-31 16:23 | disposition home or self-care (01) ==
PROVIDERS: Emergency Provider Emergency Medicine; PCP Internal Medicine
DX: G44.209 Tension-type headache, unspecified, not intractable (principal); M62.838 Other muscle spasm; I10 Essential (primary) hypertension; Z20.822 Contact with and (suspected) exposure to COVID-19
CPT/HCPCS: 36415; 70496; 70498; 71045; 80053; 82550; 83690; 83735; 84484; 85025; 87635; 93005; 96374; 96375; 99284; C9803; J1885; J3360; Q9967

== ENCOUNTER 2022-06-04 16:40 | Emergency (ER) | payer OTHER, MEDICAID, SELFPAY ==
[2022-05-26 04:49] VITALS: BMI 30.7
[2022-06-04] VITALS (9 sets, daily range): BP systolic 141–174; BP diastolic 70–84; PULSE 64–84; RESP 16–22; TEMP 36.4–36.6; O2SAT 97–99; BMI 30.4
--- NOTE | 2022-06-04 17:30 | ED.HA ---
HPI - Headache General Chief Complaint: Headache Stated Complaint: Head pain, Neck problems Time Seen by Provider: 06/04/22 17:07 Mode of arrival: Family Vehicle History of Present Illness HPI Narrative: 56-year-old female nonsmoker with recent diagnosis of elevated blood pressure and headache had a hospitalization for what was considered a hypertensive emergency and was discharged after thorough evaluation was seen again by myself on 05/31 for recurrence of symptoms. She had another thorough evaluation and in the end had a near complete resolution of symptoms after treating neck spasm. She had been doing fine and well at home but sounds like symptoms ramp up again when she ran out of her meds over the past day or 2. She is had no fever chills denies any injury, states that her blood pressure has been well controlled until her pain flares up at which point her blood pressure goes back up into the 170s. She has not seen her primary care provider. She has pain that starts in the paraspinal musculature of her the right side of her neck and becomes quite tight and then the pain, like prior, spreads up and over her scalp. She denies any blurred vision or trouble with speech. She is not dizzy nor weak or lightheaded. She denies any numbness, tingling or weakness. Related Data Home Medications Medication Instructions Recorded Confirmed multivitamin 1 cap PO DAILY 04/09/19 05/26/22 Previous Rx's Medication Instructions Recorded diazepam 2 mg tablet (Valium) 2 mg PO BID-TID PRN muscle spasm 05/31/22 #15 tabs ketorolac 10 mg tablet 10 mg PO Q6H PRN pain #14 tabs 05/31/22 lidocaine 5 % topical patch 1 patch topical DAILY #15 ea 05/31/22 (Lidoderm) ondansetron 4 mg disintegrating 4 mg PO TID-QID PRN nausea and 05/31/22 tablet vomiting #10 tabs amlodipine 5 mg tablet 5 mg PO DAILY #30 tabs 06/04/22 diazepam 2 mg tablet (Valium) 2 mg PO BID-TID PRN muscle spasm 06/04/22 #20 tabs ketorolac 10 mg tablet 10 mg PO Q6H PRN pain #20 tabs 06/04/22 lidocaine 5 % topical patch 1 patch topical DAILY #15 ea 06/04/22 (Lidoderm) Allergies Allergy/AdvReac Type Severity Reaction Status Date / Time No Known Drug Allergies Allergy Verified 04/22/20 13:20 Review of Systems Review of Systems Narrative: GENERAL: See HPI HEENT: Denies sinus pain, ear pain, sore throat, difficulty swallowing, dizziness. RESPIRATORY: Denies dyspnea, cough, wheezing, hemoptysis, sputum. CARDIOVASCULAR: Denies chest pain, palpitations, orthopnea, edema, GASTROINTESTINAL: Denies nausea, vomiting, abdominal pain, diarrhea, constipation, melena. : Denies dysuria, frequency, incontinence, hematuria, urinary retention. MUSCULOSKELETAL: See HPI SKIN: Denies rash, skin lesions, or other NEUROLOGIC: See HPI PSYCHIATRIC: No concerning psychosocial issues. 12 point review of systems is negative except for those stated above Patient History Medical History (Updated 06/04/22 @ 19:39 by Fernando Bonilla DO) Colostomy in place (01/15/19) Diverticulosis Heart murmur Surgical History Hx of appendectomy (~1979) Hx of tubal ligation (~2002) Previous section (~1982) S/P colostomy takedown (04/23/19) S/P laparoscopic procedure (~02/28/18) Family History Mother Diabetes mellitus Social History marital status: household members: spouse occupational status: employed Smoking Status: Never smoker alcohol intake: current substance use type: does not use Smoking Status: Never smoker alcohol intake frequency: holidays/special occasions only Substance Use Type: does not use Exam Narrative Exam Narrative: GENERAL: [56] year old patient appears stated age. Well-developed patient, in mild distress. HEAD: Atraumatic. Normocephalic. EYES: Pupils equal round and reactive. Extraocular motions intact. No scleral icterus. No injection or drainage. ENT: Nose without bleeding, purulent drainage. Throat without erythema, tonsillar hypertrophy or exudate. Airway patent. NECK: Trachea midline. Right-sided paraspinal muscle spasm, tender to palpate, no left-sided pain, no pain with axial loading CARDIOVASCULAR: Regular rate and rhythm without murmurs, gallops, or rubs. RESPIRATORY: Clear to auscultation. Breath sounds equal bilaterally. No wheezes, rales, or rhonchi. GASTROINTESTINAL: Abdomen soft, non-tender, nondistended. EXTREMITIES: No edema or joint tenderness. BACK: Nontender without deformity or crepitance. No flank tenderness. NEURO: AOx3. SKIN: No rash or erythema of visible areas Initial Vital Signs Initial Vital Signs: Vital Signs Temperature 97.5 F L 06/04/22 16:56 Pulse Rate 76 06/04/22 16:56 Respiratory Rate 22 06/04/22 16:56 Blood Pressure 164/81 H 06/04/22 16:56 Pulse Oximetry 99 06/04/22 16:56 Oxygen Delivery Method 06/04/22 16:56 Course Orders Ordered: Discontinued Medications Diazepam (Diazepam 10 Mg/2 Ml Syringe) 2 mg IV NOW ONE Stop: 06/04/22 17:40 Last Admin: 06/04/22 18:15 Dose: 2 mg Documented By: NR Sodium Chloride (Normal Saline 0.9%) 1,000 mls @ 1,000 mls/hr IV BOLUS ONE Stop: 06/04/22 18:38 Last Infusion: 06/04/22 19:42 Dose: 0 mls/hr Documented By: Admin: 06/04/22 18:16 Dose: 1,000 mls/hr Documented By: NR Ketorolac Tromethamine (Ketorolac 30 Mg/Ml Vial) 15 mg IV NOW ONE Stop: 06/04/22 17:40 Last Admin: 06/04/22 18:15 Dose: 15 mg Documented By: NR Vital Signs Vital signs: Vital Signs - 8 hr 06/04/22 16:56 Temperature 97.5 F L Pulse Rate 76 Respiratory Rate 22 Blood Pressure 164/81 H Pulse Oximetry 99 Oxygen Delivery Method Room Air MDM - Headache Lab Data Result diagrams: 06/04/22 17:20 06/04/22 17:20 Labs: Lab Results 06/04/22 06/04/22 Range/Units 17:20 17:20 WBC 5.8 (4.5-11.0) X10^3/uL RBC 4.47 (4.0-5.2) X10^6/uL Hgb 14.0 (12.0-16.0) g/dL Hct 39.6 (36-46) % MCV 88.6 (80-100) fL MCH 31.3 (26-34) PG MCHC 35.3 (30-36) % RDW 12.5 (11.6-14.8) % Plt Count 185 (150-400) X10^3/uL Neut % (Auto) 60.4 (50-75) % Lymph % (Auto) 26.8 (25-40) % [place] % (Auto) 10.4 (3-14) % Eos % (Auto) 1.5 L (2-4) % Baso % (Auto) 0.9 (0-2) % Neut # (Auto) 3500 (1037-1373) /uL Lymph # (Auto) 1600 (9568-5962) /uL [place] # (Auto) 600 (0-900) /uL Eos # (Auto) 100 (0-450) /uL Baso # (Auto) 100 (0-100) /uL ESR 5 (0-20) MM/HR Sodium 141 (137-145) mmol/L Potassium 4.1 (3.4-5.1) mmol/L Chloride 104 (98-107) mmol/L Carbon Dioxide 26 (22-32) mmol/L BUN 12 (7-17) mg/dL Creatinine 0.52 (0.52-1.04) mg/dL Estimated GFR > 60 (>60) mL/min BUN/Creatinine Ratio 23.1 H (6-22) Glucose 103 H (70-100) mg/dL Calcium 9.0 (8.4-10.2) mg/dL Total Bilirubin 0.4 (0.2-1.3) mg/dL AST 51 H (14-36) IU/L ALT 88 H (<35) IU/L Alkaline Phosphatase 50 (38-126) U/L C-Reactive Protein < 0.5 (<1.0) mg/dL Total Protein 7.7 (6.3-8.2) g/dL Albumin 4.4 (3.5-5.0) g/dL Globulin 3.3 (1.7-4.1) g/dL Albumin/Globulin Ratio 1.3 (1.0-2.8) MDM Narrative Medical decision making narrative: Patient again has significant if not complete resolution symptoms after above-stated therapies. Head and neck are greatly improved, she has no other neurologic symptoms. We did discuss whether not there was any utility in performing a lumbar puncture again sure the opinion that it is exceedingly unlikely that would provide meaningful information. I will however initiate antihypertensives this time. Return precautions discussed and questions answered to her apparent satisfaction Discharge Plan Departure Patient Disposition: Home Clinical Impression: HTN (hypertension), Acute tension headache Instructions: High Blood Pressure, DI for Headache Activity Restrictions/Additional Instructions: *You have been diagnosed with [ Headache likely due to spasm in your neck, however there is the potential that high blood pressure is playing a role.] *What to do: *Take medications as directed * prescriptions sent to your pharmacy *Follow up with your primary care provider in 2-3 days, call for an appointment. Let them know you were seen in the Emergency Department and that we ask that you be seen in follow up *Return to ER if you should have any new, worsening or concerning symptoms, such as [ fever > 101F, neck pain or stiffness, vomiting, confusion, seizure, focal weakness, vision change, speech deficit or other concerning symptoms ] Prescriptions: New ketorolac 10 mg tablet 10 mg PO Q6H PRN (Reason: pain) Qty: 20 0RF diazepam [Valium] 2 mg tablet 2 mg PO BID-TID PRN (Reason: muscle spasm) Qty: 20 0RF lidocaine [Lidoderm] 5 % adhesive patch,medicated 1 patch TOP DAILY Qty: 15 0RF Rx Instructions: leave on most painful area for 12 hrs amlodipine 5 mg tablet 5 mg PO DAILY Qty: 30 0RF No Action multivitamin Capsule 1 cap PO DAILY ketorolac 10 mg tablet 10 mg PO Q6H PRN (Reason: pain) Qty: 14 0RF diazepam [Valium] 2 mg tablet 2 mg PO BID-TID PRN (Reason: muscle spasm) Qty: 15 0RF lidocaine [Lidoderm] 5 % adhesive patch,medicated 1 patch TOP DAILY Qty: 15 0RF Rx Instructions: leave on most painful area for 12 hrs ondansetron 4 mg tablet,disintegrating 4 mg PO TID-QID PRN (Reason: nausea and vomiting) Qty: 10 0RF Referrals: Taya Ribeiro ARNP [Primary Care Provider] - Visit Report Forms: Patient Portal/API
[2022-06-04 17:51] LABS: Add Manual Diff / Slide Review NO; Basophils Absolute Auto 100 /uL (0-100); Basophils Percent Auto 0.9 % (0-2); Eosinophils Absolute Auto 100 /uL (0-450); Eosinophils Percent Auto 1.5 % (2-4); Hematocrit 39.6 % (36-46); Lymphocytes Absolute Auto 1600 /uL (1100-4500); Lymphocytes Percent Auto 26.8 % (25-40); Mean Corpuscular HGB Conc 35.3 % (30-36); Mean Corpuscular Hemoglobin 31.3 PG (26-34); Mean Corpuscular Volume 88.6 fL (80-100); Monocytes Absolute Auto 600 /uL (0-900); Monocytes Percent Auto 10.4 % (3-14); Neutrophils Absolute Auto 3500 /uL (1500-7000); Neutrophils Percent Auto 60.4 % (50-75); Platelet Count 185 X10^3/uL (150-400); Red Blood Cell Count 4.47 X10^6/uL (4.0-5.2); Red Cell Distribution Width 12.5 % (11.6-14.8); White Blood Cell Count 5.8 X10^3/uL (4.5-11.0)
[2022-06-04 17:56] LABS: Alanine Aminotransferase 88 IU/L (<35); Albumin 4.4 g/dL (3.5-5.0); Albumin Globulin Ratio 1.3 (1.0-2.8); Alkaline Phosphatase 50 U/L (38-126); Aspartate Aminotransferase 51 IU/L (14-36); BUN Creatinine Ratio 23.1 (6-22); Bilirubin Total 0.4 mg/dL (0.2-1.3); Blood Urea Nitrogen 12 mg/dL (7-17); C-Reactive Protein Quant < 0.5 mg/dL (<1.0); Carbon Dioxide 26 mmol/L (22-32); Chloride 104 mmol/L (98-107); Estimated Glomerular Filt Rate > 60 mL/min (>60); Globulin 3.3 g/dL (1.7-4.1); Glucose 103 mg/dL (70-100); HEMOLYSIS 32 (0-50); Potassium 4.1 mmol/L (3.4-5.1); Sodium 141 mmol/L (137-145); Total Protein 7.7 g/dL (6.3-8.2)
[2022-06-04] MEDS: diazePAM 10 MG/2 ML SYRINGE 2 MG IV (18:15)
[2022-06-04] MEDS: KETOROLAC 30 MG/ML VIAL 15 MG IV (18:15)
[2022-06-04] MEDS: SODIUM CHLORIDE 0.9% 1,000 ML 1000 ML IV (18:16)
[2022-06-04 18:47] LABS: Erythrocyte Sedimentation Rate 5 MM/HR (0-20)
== END 2022-06-04 20:00 | disposition home or self-care (01) ==
PROVIDERS: Emergency Provider Emergency Medicine; PCP Internal Medicine
DX: I10 Essential (primary) hypertension (principal); G44.209 Tension-type headache, unspecified, not intractable
CPT/HCPCS: 36415; 80053; 85025; 85651; 86140; 96361; 96374; 96375; 99284; J1885; J3360

== ENCOUNTER → 2022-06-05 11:42 | Outpatient (CLI) | payer OTHER, MEDICAID, SELFPAY ==
[2022-05-26 04:49] VITALS: BMI 30.7
--- NOTE | 2022-06-05 11:48 | DI.RAD.S_ITS ---
PROCEDURE: XR CERVICAL SPINE 2V OR 3V INDICATIONS: Other muscle spasm TECHNIQUE: 3 view(s) of the cervical spine were acquired. COMPARISON: [facility], CT, CT ANGIO HEAD AND NECK, 05/31/2022, 11:58. FINDINGS: Bones: No fractures or dislocations to the C7-T1 level. The lateral masses of C1 appear intact on the odontoid view. No suspicious bony lesions. Straightening of the normal cervical lordosis, a finding which can be seen in the setting of muscle strain and/or spasm. Moderate multilevel degenerative changes with disc height loss, endplate spurring, and facet arthropathy. Soft tissues: No prevertebral soft tissue swelling. IMPRESSION: Moderate multilevel degenerative changes of the cervical spine. Dictated by: Rey Carson M.D. on 06/05/2022 at 15:40 Approved by: Rey Carson M.D. on 06/05/2022 at 15:45
== END ==
PROVIDERS: PCP Internal Medicine; Referring Provider Internal Medicine; Visit Provider Internal Medicine
DX: M62.838 Other muscle spasm (principal); M47.812 Spondylosis without myelopathy or radiculopathy, cervical region
CPT/HCPCS: 72040

== ENCOUNTER → 2022-06-13 13:44 | Outpatient (CLI) | payer OTHER, MEDICAID, SELFPAY ==
[2022-05-26 04:49] VITALS: BMI 30.7
== END ==
PROVIDERS: PCP Internal Medicine; Referring Provider Internal Medicine; Visit Provider Internal Medicine
DX: R90.89 Other abnormal findings on diagnostic imaging of central nervous system (principal); R51.9 Headache, unspecified; Z53.20 Procedure and treatment not carried out because of patient's decision for unspecified reasons

== ENCOUNTER → 2023-05-02 14:30 | Outpatient (CLI) | payer OTHER, MEDICAID, SELFPAY ==
[2022-05-26 04:49] VITALS: BMI 30.7
--- NOTE | 2023-05-02 | DI.MG.S_ITS ---
BILATERAL DIGITAL SCREENING MAMMOGRAM 3D/2D WITH CAD: 05/02/2023 CLINICAL: Routine screening. Comparison is made to exams dated: 04/24/2022 mammogram, 04/19/2021 mammogram, and 04/02/2020 mammogram - [facility]. Both breasts are heterogeneously dense, which may obscure small masses (category c / 51-75% glandular tissue). Current study was also evaluated with a Computer Aided Detection (CAD) system. No significant masses, calcifications, or other findings are seen in either breast. IMPRESSION: NEGATIVE There is no mammographic evidence of malignancy. A 1 year screening mammogram is recommended. Based on the Tyrer Cuzick model (a risk assessment model) the patient's lifetime risk is 7.8% and her 10 year risk is 3.0%. According to the ACR, ACS, and NCCN guidelines, an annual breast MRI exam along with mammogram is recommended if the patient's lifetime risk is 20% or greater. This exam was interpreted at Station ID: [id number]. NOTE: For mammograms, a report in lay terms will be sent to the patient. Approximately 15% of breast malignancies will not be visualized mammographically. In the management of a palpable breast mass, a negative mammogram must not discourage biopsy of a clinically suspicious lesion. Electronically Signed By: Jazmine [email or web address]:05/02/2023 23:51:02 letter sent: Normal Exam ACR BI-RADS Category 1: Negative [id number]
== END ==
PROVIDERS: PCP Internal Medicine; Referring Provider Internal Medicine; Visit Provider Internal Medicine
DX: Z12.31 Encounter for screening mammogram for malignant neoplasm of breast (principal)
CPT/HCPCS: 77063; 77067